=== PATIENT | female | born 1990 | race Caucasian/White ===

== ENCOUNTER 2024-03-29 19:52 | Outpatient (REF) | payer BC, SELFPAY ==
[2024-04-04 08:13] LABS: Age Gdln ACOG Testing Note (.); HPV Aptima Negative (Negative); IGP, Aptima HPV, rfx 16/18,45 Note (.)
== END 2024-03-29 19:53 | disposition home or self-care (01) ==
LOC: LAB 19:52
PROVIDERS: Visit Provider Obstetrics & Gynecology
DX: Z01.419 Encounter for gynecological examination (general) (routine) without abnormal findings (principal)
CPT/HCPCS: 87624; G0145

== ENCOUNTER 2024-04-20 08:07 | Outpatient (OUT) | payer BC, SELFPAY ==
--- NOTE | 2024-04-20 08:10 | CT_ITS ---
[address] [address] Patient Name: RIVER FITZGERALD MRN: [id number] date: 1990 Sex: F Assigned Patient Location: CT Current Patient Location: Accession/Order Number: [id number] Exam Date: 04/20/2024 09:15 Report Date: 04/21/2024 07:28 At the request of: AUTUMN SHIPLEY Procedure: CT abdomen pelvis w con EXAMINATION: CT abdomen pelvis w con HISTORY: Right sided abdominal pain R10.9 ; right groin pain COMPARISON: No relevant comparison available. TECHNIQUE: Axial, Coronal, and Sagittal images were obtained without and/or with IV contrast as indicated by examination type. Dose reduction techniques were achieved by using automated exposure control and/or adjustment of mA and/or kV according to patient size and/or use of iterative reconstruction technique. FINDINGS: LUNG BASES: No visible pulmonary or pleural disease. LIVER: No enlargement, atrophy, suspicious density, or significant focal lesion. BILIARY: No dilatation or calcification. PANCREAS: No lesion, fluid collection, or abnormal duct dilatation. SPLEEN: Enlarged, 13.9 cm. ADRENALS: No mass or enlargement. KIDNEYS: No mass, obstruction, or calcification. BOWEL/MESENTERY: No visible mass, obstruction, or bowel wall thickening. Normal appendix. AORTA/VASCULAR: No aneurysm or dissection. RETROPERITONEUM: No mass or adenopathy. LYMPH NODES: No adenopathy. URINARY BLADDER: No visible focal wall thickening, lesion, or calculus. PELVIC ORGANS: Hysterectomy. Normal appearing ovaries. ABDOMINAL WALL: No mass or hernia. BONES: No bony lesion or fracture. OTHER: Negative. CT/CT abdomen pelvis w con IMPRESSION: 1. Mild splenomegaly; nonspecific. 2. No suspicious findings to account for patient's symptoms. Electronically authenticated by: GUMARO LA Date: 04/21/2024 07:28
--- OUTSIDE RECORDS SUMMARY | 2024-04-20 08:22 | XMS_ITS | CCD ---
Author Organization [facility] Care Team Providers Care Processing Archivist Name Role Phone QUINTEN, DR LEYVA Admitting Unavailable QUINTEN, DR LEYVA Attending Unavailable REQUEST, NONE LISTED Primary Care Unavaila ble WEST, DR TERESA Ayala Consulting Unavailable QUINTEN, DR LEYVA Consulting Unavailable QUINTEN, DR LEYVA Admitting Unavailable QUINTEN, DR LEYVA Attending Unavailable REQUEST, NONE LISTED Primary Care Unavaila ble QUINTEN, DR LEYVA Consulting Unavailable QUINTEN, DR LEYVA Admitting Unavailable QUINTEN, DR LEYVA Attending Unavailable REQUEST, NONE LISTED Primary Care Unavaila ortiz SOTELO, DR LEYVA Consulting Unavailable Sayda Irene Unavailable Remedios Padilla Unavailable Rich Burnette Primary Care Physician Rich Burnette Attending Unavailable VANESSA Hammer Admitting Unavailable VANESSA Hammer Attending Unavailable Rich Burnette Attending Unavailable Rich Burnette Admitting Unavailable Rich Burnette Attending Unavailable Rich Burnette Attending Unavailable Rich Burnette Attending Unavailable VANESSA Hammer Attending Unavailable Rich Burnette Attending Unavailable AUTUMN SOTELO Attending Unavailable AUTUMN SOTELO Attending Unavailable Allergies Allergy Classification Reported Allergen(s) Allergy Type Date of Onset Reaction(s) Facility (1 source) No Known Medication Allergies; Translations: [No Known Medication Allergies] Propensity to adverse reactions (disorder) [facility] Medications Current Medications Medication Drug Class(es) Dates Sig (Normalized) Sig (Original) amoxicillin 875 mg oral tablet (2 sources) Penicillin-class Antibacterial Start: 05-09-2023 take 1 tablet by mouth every twelve hours Amoxicillin 875 MG 1 tablet Orally Twice a day for 9 days Apr, Active amoxicillin 875 mg / clavulanate 125 mg oral tablet (4 sources) Penicillin-class Antibacterial Start: 07-26-2023 amoxicillin-clavu lanate 875 mg-125 mg Tab 1 tab(s), Oral, q12hr, 20 tab(s), Refill(s) 0, [facility]/pharmacy #[id number], 157.5, cm, 07/26/23 16:44:00 EDT, Height/Length Dosing, 110.2, kg, 07/26/23 16:44:00 EDT, Weight Dosing Start Date: 07/26/23 Status: Ordered Start: 05-07-2023 take 1 tablet by john th every twelve hours Amoxicillin-Pot Clavulanate 875-125 MG 1 tablet Orally every 12 hrs for 10 day(s) Apr, Active cetirizine hydrochloride 10 mg disintegrating oral tablet (2 sources) Histamine-1 Receptor Antagonist Start: 03-19-2021 Zyrtec Dissolve 10 mg oral tablet, dispersible 10 mg = 1 tab(s), Oral, Daily, PRN for allergy symptoms, # 24 tab(s), Refills(s) 0 Start Date: 03/19/21 Status: Ordered fluticasone propionate 0.05 mg/actuat metered dose nasal spray (3 sources) Corticosteroid Start: 05-07-2023 take 2 spray(s) nasal route once daily Fluticasone Propionate 50 MCG/ACT 2 sprays Nasally Once a day for 14 day(s) Apr, Active predniSONE 20 mg oral tablet (3 sources) Start: 05-07-2023 take 1 tablet by mouth every twelve hours predniSONE 20 MG 1 tablet Orally bid for 5 day(s) Apr, Active Problems Active Problems Problem Classification Problem Date Documented Date Episodic/Chronic Abdominal pain (2 sources) Pain in pelvis 03-19-2021 Episodic Asthma (2 sources) Asthma 03-19-2021 Chronic Esophageal disorders (2 sources) Gastroesophageal reflux disease without esophagitis 03-19-2021 Chronic Genitourinary symptoms and ill-defined conditions (2 sources) Urinary symptoms 03-19-2021 Episodic Headache; including migraine (2 sources) Frequent headache 03-19-2021 Episodic Lymphadenitis (2 sources) Lymphadenitis 07-26-2023 Episodic Nonmalignant breast conditions (2 sources) Breast lump 03-19-2021 Episodic Other female genital disorders (4 sources) Other specified conditions associated with female genital organs and menstrual cycle; Translations: [OTH SPEC COND FE GEN ORG MENST CYCL] Onset: 12-21-2022 Episodic Other female genital disorders (2 sources) Dysplasia of cervix 03-19-2021 Episodic Other upper respiratory infections (1 source) Acute sinusitis, unspecified Episodic Ovarian cyst (1 source) Other ovarian cyst, left side; Translations: [OTHER OVARIAN CYST LEFT SIDE] Onset: 12-23-2022 Episodic Substance-related disorders (2 sources) Smoker 03-19-2021 Chronic Comment on above: Added secondary to d ocumentation in Social History. Unclassified (2 sources) Patient encounter status 07-26-2023 Past or Other Problems Problem Classification Problem Date Documented Date Episodic/Chronic Immunizations and screening for infectious disease (1 source) Encounter for screening for human papillomavirus (HPV); Translations: [ENC SCREENING HUMAN PAPILLOMAVIRUS] Onset: 08-20-2022 Episodic Other endocrine disorders (1 source) Endocrine disorder, unspecified; Translations: [ENDOCRINE DISORDER UNSPECIFIED] Onset: 08-20-2022 Episodic Other screening for suspected conditions (not mental disorders or infectious disease) (4 sources) Encounter for screening for malignant neoplasm of cervix; Translations: [ENC SCREENING MALIG NEOPLASM CERV] Onset: 08-18-2022 Episodic Results Test Name Value Interpretation Reference Range Facility Family Medicine Office/Clini c Noteon 10-27-2023 Family Medicine Office/Clinic Note HPI Staff River is a 33 year old female presenting for acute visit Respiratory C/O: Onset:6 days Body aches: no Chest congestion: yes Chills: no Cough: yes Sputum production: yes yellow Sore throat: no Ear complaints: yes full Eye itching/watering: yes Fever: no Headache: yes Nasal congestion: yes Nasal discharge: no Poor appetite: no Reduced activity: no Sinus pain/pressure: yes Sneezing: yes Wheezing: no Ill contacts: yes son Remedies tried: Mucinex, Sudafed, Benadryl congestion at night History of Present Illness - Here for sinus issues. - See staff HPI. Review of Systems PHQ Score Initial Depression Screen Score: 0 SCORE Physical Exam Vitals & Measurements T: 36.9 ?C(Tympanic) HR: 76(Peripheral) BP: 138/80 SpO2: 98% HT: 62 in HT: 157.5 cm WT: 111.1 kg WT: 244.42 lb BMI: 44.79 General: alert, no acute distress ENMT: oral mucosa moist, Cardiovascular: regular rate and rhythm, normal peripheral perfusion Respiratory: Lungs CTA, respirations non labored Extremities: no deformity, no trauma Neurological: oriented x 4, LOC appropriate for age, CN II-XII intact, motor strength equal & normal bilaterally, speech normal Abdomen: Soft, Nontender, Non-distended, + BS Assessment/Plan 1. Sinus pressure (J34.89: Other specified disorders of nose and nasal sinuses) Covid negative Flu negative - Will do pocket script of Azithromycin and Medrol. - Pt will need to use OTC meds first. - If no improvement, ok to take Meds as above 2. BMI 40.0-44.9, adult (Z68.41: Body mass index [BMI] 40.0-44.9, adult) - BMI education given 3. Smoker (F17.200: Nicotine dependence, unspecified, uncomplicated) - Please stop smoking. Follow-up No qualifying data available Patient Education BMI for Adults Problem List/Past Medical History Ongoing Asthma Breast lump in female Cervical dysplasia Frequent headaches GERD without esophagitis Pelvic pain Physical exam Sinus pressure Smoker Historical No qualifying data Procedure/Surgical History Adenoidectomy, delivery, Excision of right breast lump, Hysterectomy, LEEP (Loop electrosurgical excision procedure) of cervix, Tonsillectomy. Medications Azithromycin 3 Day Dose Pack 500 mg oral tablet, 500 mg= 1 tab(s), Oral, Daily Zyrtec Dissolve 10 mg oral tablet, dispersible, 10 mg= 1 tab(s), Oral, Daily, PRN Allergies Augmentin (Vomiting) penicillins (Vomiting) Social History Tobacco Former smoker, quit more than 30 days ago Tobacco Use:. Current vaping or e-cigarette use Smokeless Tobacco Use:. Vaping, Household tobacco concerns: No., 09/30/2023 Family History Asthma: Mother and Sister. Hypertension: Father. Immunizations Vaccine Date Status Comments influenza virus vaccine, inactivated - Not Given Postpone due to refusal influenza virus vaccine, inactivated 08/24/2019 Recorded influenza virus vaccine, inactivated 12/01/2017 Recorded diphtheria/pertussis , acel/tetanus adult 12/10/2015 Recorded hepatitis B pediatric vaccine 11/11/2000 Recorded hepatitis B pediatric vaccine 07/11/2000 Recorded hepatitis B pediatric vaccine 05/09/2000 Recorded Hib, unspecified formulation 05/28/1991 Recorded measles/mumps/rubell a virus vaccine 07/11/1990 Recorded [facility] Comment on above: Result Comment: Elec tronically Signed By: Rich Burnette MD\.br\Date and Time Signed: 10/27/23 12:56 EST Ambulatory Visit Summaryon 1 11-30-2022 Ambulatory Visit Summary RIVER FITZGERALD :1990 Visit Date:09/30/2023 Ambulatory Visit Instructions Your Diagnosis BMI 40.0-44.9, adult Smoker Your Care Team Attending Physician - Rich Burnette MD Primary Care Physician - Rich Burnette MD This Is Your Medications List cetirizine (Zyrtec Dissolve 10 mg oral tablet, dispersible) Procedures Performed Adenoidectomy, delivery, Excision of right breast lump, Hysterectomy, LEEP (Loop electrosurgical excision procedure) of cervix, Tonsillectomy. Discharge Vitals Temperature (Tympanic) 36.9 ?C Heart Rate (Peripheral) 76 Blood Pressure 138/80 Height 157.5 cm Height 62 in Weight 111.1 kg Weight 244.42 lb BMI 44.79 Medications What How Much When Instructions Unchanged cetirizine (Zyrtec Dissolve 10 mg oral tablet, dispersible) 1 Tablets By Mouth Every day as needed for for allergy symptoms Allergies Augmentin (Vomiting) penicillins (Vomiting) Problems Ongoing - Any problem that you are currently receiving treatment for. Asthma Breast lump in female Cervical dysplasia Frequent headaches GERD without esophagitis Lymphadenitis Pelvic pain Physical exam Smoker UTI symptoms Patient Survey You may receive a survey via text or e-mail asking about your office visit. Please share your experience with us by completing your survey. We appreciate your feedback and thank you for choosing us for your care. [facility] Patient Educationon 09-30-20 Patient Education Nutrition BMI for Adults What is BMI? Body mass index (BMI) is a number that is calculated from a person's weight and height. BMI can help estimate how much of a person's weight is composed of fat. BMI does not measure body fat directly. Rather, it is an alternative to procedures that directly measure body fat, which can be difficult and expensive. BMI can help identify people who may be at higher risk for certain medical problems. What are BMI measurements used for? BMI is used as a screening tool to identify possible weight problems. It helps determine whether a person is obese, overweight, a healthy weight, or underweight. BMI is useful for: ? Identifying a weight problem that may be related to a medical condition or may increase the risk for medical problems. ? Promoting changes, such as changes in diet and exercise, to help reach a healthy weight. BMI screening can be repeated to see if these changes are working. How is BMI calculated? BMI involves measuring your weight in relation to your height. Both height and weight are measured, and the BMI is calculated from those numbers. This can be done either in [place] ([place] or metric measurements. Note that charts and online BMI calculators are available to help you find your BMI quickly and easily without having to do these calculations yourself. To calculate your BMI in [place] ([place] measurements: 1. Measure your weight in pounds (lb). 2. Multiply the number of pounds by 703. ? For example, for a person who weighs 180 lb, multiply that number by 703, which equals 126,540. 3. Measure your height in inches. Then multiply that number by itself to get a measurement called inches squared. ? For example, for a person who is 70 inches tall, the inches squared measurement is 70 inches x 70 inches, which equals 4,900 inches squared. 4. Divide the total from step 2 (number of lb x 703) by the total from step 3 (inches squared): 126,540 ? 4,900 = 25.8. This is your BMI. To calculate your BMI in metric measurements: 1. Measure your weight in kilograms (kg). 2. Measure your height in meters (m). Then multiply that number by itself to get a measurement called meters squared. ? For example, for a person who is 1.75 m tall, the meters squared measurement is 1.75 m x 1.75 m, which is equal to 3.1 meters squared. 3. Divide the number of kilograms (your weight) by the meters squared number. In this example: 70 ? 3.1 = 22.6. This is your BMI. What do the results mean? BMI charts are used to identify whether you are underweight, normal weight, overweight, or obese. The following guidelines will be used: ? Underweight: BMI less than 18.5. ? Normal weight: BMI between 18.5 and 24.9. ? Overweight: BMI between 25 and 29.9. ? Obese: BMI of 30 or above. Keep these notes in mind: ? Weight includes both fat and muscle, so someone with a muscular build, such as an athlete, may have a BMI that is higher than 24.9. In cases like these, BMI is not an accurate measure of body fat. ? To determine if excess body fat is the cause of a BMI of 25 or higher, further assessments may need to be done by a health care provider. ? BMI is usually interpreted in the same way for men and women. Where to find more information For more information about BMI, including tools to quickly calculate your BMI, go to these websites: ? Centers for Disease Control and Prevention: www.cdc.gov ? [place] [employer]: www.heart.org ? National Heart, Lung, and Blood [place]: www.nhlbi.nih.gov Summary ? Body mass index (BMI) is a number that is calculated from a person's weight and height. ? BMI may help estimate how much of a person's weight is composed of fat. BMI can help identify those who may be at higher risk for certain medical problems. ? BMI can be measured using Bulgarian measurements or metric measurements. ? BMI charts are used to identify whether you are underweight, normal weight, overweight, or obese. This information is not intended to replace advice given to you by your health care provider. Make sure you discuss any questions you have with your health care provider. Document Revised: 07/23/2020 Document Reviewed: 05/30/2020 [employer] Patient Education ? 2022 [employer] [facility] Ambulatory Visit Summaryon 1 Ambulatory Visit Summary RIVER FITZGERALD :1990 Visit Date:09/08/2023 Ambulatory Visit Instructions Your Diagnosis BMI 45.0-49.9, adult Class 3 obesity Back pain Tests Performed Urnls Dip Stick Non-Auto w/o Micrscpy POC 40406 Your Care Team Attending Physician - Ana Rowell Primary Care Physician - Vasile FRAGOSO, Rich Zhou This Is Your Medications List cetirizine (Zyrtec Dissolve 10 mg oral tablet, dispersible) Procedures Performed Adenoidectomy, delivery, Excision of right breast lump, Hysterectomy, LEEP (Loop electrosurgical excision procedure) of cervix, Tonsillectomy. Discharge Vitals Temperature (Temporal Artery) 37.2 ?C Heart Rate (Peripheral) 78 Respiratory Rate 16 Blood Pressure 130/72 Height 157.5 cm Height 62 in Weight 110.3 kg Weight 242.66 lb BMI 44.46 Medications What How Much When Instructions Unchanged cetirizine (Zyrtec Dissolve 10 mg oral tablet, dispersible) 1 Tablets By Mouth Every day as needed for for allergy symptoms Test Results Urnls Dip Stick Non-Auto w/o Micrscpy POC 48510 (09/08/2023) Bilirubin Urine Dipstick - Negative Blood Urine Dipstick - Negative Glucose Urine Dipstick - Negative Ketones Urine Dipstick - Negative Leukocytes Urine Dipstick - Negative Nitrite Urine Dipstick - Negative Protein Urine Dipstick - Negative Specific [place] Urine Dipstick - 1.010 Urine Appearance Urine Dipstick - Clear Urine Color Urine Dipstick - Light yellow Urobilinogen Urine Dipstick - Normal 0.2-1 EU/dl pH Urine Dipstick - 6.5 Medications and Immunizations Administered Not Given influenza virus vaccine, inactivated, Postpone due to refusal Allergies No Known Medication Allergies Problems Ongoing - Any problem that you are currently receiving treatment for. Asthma Breast lump in female Cervical dysplasia Frequent headaches GERD without esophagitis Lymphadenitis Pelvic pain Physical exam Smoker UTI symptoms Patient Survey You may receive a survey via text or e-mail asking about your office visit. Please share your experience with us by completing your survey. We appreciate your feedback and thank you for choosing us for your care. [facility] Auto Diffon 09-08-2023 Basophils/100 WBC (Bld) 0.5 % Normal 0.0-2.0 [facility] Comment on above: Order Comment: Order Added by Discern Expert. Performed By: #### 2 [id number], 1970914, 5962259, 7177959, 9619704, [id number] #### [facility] [address] [place] [address]392 Basophils/Leukocytes Auto (Bld) [Pure # fraction] 0.0 E9/L Normal 0.0-0.2 [facility] Comment on above: Order Comment: Order Added by Discern Expert. Performed By: #### 2 114964, 4878940, 2850187, 2044206, 1975471, [id number] #### [facility] [address] [place] [address] 21136 Eosinophils/100 WBC (Bld) 2.1 % Normal 0.0-8.0 [facility] Comment on above: Order Comment: Order Added by Discern Expert. Performed By: #### 2 988658, 7263311, 8045685, 8437359, 9429879, 12532542 #### [facility] [address] [place] [address] 38840 Eosinophils/Leukocyte s Auto (Bld) [Pure # fraction] 0.2 E9/L Normal 0.0-0.5 [facility] Comment on above: Order Comment: Order Added by Discern Expert. Performed By: #### 2 535228, 9354331, 1877263, 0024906, 1077893, [id number] #### [facility] [address] [place] [address] 56461 Lymphocytes/100 WBC (Bld) 24.1 % Normal 14.0-50.0 [facility] Comment on above: Order Comment: Order Added by Discern Expert. Performed By: #### 2 989480, 9996565, 2221218, 2743344, 1018310, 30213608 #### [facility] [address] [place] [address] 94534 Lymphocytes/Leukocyte s Auto (Bld) [Pure # fraction] 2.0 E9/L Normal 1.0-4.0 [facility] Comment on above: Order Comment: Order Added by Discern Expert. Performed By: #### 2 885877, 6774690, 9079676, 4822988, 5650478, 65731210 #### [facility] [address] [place] [address] 76224 Monocytes/100 WBC (Bld) 5.0 % Normal 4.0-14.0 [facility] Comment on above: Order Comment: Order Added by Discern Expert. Performed By: #### 2 263983, 7077006, 7439599, 0544646, 8179133, 13476652 #### [facility] [address] [place] [address] Monocytes/Leukocytes Auto (Bld) [Pure # fraction] 0.4 E9/L Normal 0.2-1.0 [facility] Comment on above: Order Comment: Order Added by Discern Expert. Performed By: #### 2 498653, 5098569, 6910209, 7529094, 4099638, 67444057 #### [facility] [address] [place] [address] 30328 Neutrophils/100 WBC (Bld) 68.3 % Normal 36.0-75.0 [facility] Comment on above: Order Comment: Order Added by Discern Expert. Performed By: #### 2 201905, 8253317, 2201982, 5023843, 3939902, 91660650 #### [facility] [address] [place] [address] 35601 Neutrophils/Leukocyte s Auto (Bld) [Pure # fraction] 5.5 E9/L Normal 2.0-7.5 [facility] Comment on above: Order Comment: Order Added by Discern Expert. Performed By: #### 2 516977, 6319267, 4658566, 7465224, 3349819, 42614084 #### [facility] [address] [place] [address] 13609 CBC w/ Auto Diffon Erythrocyte distribution width (RBC) [Ratio] 13.7 % Normal 10.9-14.2 [facility] Comment on above: Performed By: #### 2 096372, 1771873, 5312786, 7938979, 3039455, 08736486 #### [facility] [address] [place] [address] 09540 Hematocrit (Bld) [Volume fraction] 41.8 % Normal 34.0-46.0 [facility] Comment on above: Performed By: #### 2 831777, 6309311, 4873710, 5811351, 1663090, 79853798 #### [facility] [address] [place] [address] Hemoglobin (Bld) [Mass/Vol] 13.7 g/dL Normal 12.0-16.0 [facility] Comment on above: Performed By: #### 2 194429, 3912005, 0184708, 5251229, 2524691, 59774601 #### [facility] [address] [place] [address] 29251 MCH (RBC) [Entitic mass] 28.7 pg Normal 27.0-34.0 [facility] Comment on above: Performed By: #### 2 391458, 8153605, 7862355, 4595965, 4597446, 53594689 #### [facility] [address] [place] [address] 00711 MCHC (RBC) [Mass/Vol] 32.8 g/dL Normal 31.4-36.0 [facility] Comment on above: Performed By: #### 2 686335, 3068190, 1173056, 6439467, 3412008, 77967010 #### [facility] [address] [place] [address] 13233 MCV (RBC) [Entitic vol] 87.5 fL Normal 80.0-100.0 [facility] Comment on above: Performed By: #### 2 588303, 0448658, 8591978, 4752924, 9255436, 17495380 #### [facility] [address] [place] [address] 93960 Platelet mean volume (Bld) [Entitic vol] 8.7 fL Normal 6.4-10.8 [facility] Comment on above: Performed By: #### 2 744502, 5189747, 7637646, 5849325, 8716476, 68762086 #### [facility] [address] [place] [address] 29925 Platelets (Bld) [#/Vol] 264.0 E9/L Normal 150.0-500.0 [facility] Comment on above: Performed By: #### 2 809898, 2672403, 3452345, 0482685, 7022003, 97253744 #### [facility] [address] [place] [address] RBC (Bld) [#/Vol] 4.8 E12/L Normal 4.3-5.9 [facility] Comment on above: Performed By: #### 2 932127, 6579278, 5890026, 4354834, 8390635, 70964593 #### [facility] [address] [place] [address] WBC corrected for nucl RBC Auto (Bld) [#/Vol] 8.1 E9/L Normal 4.0-11.0 [facility] Comment on above: Performed By: #### 2 843954, 7303737, 4170508, 3931546, 2967416, 34231306 #### [facility] [address] [place] [address] CHEMISTRYOrdered By: SYSTEM SYSTEM on 09-08-2023 Albumin [Mass/Vol] 4.4 g/dL Normal 3.3 - 5.0 gm/dL [facility] Albumin/Globulin [Mass ratio] 1.5 {ratio} Normal 1.1 - 2.2 [facility] ALP [Catalytic activity/Vol] 66 [iU]/d Normal 21 - 98 Int._Unit/L [facility] ALT No additional P-5'-P [Catalytic activity/Vol] 17 [iU]/d Normal 6 - 46 Int._Unit/L [facility] Anion gap [Moles/Vol] 6 mmol/L Normal 6 - 16 mEq/L [facility] AST [Catalytic activity/Vol] 15 [iU]/d Normal 5 - 43 Int._Unit/L [facility] Bilirubin [Mass/Vol] 0.3 mg/dL Normal 0.0 - 1 .1 mg/dL [facility] Calcium [Mass/Vol] 9.4 mg/dL Normal 8.9 - 11. 1 mg/dL [facility] Chloride [Moles/Vol] 110 mmol/L Normal 101 - 1 11 mmol/L [facility] Cholesterol [Mass/Vol] 169 mg/dL Normal 120 - 200 mg/dL [facility] Cholesterol in HDL [Mass/Vol] 53 mg/dL Invalid Interpretation Code [facility] Comment on above: Interpretive Data: H DL > or equal to 60 mg/dL: Low cardiovascular risk HDL < 40 mg/dL : High cardiovascular risk Cholesterol in LDL [Mass/Vol] 94 mg/dL Normal <=129mg/dL [facility] Cholesterol in VLDL [Mass/Vol] 27 mg/dL Normal 7 - 40 mg/dL [facility] CO2 [Moles/Vol] 24 mmol/L Normal 21 - 31 mmol/L [facility] Creatinine [Mass/Vol] 0.7 mg/dL Normal 0.5 - 1.3 mg/dL [facility] GFR/1.73 sq M.predicted among non-blacks MDRD (S/P/Bld) [Vol rate/Area] 116 mL/min/1.73 m2 Normal >=59mL/min/1. 73 m2 [facility] Comment on above: Interpretive Data: C hronic kidney disease could be indicated at eGFR's of less than 60 mL/min/1.73m2. Kidney failure is indicated at less than 15 mL/min/1.73m2. Globulin (S) [Mass/Vol] 3.0 g/dL Normal 1.4 - 4.0 gm/dL [facility] Glucose [Mass/Vol] 80 mg/dL Normal 55 - 199 mg/dL [facility] Comment on above: Interpretive Data: I f this glucose result represents a fasting glucose, interpretation should refer to the following reference range: 55-99 mg/dL Potassium [Moles/Vol] 3.9 mmol/L Normal 3.5 - 5.3 mmol/L [facility] Protein [Mass/Vol] 7.4 g/dL Normal 6.0 - 7.8 gm/dL [facility] Sodium [Moles/Vol] 136 mmol/L Normal 135 - 145 mmol/L [facility] Triglyceride [Mass/Vol] 133 mg/dL Normal <=149mg/dL [facility] TSH Qn 1.96 m[IU]/L Normal 0.34 - 5.60 mcIU/mL [facility] Urea nitrogen [Mass/Vol] 15 mg/dL Normal 5 - 21 mg/dL [facility] Urea nitrogen/Creatinine [Mass ratio] 21 mg/mg High [facility] CMPon 09-08-2023 Albumin [Mass/Vol] 4.4 g/dL Normal 3.3-5.0 [facility] Comment on above: Performed By: #### 2 172165, 7314678, 1348682, 6063913, 9078858, [id number] #### [facility] [address] [place] [address] Albumin/Globulin (S) [Mass conc ratio] 1.5 Normal 1.1-2.2 [facility] Comment on above: Performed By: #### 2 611974, 0456612, 7296163, 0440519, 6038045, [id number] #### [facility] [address] [id number] ALP [Catalytic activity/Vol] 66 Int._Unit/L Normal 21-98 [facility] Comment on above: Performed By: #### 2 805904, 0389347, 1471242, 8256120, 5678713, [id number] #### [facility] [address] [place] [address] ALT No additional P-5'-P [Catalytic activity/Vol] 17 Int._Unit/L Normal 6-46 [facility] Comment on above: Performed By: #### 2 152719, 4115708, 8007643, 4239259, 0046450, [id number] #### [facility] [address] [place] [address] Anion gap [Moles/Vol] 6 mmol/L Normal 6-16 [facility] Comment on above: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 Result Comment: This nucleic acid amplification test detects fourteen high-risk HPV types (16,18,31,33,35,39,45,51,52,56,58,59,66,68) without differentiation. Performed at: =G Performed By: #### [id number] #### [facility] [address] [place] [address] Dr. Edie Rincon Methodology: Comment Normal [facility] Comment on above: Result Comment: This liquid based ThinPrep(R) pap test was screened with the use of an image guided system. Performed at: WB Performed By: #### [id number] #### [facility] [address] [place] [address] Dr. Edie Rincon Note: Comment Normal [facility] Comment on above: Result Comment: The Pap smear is a screening test designed to aid in the detection of premalignant and malignant conditions of the uterine cervix. It is not a diagnostic procedure and should not be used as the sole means of detecting cervical cancer. Both false-positive and false-negative reports do occur. . Performed at: WB Performed By: #### [id number] #### [facility] [address] [place] [address] Dr. Edie Rincon Performed by: Comment Normal [facility] Comment on above: Result Comment: Robert Martell [employer] Supervisor (ASCP) Performed at: WB Performed By: #### [id number] #### [facility] [address] [place] [address] Dr. Edie Rincon Specimen adequacy: Comment Normal [facility] Comment on above: Result Comment: Sati sfactory for evaluation. No endocervical component is identified. Performed at: WB Performed By: #### [id number] #### [facility] [address] [place] [address] Dr. Edie Rincon SEROTONINon 08-25-2022 Serotonin, Serum 54 ng/mL Normal 31-207 [facility] Comment on above: Performed By: #### F RECORT #### [facility] [address] [place] [address] Dr. Edie Rincon FREE TESTOSTERONEon 08-23-20 22 Free Testosterone(Direct) 2.8 pg/mL Normal 0.0-4.2 [facility] Comment on above: Performed By: #### F T4, FERR #### [facility] [address] [place] [address] Dr. Edie Rincon REVERSE T3on 08-23-2022 Reverse T3, Serum 11.1 ng/dL Normal 9.2-24.1 [facility] Comment on above: Result Comment: This test was developed and its performance characteristics determined by [employer]. It has not been cleared or approved by the Food and Drug Administration. Performed By: #### F RECORT #### [facility] [address] [address] [address] Edie Rincon VIT D 1 25 DIHYDROXYon 08-21 Calcitriol(1,25 di-OH Vit D) 18.8 pg/mL Critically low 24.8-81.5 [facility] Comment on above: Result Comment: Pl ease note reference interval change Performed By: #### V [id number] #### [facility] [address] [place] [address] Dr. Edie Rincon C-PEPTIDE, SERUMon 2 C-Peptide, Serum 2.9 ng/mL Normal 1.1-4.4 [facility] Comment on above: Result Comment: C-Pe ptide reference interval is for fasting patients. Performed By: #### F RECORT #### [facility] [address] [place] [address] Dr. Edie Rincon DHEA-SULFATEon 08-20-2022 DHEA-Sulfate 271.0 ug/dL Normal 84.8-378.0 [facility] Comment on above: Performed By: #### D HEASUL #### [facility] [address] [place] [address] Dr. Edie Rincon ESTRADIOLon 08-20-2022 Estradiol 68.2 pg/mL Normal [facility] Comment on above: Result Comment: Adul t Female: Follicular phase 12.5 - 166.0 Ovulation phase 85.8 - 498.0 Luteal phase 43.8 - 211.0 Postmenopausal <6.0 - 54.7 1st trimester 215.0 - >4300.0 Kai ECLIA methodology Performed By: #### F RECORT #### [facility] [address] [place] [address] Dr. Edie Rincon INSULINon 08-20-2022 Insulin 17.7 uIU/mL Normal 2.6-24.9 [facility] Comment on above: Performed By: #### F T4, FERR #### [facility] [address] [place] [address] Dr. Edie Rincon PROGESTERONEon 08-20-2022 Progesterone 4.5 ng/mL Normal [facility] Comment on above: Result Comment: Foll icular phase 0.1 - 0.9 Luteal phase 1.8 - 23.9 Ovulation phase 0.1 - 12.0 First trimester 11.0 - 44.3 Second trimester 25.4 - 83.3 Third trimester 58.7 - 214.0 Postmenopausal 0.0 - 0.1 Performed By: #### F RECORT #### [facility] [address] [place] [address] Dr. Edie Rincon SEX HORMONE-BINDING GLOBULIN on 08-20-2022 Sex Horm Binding Glob, Serum 54.6 nmol/L Normal 24.6-122.0 [facility] Comment on above: Performed By: #### F T4, FERR #### [facility] [address] [place] [address] Dr. Edie Rincon T3, TOTAL (TRIIODOTHYRONINE) on 08-20-2022 T3, TOTAL 128 ng/dL Normal 71-180 [facility] Comment on above: Performed By: #### F RECORT #### [facility] [address] [place] [address] Dr. Edie Rincon TESTOSTERONE, TOTALon 2021 Testosterone [Mass/Vol] 45 ng/dL Normal 8-60 [facility] Comment on above: Performed By: #### T ESTTOT #### [facility] [address] [place] [address] Dr. Edie Rincon THYROGLOBULIN ABon Thyroglobulin Antibody <1.0 Normal 0.0-0.9 [facility] Comment on above: Result Comment: Thyr oglobulin Antibody measured by [employer] Methodology Performed By: #### F T4, FERR #### [facility] [address] [place] [address] Dr. Edie Rincon THYROID PEROXIDASE ABon Thyroid Peroxidase (TPO) Ab <8 Normal 0-34 [facility] Comment on above: Performed By: #### F T4, FERR #### [facility] [address] [place] [address] Dr. Edie Rincon FERRITINon 08-18-2022 Ferritin [Mass/Vol] 119.0 ng/mL Normal 6.2-137.0 [facility] Comment on above: Performed By: #### F T4, FERR #### [facility] [address] [place] [address] Dr. Edie Rincon FREE T3on 08-18-2022 FREE T3 2.18 pg/mlL Normal 2.18-3.98 [facility] Comment on above: Performed By: #### F T4, FERR #### [facility] [address] [place] [address] Dr. Edie Rincon FREE T4on 08-18-2022 Free T4 [Mass/Vol] 0.84 ng/dL Normal 0.76-1.46 [facility] Comment on above: Performed By: #### F T4, FERR #### [facility] [address] [place] [address] Dr. Edie Rincon GLUCOSE BLOODon 08-18-2022 Glucose [Mass/Vol] 89 mg/dL Normal 74-106 [facility] Comment on above: Performed By: #### F T4, FERR #### [facility] [address] [place] [address] Dr. Edie Rincon GLYCOHEMOGLOBIN A1Con 2021 ADA RECOMMENDATION SEE BELOW Normal [facility] Comment on above: Result Comment: ADA RECOMMENDED LIMIT 4.0 - 6.0 ADA THERAPEUTIC TARGET < 7.0 ACTION SUGGESTED > 7.0 Performed By: #### A 1C #### [facility] [address] [place] [address] Dr. Edie Rincon Glucose [Mass/Vol] 108 mg/dL Normal [facility] Comment on above: Performed By: #### A 1C #### [facility] [address] [place] [address] Dr. Edie Rincon HbA1c (Bld) [Mass fraction] 5.4 % Normal 4.5-6.2 [facility] Comment on above: Performed By: #### A 1C #### [facility] [address] [place] [address] Dr. Edie Rincon T4on 08-18-2022 T4 [Mass/Vol] 6.70 ug/dL Normal 4.80-13.90 [facility] Comment on above: Performed By: #### F T4, FERR #### [facility] [address] [place] [address] Dr. Edie Rincon TSHon 08-18-2022 TSH 1.961 uIU/mL Normal 0.358-3.740 [facility] Comment on above: Performed By: #### F T4, FERR #### [facility] [address] [place] [address] Dr. Edie Rincon Vital Signs Date Time Vital Sign Value Performing Clinician Facility 05-07-2023 12:05-0400 Body height 157.48 cm Sayda Maria Victoria Other [facility] Other 05-07-2023 12:05-0400 Body mass index (BMI) [Ratio] 44.81 kg/m2 Sayda Gillespiemond Other [facility] Other 05-07-2023 12:05-0400 Body temperature 97.3 [degF] Sayda Gillespiemond Other [facility] Other 05-07-2023 12:05-0400 Body weight 111.13 kg Sayda Irene Other [facility] Other 05-07-2023 12:05-0400 Diastolic blood pressure 81 mm[Hg] Sayda Gillespiemond Other [facility] Other 05-07-2023 12:05-0400 Respiratory rate 18 /min Sayda Gillespiemond Other [facility] Other 05-07-2023 12:05-0400 SaO2% (BldA) [Mass fraction] 98 % Sayda Gillespiemond Other [facility] Other 05-07-2023 12:05-0400 Systolic blood pressure 125 mm[Hg] Sayda Irene Other [facility] Other Encounters Encounter Date Encounter Type Care Provider Facility Start: 03-29-2024 End: 03-29-2024 ambulatory AUTUMN QUINTEN Not Available Start: 12-06-2023 End: 12-06-2023 ambulatory AUTUMN QUINTEN Not Available Start: 09-30-2023 End: 10-01-2023 ambulatory Rich Zhou Vasile Facility: [facility] Start: 09-08-2023 End: 09-09-2023 ambulatory 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 Ana L Jaquelin Facility:[facility] Start: 09-08-2023 End: 09-08-2023 Lab Drop off Ana L Jaquelin [facility] Start: 08-08-2023 End: 08-09-2023 ambulatory Rich Zhou Vasile Facility: [facility] Start: 07-26-2023 End: 07-27-2023 ambulatory Rich Zhou Vasile Facility:[facility] Start: 07-26-2023 End: 07-26-2023 Lab Drop off Rich Zhou Vasile [facility] Start: 06-02-2023 End: 06-03-2023 ambulatory Rich Burnette Facility: [facility] Start: 05-11-2023 End: 05-11-2023 ambulatory Sayda Irene Other [facility] Other Start: 05-11-2023 Telephone encounter [facility] Start: 05-09-2023 End: 05-09-2023 ambulatory Remedios Padilla Other [facility] Other Start: 05-09-2023 Telephone encounter [facility] Start: 05-07-2023 End: 05-07-2023 ambulatory Sayda Irene Other [facility] [employer] Other Start: 05-07-2023 Office outpatient vi sit 15 minutes Sayda Irene [facility] Start: 05-05-2023 ambulatory Rich Burnette Facility:[facility] Start: 12-21-2022 End: 12-22-[address] AUTUMN SOTELO Facility:[facility] Start: 08-18-2022 End: 08-18-[address] AUTUMN SOTELO Facility:[facility] Start: 08-18-2022 End: 08-19-[address] AUTUMN SOTELO Facility:[facility] Procedures Date Procedure Procedure Detail Performing Clinician Adenoid excision Rich Vasile section Rich Burnette Hysterectomy Rich Burnette Loop electrosurgical excision procedure of cervix Richtejal Burnette Lumpectomy of right breast S amtejal Burnette Tonsillectomy Rich Burnette Immunizations Immunization Date Immunization Notes Care Provider Fa cili 08-24-2019 influenza virus vaccine, unspecified formulation Rich Burnette [facility] [employer] 12-01-2017 influenza virus vaccine, unspecified formulation Rich Burnette [facility] [employer] 12-10-2015 tetanus toxoid, reduced diphtheria toxoid, and acellular pertussis vaccine, adsorbed Rich Burnette [facility] [employer] 11-11-2000 hepatitis B vaccine, pediatric or pediatric/adolescent dosage Rich Vasile [facility] [employer] 07-11-2000 hepatitis B vaccine, pediatric or pediatric/adolescent dosage Rich Burnette [facility] [employer] 05-09-2000 hepatitis B vaccine, pediatric or pediatric/adolescent dosage [facility] 05-[facility]-1991 Hib, unspecified formulation Rich Burnette [facility] 07-11-1990 measles, mumps and rubella virus vaccine Rich Burnette [facility] NEGATED: Highlighted row has not occurred!09-08-2023 influenza virus vaccine, unspecified formulation Ana Hammer [facility] Payers Date Payer Category Payer Unknown [id number] 1988 Unknown [id number] 2.16.84 [id number] 1988 Unknown [id number] 2.16.84 [id number] 1988 Unknown [id number] 2.16.84 [id number] 1988 Unknown [id number] 2.16.8 [id number] 1988 Unknown [id number] 2.16.8 [id number] 1988 Unknown [id number] 2.16.8 [id number] 1988 Unknown [id number] 2.16.8 [id number] 1988 Unknown [id number] 2.16.8 [id number] 1988 Unknown [id number] 2.16.8 [id number] 1988 Unknown [id number] 2.16.8 [id number] 1988 Unknown [id number] 2.16.8 [id number] 1988 Unknown [id number] 2.16.84 [id number] 1988 Unknown [id number] 2.16.84 [id number] 1959 Unknown [id number] Social History Date Type Detail Facility Unknown if ever smoked [facility] Other Sex Assigned At [facility] Start: 07-26-2023 End: 09-08-2023 Tobacco smoking status Ex-smoker (finding) [facility] Evaluation + Plan note 07-26-2023 Laboratory Note Date & Type Note Facility 07-26-2023 Evaluation + Plan note Future Scheduled TestsCBC w/ Auto Diff 07/26/23Comprehensive Metabolic Panel 07/26/23Lipid Panel 07/26/23 [facility] Evaluation note 05-07-2023 Note Date & Type Note Facility 05-07-2023 Evaluation note Encounter Date Diagnosis Assessment Notes Apr, Acute sinusitis, recurrence not specified, unspecified location (ICD-10 - J01.90) Sinusitis home care material was printed Drink plenty fluids, get plenty of rest. Take the amoxicillin with clavulanate and prednisone as prescribed until gone. Use the fluticasone nasal spray as prescribed and to your symptoms improved. Take Tylenol or Motrin as needed for aches pains or fevers. Follow-up with your family physician if no improvement in 2 to 3 days [facility] Other Evaluation + Plan note Laboratory Note Date & Type Note Facility Evaluation + Plan note Future Appointments Appointment Date:08/08/2023 05:40:00 PM Scheduled Provider: Location:[facility] Appointment Type: Lab Draw Future Scheduled TestsCBC w/ Auto Diff 07/26/23Comprehensive Metabolic Panel 07/26/23Lipid Panel 07/26/23 [facility] Evaluation note Note Date & Type Note Facility Evaluation note No Information [employer] Other History general Narrative - Reported Note Date & Type Note Facility History general Narrative - Reported Type Surgical History LEEP Surgical History tonsillectomy and adenoidectomy Surgical History C section Surgical History right breast lumpectomy Hospitalization History see above [facility] Other Hospital course Narrative Note Date & Type Note Facility Hospital course Narrative No data available for this section [facility] Hospital Discharge instructions Note Date & Type Note Facility Hospital Discharge instructions No data available for this section [facility] Progress note Note Date & Type Note Facility Progress note No data available for this section [facility] Summary Purpose Family History No Family History Records Found No data available for this section No Family History Records FoundNo Family History Records Found Advance Directives No Advanced Directives Records FoundNo Advanced Directives Records FoundNo Advanced Directives Records Found Additional Source Comments INFORMATION SOURCE (unrecogn ized section and content) DATE CREATED AUTHOR 12/24/2022 [facility] DATE CREATED AUTHOR AUTHOR'S ORGANIZ ATION 10/29/2023 [facility] DATE CREATED AUTHOR AUTHOR'S ORGANIZ ATION 03/31/2024 [facility] EPIC REASON FOR VISIT (unrecogniz ed section and content) bilateral ear pressure. sinu s face painNo InformationMEDICATIONS Patient Care team informatio n (unrecognized section and content) Personnel Name: Rich Burnette MD Address: Address: [address] [place] [address] Personnel Name: Rich Burnette MD Address: Address: [address] [place] [address] FOR RECORDS PERTAINING TO PATIENTS WHO ARE OR HAVE BEEN ENROLLED IN A CHEMICAL DEPENDENCY/SUBSTANCEABUSE PROGRAM, SOME INFORMATION MAY BE OMITTED. This clinical summary was aggregated from multiple sources. Caution should be exercised in using it in the provision of clinical care. This summary normalizes information from multiple sources, and as a consequence, information in this document may materially change the coding, format and clinical context of patient data. In addition, data may be omitted in some cases. CLINICAL DECISIONS SHOULD BE BASED ON THE PRIMARY CLINICAL RECORDS. [facility]. provides no warranty or guarantee of the accuracy or completeness of information in this document.
== END 2024-04-20 08:08 | disposition home or self-care (01) ==
LOC: CT 08:07
PROVIDERS: Visit Provider Obstetrics & Gynecology
DX: R10.9 Unspecified abdominal pain (principal); R19.03 Right lower quadrant abdominal swelling, mass and lump; Z78.0 Asymptomatic menopausal state; R53.83 Other fatigue; Z90.710 Acquired absence of both cervix and uterus
CPT/HCPCS: 74177; Q9967

== ENCOUNTER 2025-05-07 19:07 | Emergency (ER) | payer BC, SELFPAY ==
--- OUTSIDE RECORDS SUMMARY | 2025-05-07 19:14 | XMS_ITS | Clinical Summary ---
Author Organization [employer] Address [id number] [address] [place] [address] Care Team Providers Care [employer] Ste[employer] Name Role Phone Rich Burnette MD Primary Care Provider [phone] Allergies No known active allergies Medications No known medications Active Problems No known active problems Family History Medical History Relation Name Comments Diabetes Maternal Grandfather Breast cancer Maternal Grandmother Cancer Maternal Grandmother Colon cancer Maternal Grandmother Lung cancer Maternal Grandmother Relation Name Status Comments Father Alive Maternal Grandfather Maternal Grandmother (Age 62) br east cancer at 45 yrs old Mother Alive Social History Tobacco Use Types Packs/Day Years Used Date Smoking Tobacco: Every Day Cigarettes Vaping/E-cigarettes Smokeless Tobacco: Never Tobacco Cessation:Counseling Given: Yes Alcohol Use Standard Drinks/Week Comments Not Currently 0 (1 standard drink = 0.6 oz pur e alcohol) Childcare Answer Date Recorded Childcare Unknown 04/25/2019 Employment Answer Date Recorded Employment Unknown 04/25/2019 Purpose - Life Answer Date Recorded Purpose and direction in life Unknown Comments Unknown Sex and Gender Information Value Date Recorded Sex Assigned at Not on file Legal Sex Female 11:38 AM EDT Gender Identity Not on file Sexual Orientation Not on file Last Filed Vital Signs Vital Sign Reading Time Taken Comments Blood Pressure 122/78 12/08/2020 1:19 PM EST Pulse - - Temperature 36.5 C (97.7 F) 12/08/2020 1:19 PM EST Respiratory Rate - - Oxygen Saturation - - Inhaled Oxygen Concentration - - Weight 104.3 kg (230 lb) 12/08/2020 1:19 PM EST Height 152.4 cm (5') 12/08/2020 1:19 PM EST Body Mass Index 44.92 12/08/2020 1:19 PM EST Plan of Treatment Health Maintenance Due Date Last Done Comments Depression Screening 2000 Tobacco Screening 2000 Adult BMI Screening 2006 DTaP,Tdap and Td Vaccines (1 - Tdap) 2007 Pap Smear 2009 Influenza Vaccine 07/15/2025 Medical Devices Not on file Insurance ANTH Care Teams [employer] Relationship Specialty Start Date End Date Rich Burnette MD [address] [place] [address] PCP - General Family Medicine 12/08/20
--- OUTSIDE RECORDS SUMMARY | 2025-05-07 19:14 | XMS_ITS | Clinical Summary ---
Author Organization [facility] Address [address] [place] [address] Care Team Providers Care [employer] Supervisor Name Role Phone Unavailable Primary Care Provider Unavailabl e Social History Tobacco Use Types Packs/Day Years Used Date Smoking Tobacco: Never Assessed Comments Unknown Sex and Gender Information Value Date Recorded Sex Assigned at Not on file Legal Sex Female 6:08 PM EST Gender Identity Not on file Sexual Orientation Not on file Plan of Treatment Not on file
--- OUTSIDE RECORDS SUMMARY | 2025-05-07 19:14 | XMS_ITS | Clinical Summary ---
Author Organization [facility] Healthcare Address [address] [place] [address] Care Team Providers Care Tightener Name Role Phone Rich Burnette MD Primary Care Provider [phone] Yesenia Waggoner ZINC SKIMMER Unavailable [phone] Allergies Active Allergy Reactions Criticality Noted Date Comments Amoxicillin-Pot Clavulanate GI intolerance High 11/15 Other 12/01/2023 Enviromental Penicillins GI intolerance High 12/06/2023 Medications cetirizine (ZyrTEC) 10 MG chewable tablet ZyrTEC Acti ve estradiol (Estrace) 1 MG tabletIndicatio ns:Menopause Take 1 tablet (1 mg) by mouth in the morning. Take 1 tablet by mouth daily. 30 tablet 11 Active Additional Information Patient not taking.Reported on 11/01/2024 Active Problems Problem Noted Date Diagnosed Date Fatigue 03/29/2024 H/O: hysterectomy 03/29/2024 Well woman exam with routine gynecological exam 03/29/2024 Family History Medical History Relation Name Comments Hypertension Father Diabetes Maternal Grandfather Breast cancer Maternal Grandmother Colon cancer Maternal Grandmother Relation Name Status Comments Father Alive Maternal Grandfather Maternal Grandmother Mother Alive Son Alive Social History Tobacco Use Types Packs/Day Years Used Date Smoking Tobacco: Never Assessed Tobacco Cessation:Counseling Given: Not Answered Comments:*current smoker, frequency unknown Alcohol Use Standard Drinks/Week Comments Yes 0 (1 standard drink = 0.6 oz pur e alcohol) caffeine: 1-2 cups per day Comments No Sex and Gender Information Value Date Recorded Sex Assigned at Not on file Legal Sex Female 6:48 PM EDT Gender Identity Not on file Sexual Orientation Not on file Last Filed Vital Signs Vital Sign Reading Time Taken Comments Blood Pressure 118/84 11/01/2024 5:11 PM EST Pulse 89 11/01/2024 5:11 PM EST Temperature 36.6 C (97.8 F) 11/01/2024 5:11 PM EST Respiratory Rate - - Oxygen Saturation 98% 11/01/2024 5:11 PM EST Inhaled Oxygen Concentration - - Weight 116 kg (255 lb 12.8 oz) 03/29/2024 10:16 AM EDT Height 152.4 cm (5') 03/29/2024 10:16 AM EDT Body Mass Index 49.96 03/29/2024 10:16 AM EDT Plan of Treatment Health Maintenance Due Date Last Done Comments Influenza Vaccine (Season Ended) 2025 08/24/20, 12/01/2017 Cervical Cancer Screening Discontinued Pap Smear Discontinued 08/18/2022 HPV/Cotest Discontinued Procedures Procedure Name Priority Date/Time Associated Diagnosis Comments PAP SMEAR Routine 08/18/2022 12:00 AM EDT from Last 3 Months or Most Recently Relevant to Health Maintenance Results * Pap Smear (08/18/2022 12:00 AM EDT) Swab Cervical swab / Unknown us Regino Ashleigh DO LAB CYTOLOGY ORDERABLES Final Re sult EXTERNAL LAB from Last 3 Months or Most Recently Relevant to Health Maintenance Insurance [employer] Care Teams Tightener Relationship Specialty Start Date End Date Rich Burnette MD PCP - General Family Medicine 12/06/23 Yesenia Waggoner NP [address] [facility] [address] [place] [address] PCP - [facility] 12/15/24
--- OUTSIDE RECORDS SUMMARY | 2025-05-07 19:14 | XMS_ITS | Encounter Summary ---
Author Organization [facility] Address [address] [facility] [address] [place] [address] Care Team Providers Care Box Sealing Machine Feeder Name Role Phone Rich Burnette MD Primary Care Provider [phone] Yesenia Waggoner [employer] TEACHER Unavailable [phone] Encounter Details Date Type Department Care Team (Late st Contact Info) Description 04/27/2024 Abstract [facility] [address] [place] [address] Ann Jules LPN [address] [place] [id number] Social History Tobacco Use Types Packs/Day Years Used Date Smoking Tobacco: Never Assessed Comments:*current smoker, fr equency unknown Alcohol Use Standard Drinks/Week Comments Yes 0 (1 standard drink = 0.6 oz pur e alcohol) caffeine: 1-2 cups per day Comments No Sex and Gender Information Value Date Recorded Sex Assigned at Not on file Legal Sex Female 6:48 PM EDT Gender Identity Not on file Sexual Orientation Not on file documented as of this encounter Plan of Treatment Not on file documented as of this encounter Visit Diagnoses Not on filedocumented in this encounter Care Teams Box Sealing Machine Feeder Relationship Specialty Start Date End Date Rich Burnette MD PCP - General Family Medicine 12/06/23 Yesenia Waggoner, H[employer]CHO[employer]IC TEACHER [address] [facility] [address] [place], [place] [id number] PCP - [facility] [place] [facility] 12/15/24 documented as of this encounter
--- OUTSIDE RECORDS SUMMARY | 2025-05-07 19:14 | XMS_ITS | Encounter Summary ---
Author Organization [facility] Address [address] [place] [address] Care Team Providers Care Fashion Director Name Role Phone Rich Burnette MD Primary Care Provider [phone] Yesenia Waggoner OCCUPATIONAL THER Unavailable [phone] Encounter Details Date Type Department Care Team (Late st Contact Info) Description 04/21/2024 Clinisync Result Encounter [facility] External Department Unsolicited Autumn Sotelo, DO [address] [facility] [place] [address] Social History Tobacco Use Types Packs/Day Years [...] on file documented as of this encounter Miscellaneous Notes * Result Encounter Note - Ann Jules LPN - 04/21/2024 7:32 AM EDT Sent to PCP. documented in this encounter Plan of Treatment Not on file documented as of this encounter Procedures Procedure Name Priority Date/Time Associated Diagnosis Comments CT ABDOMEN PELVIS W CON 04/21/2024 7:28 AM EDT documented in this encounter Results * CT ABDOMEN PELVIS W CON (04/21/2024 7:28 AM EDT) Anatomical Region Laterality Modality Other 04/21/2024 7:28 AM EDT Narrative 04/21/2024 7:30 [place] [address] CT Scan Report Signed Patient: LIAN FITZGERALD MR#: [id number] : 1990 Acct:[id number] Age/Sex: 33 / F ADM Date: 04/20/24 Loc: CT Attending Dr: Autumn Sotelo D.O. Ordering Physician: Autumn Sotelo D.O. Date of Service: 04/20/24 Procedure(s): CT abdomen pelvis w con Accession Number(s): [id number] cc: Physician,Non-Staff M.DTatyana [place] [address] Patient Name: LIAN FITZGERALD MRN: [id number] date: 1990 Sex: F Assigned Patient Location: CT Current Patient Location: Accession/Order Number: [id number] Exam Date: 04/20/2024 09:15 Report Date: 04/21/2024 07:28 At the request of: AUTUMN SOTELO Procedure: CT abdomen pelvis w con EXAMINATION: CT abdomen pelvis w con HISTORY: Right sided abdominal pain R10.9 ; right groin pain COMPARISON: No relevant comparison available. TECHNIQUE: Axial, Coronal, and Sagittal images were obtained without and/or with IV contrast as indicated by examination type. Dose reduction techniques were achieved by using automated exposure control and/or adjustment of mA and/or kV according to patient size and/or use of iterative reconstruction technique. FINDINGS: LUNG BASES: No visible pulmonary or pleural disease. LIVER: No enlargement, atrophy, suspicious density, or significant focal lesion. BILIARY: No dilatation or calcification. PANCREAS: No lesion, fluid collection, or abnormal duct dilatation. SPLEEN: Enlarged, 13.9 cm. ADRENALS: No mass or enlargement. KIDNEYS: No mass, obstruction, or calcification. BOWEL/MESENTERY: No visible mass, obstruction, or bowel wall thickening. Normal appendix. AORTA/VASCULAR: No aneurysm or dissection. RETROPERITONEUM: No mass or adenopathy. LYMPH NODES: No adenopathy. URINARY BLADDER: No visible focal wall thickening, lesion, or calculus. PELVIC ORGANS: Hysterectomy. Normal appearing ovaries. ABDOMINAL WALL: No mass or hernia. BONES: No bony lesion or fracture. OTHER: Negative. CT/CT abdomen pelvis w con IMPRESSION: 1. Mild splenomegaly; nonspecific. 2. No suspicious findings to account for patient's symptoms. Electronically authenticated by: WILFRID TOMAS Date: 04/21/2024 07:28 Dictated By: Wilfrid Tomas M.D. Signed By: 04/21/24729 DD/ 7 TD/TT: Rotary Machine Operator: Procedure Note Radiology, Radiologist, MD - 04/21/2024 [place] [address] CT Scan Report Signed Patient: LIAN FITZGERALD SMR#: [id number] : 1990Acct:[id number] Age/Sex: 33 / FADM Date: 04/20/24 Loc: CT Attending Dr: Autumn Sotelo D.O. Ordering Physician: Autumn Sotelo D.O. Date of Service: 04/20/24 Procedure(s): CT abdomen pelvis w con Accession Number(s): [id number] cc: Physician,Non-Staff Susie [address] [place] [address] Patient Name: LIAN FITZGERALD MRN: [id number] date: 1990 Sex: F Assigned Patient Location: CT Current Patient Location: Accession/Order Number: [id number] Exam Date: 04/20/2024 09:15 Report Date: 04/21/2024 07:28 At the request of: AUTUMN SOTELO Procedure: CT abdomen pelvis w con EXAMINATION: CT abdomen pelvis w con HISTORY: Right sided abdominal pain R10.9 ; right groin pain COMPARISON: No relevant comparison available. TECHNIQUE: Axial, Coronal, and Sagittal images were obtained withoutand/or with IV contrast as indicated by examination type. Dose reductiontechniques were achieved by using automated exposure control and/or adjustment of mA and/or kV according to patient size and/or use of iterative reconstruction technique. FINDINGS: LUNG BASES: No visible pulmonary or pleural disease. LIVER: No enlargement, atrophy, suspicious density, or significant focal lesion. BILIARY: No dilatation or calcification. PANCREAS: No lesion, fluid collection, or abnormal duct dilatation. SPLEEN: Enlarged, 13.9 cm. ADRENALS: No mass or enlargement. KIDNEYS: No mass, obstruction, or calcification. BOWEL/MESENTERY: No visible mass, obstruction, or bowel wall thickening. Normal appendix. AORTA/VASCULAR: No aneurysm or dissection. RETROPERITONEUM: No mass or adenopathy. LYMPH NODES: No adenopathy. URINARY BLADDER: No visible focal wall thickening, lesion, or calculus. PELVIC ORGANS: Hysterectomy. Normal appearing ovaries. ABDOMINAL WALL: No mass or hernia. BONES: No bony lesion or fracture. OTHER: Negative. CT/CT abdomen pelvis w con IMPRESSION: 1. Mild splenomegaly; nonspecific. 2. No suspicious findings to account for patient's symptoms. Electronically authenticated by: WILFRID TOMAS Date: 04/21/2024 07:28 Dictated By: Wilfrid Tomas M.D. Signed By:04/21/24729 DD/ 7 TD/TT: Rotary Machine Operator: [facility] DO [facility] Final Result documented in this encounter Visit Diagnoses Not on filedocumented in this encounter Care Teams Fashion Director Relationship Specialty Start Date End Date Rich Burnette MD PCP - General Family Medicine 12/06/23 Yesenia Waggoner NP [address] [place] [address] PCP - Te[facility] 12/15/24 documented as of this encounter
[2025-05-07 19:20] VITALS: BP 160/91; PULSE 98; TEMP 36.6; O2SAT 98; BMI 48.8
--- OUTSIDE RECORDS SUMMARY | 2025-05-07 19:34 | XMS_ITS | CCD ---
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 Primary Care Physician [phone] Rich Burnette Admitting Unavailable Rich Burnette Attending Unavailable Ana Hammer Attending Unavailable Ana Hammer Admitting Unavailable Rich Burnette Attending Unavailable Rich Burnette Admitting Unavailable Rich Burnette Attending Unavailable Rich Burnette Attending Unavailable Ana Hammer Attending Unavailable Rich Burnette Attending Unavailable Rich Burnette Attending Unavailable Rihc Burnette Attending Unavailable Rich Burnette Attending Unavailable Rich Burnette Admitting Unavailable Rich Burnette Attending Unavailable AUTUMN SOTELO Attending Unavailable AUTUMN SOTELO Attending Unavailable YESENIA WAGGONER Attending Unavailable Rich Burnette MD Primary Care Provider [phone] LINA ZAPATA Attending Unavailable LINA ZAPATA Attending Unavailable Allergies Allergy Classification Reported Allergen(s) Allergy Type Date of Onset Reaction(s) Facility (4 sources) Amoxicillin / Clavulanate; Translations: [amoxicillin-cl avulanate] Drug Allergy Vomiting (disorder) [facility] [place] (6 sources) Penicillins; Translations: [penicillins] Propensity to adverse reactions to drug 4 Vomiting (disorder), GI intolerance [facility] (2 sources) No Known Medication Allergies; Translations: [No Known Medication Allergies] Propensity to adverse reactions (disorder) [facility] Rep[facility] (2 sources) Amoxicillin-Pot Clavulanate Drug Intolerance 4 GI intolerance [facility] (2 sources) Other Propensity to adverse reactions 4 [facility] Work Phone: Medications Current Medications Medication Drug Class(es) Dates [...] tab(s), Oral, q12hr, 20 tab(s), Refill(s) 0, [facility]/pharmacy #[id number], 157.5, cm, 07/26/23 16:44:00 EDT, Height/Length Dosing, 110.2, kg, 07/26/23 16:44:00 EDT, Weight Dosing Start Date: 07/26/23 Status: Ordered Start: 05-07-2023 take 1 tablet by john th every twelve hours Amoxicillin-Pot Clavulanate 875-125 MG 1 tablet Orally every 12 hrs for 10 day(s) Apr, Active Azithromycin 3 Day Dose Pack 500 mg oral tablet (1 source) Start: 09-30-2023 Azithromycin 3 Day Dose Pack 500 mg oral tablet 500 mg = 1 tab(s), Oral, Daily, # 3 tab(s), Refills(s) 0, Pharmacy: [facility]/pharmacy #[id number], 157.5, cm, 09/30/23 10:09:00 EST, Height/Length Dosing, 111.1, kg, 09/30/23 10:09:00 EST, Weight Dosing Start Date: 09/30/23 Status: Ordered cetirizine hydrochloride 10 mg disintegrating oral tablet (6 sources) Histamine-1 Receptor Antagonist Start: 03-19-2021 Zyrtec Dissolve 10 m g oral tablet, dispersible 10 mg = 1 tab(s), Oral, Daily, PRN for allergy symptoms, # 24 tab(s), Refills(s) 0 Start Date: 03/19/21 Status: Ordered Quantity: 24.0 Unit: tab(s) Repeat number: 1 cetirizine (ZyrT EC) 10 MG chewable tablet ZyrTEC Active doxycycline monohydrate 100 mg oral tablet (2 sources) Tetracycline-class Drug Start: 11-01-2024 End: 11-11-2024 take 1 tablet by mouth once doxycycline (Adoxa) 100 MG tablet Indications: Acute non-recurrent maxillary sinusitis Take 1 tablet (100 mg) by mouth every 12 (twelve) hours for 10 days Take with a full glass of water and do not lie down for at least 30 minutes after, avoid sun exposure 20 tablet 11/01/2024 11/11/2024 Active elppa CoQ10 50 mg oral capsule (1 source) Start: 03-22-2025 take 1 capsule by mouth once daily elppa CoQ10 50 mg oral capsule 50 mg = 1 cap(s), Oral, Daily, # 30 cap(s), Refills(s) 2, Pharmacy: [facility]/pharmacy #[id number], 157.5, cm, 03/22/25 11:48:00 EDT, Height/Length Dosing, 118.7, kg, 03/22/25 11:48:00 EDT, Weight Dosing Start Date: 03/22/25 Status: Ordered Quantity: 30.0 Unit: cap(s) Repeat number: 3 Indication: Headache, unspecified estradiol 1 mg oral tablet (3 sources) Estrogen Start: 12-06-2023 End: 12-05-2024 take 1 tablet by mouth once daily estradiol 1 mg Tab 1 mg = 1 tab(s), Oral, Daily, Refills(s) 0 Start Date: 04/26/24 Status: Ordered Fish Oils (1 source) Start: 03-22-2025 take 1 capsule by mouth twice daily Fish Oil 1000 mg oral capsule 1,000 mg = 1 cap(s), Oral, BID, # 60 cap(s), Refills(s) 0, Pharmacy: [facility]/pharmacy #[id number], 157.5, cm, 03/22/25 11:48:00 EDT, Height/Length Dosing, 118.7, kg, 03/22/25 11:48:00 EDT, Weight Dosing Start Date: 03/22/25 Status: Ordered Quantity: 60.0 Unit: cap(s) Repeat number: 1 Indication: Headache, unspecified fluticasone propionate 0.05 mg/actuat metered dose nasal spray (4 sources) Corticosteroid Start: 05-07-2023 take 2 spray(s) nasal route once daily Fluticasone Propionate 50 MCG/ACT 2 sprays Nasally Once a day for 14 day(s) Apr, Active Start: 05-06-2023 fluticasone Na sheri 0.05 mg/inh Tolar Refill(s) 0, Nasal, 0 Refill(s) Start Date: 05/06/23 Status: Ordered Repeat number: 1 magnesium oxide 400 mg oral tablet (1 source) Start: 03-22-2025 End: 06-20-2025 take 1 tablet by mouth twice daily magnesium oxide 400 mg Tab 400 mg = 1 tab(s), Oral, BID, X 30 day(s), # 60 tab(s), Refills(s) 2, Pharmacy: [facility]/pharmacy #[id number], 157.5, cm, 03/22/25 11:48:00 EDT, Height/Length Dosing, 118.7, kg, 03/22/25 11:48:00 EDT, Weight Dosing Start Date: 03/22/25 Stop Date: 06/20/25 Status: Ordered Quantity: 60.0 Unit: tab(s) Repeat number: 3 Indication: Headache, unspecified predniSONE 20 mg oral tablet (3 sources) Start: 05-07-2023 take 1 tablet by mouth every twelve hours predniSONE 20 MG 1 tablet Orally bid for 5 day(s) Apr, Active Vitamin D3 5000 intl units oral capsule (1 source) Start: 03-22-2025 take 1 capsule by mouth once daily at mealtime Vitamin D3 5000 intl units oral capsule 125 mcg = 1 cap(s), Oral, Daily, with food, # 100 cap(s), Refills(s) 0, Pharmacy: [facility]/pharmacy #[id number], 157.5, cm, 03/22/25 11:48:00 EDT, Height/Length Dosing, 118.7, kg, 03/22/25 11:48:00 EDT, Weight Dosing Start Date: 03/22/25 Status: Ordered Quantity: 100.0 Unit: cap(s) Repeat number: 1 Indication: Headache, unspecified Problems Active Problems Problem Classification Problem Date Documented Da te Episodic/Chronic Abdominal pain (4 sources) Pain in pelvis 03-19-2021 Episodic Asthma (4 sources) Asthma 03-19-2021 Chronic Esophageal disorders (4 sources) Gastroesophageal reflux disease without esophagitis 03-19-2021 Chronic Genitourinary symptoms and ill-defined conditions (2 sources) Urinary symptoms 03-19-2021 Episodic Headache; including migraine (5 sources) Frequent headache; Translations: [Headache] Onset: 5 03-19-2021 Episodic Lymphadenitis (2 sources) Lymphadenitis 07-26-2023 Episodic Nonmalignant breast conditions (4 sources) Breast lump 03-19-2021 Episodic Other female genital disorders (4 sources) Other specified conditions associated with female genital organs and menstrual cycle; Translations: [OTH SPEC COND FE GEN ORG MENST CYCL] Onset: 3 Episodic Other female genital disorders (4 sources) Dysplasia of cervix 03-19-2021 Episodic Other gastrointestinal disorders (2 sources) Splenomegaly 04-26-2024 Episodic Other nutritional; endocrine; and metabolic disorders (1 source) Body mass index 40+ - severely obese; Translations: [Body mass index (BMI) 45.0-49.9, adult] Onset: 4 Chronic Other upper respiratory disease (2 sources) Nasal sinus problem 09-30-2023 Episodic Other upper respiratory infections (3 sources) Acute sinusitis, unspecified; Translations: [Acute maxillary sinusitis] Episodic Ovarian cyst (1 source) Other ovarian cyst, left side; Translations: [OTHER OVARIAN CYST LEFT SIDE] Onset: 3 Episodic Substance-related disorders (4 sources) Smoker 03-19-2021 Chronic Comment on above: Added secondary to d ocumentation in Social History. Unclassified (4 sources) Patient encounter status 07-26-2023 Past or Other Problems Problem Classification Problem Date Documented Date Episodic/Chronic Immunizations and screening for infectious disease (1 source) Encounter for screening for human papillomavirus (HPV); Translations: [ENC SCREENING HUMAN PAPILLOMAVIRUS] Onset: 08-20-2022 Episodic Malaise and fatigue (2 sources) Fatigue; Translations: [Other fatigue] Onset: 03-29-2024 03-29-2024 Episodic Other endocrine disorders (1 source) Endocrine disorder, unspecified; Translations: [ENDOCRINE DISORDER UNSPECIFIED] Onset: 08-20-2022 Episodic Other screening for suspected conditions (not mental disorders or infectious disease) (4 sources) Encounter for screening for malignant neoplasm of cervix; Translations: [ENC SCREENING MALIG NEOPLASM CERV] Onset: 08-18-2022 Episodic Results Test Name Value Interpretation Reference Range Facility Ambulatory Visit Summaryon 0 03-22-2025 Ambulatory Visit Summary Ambulatory Visit Summary RIVER FITZGERALD :1990 Visit Date:03/22/2025 Ambulatory Visit Instructions Your Diagnosis Pressure in head Your Care Team Attending Physician - LINA ZAPATA CNP Primary Care Physician - Rich Burnette MD This Is Your Medications List cetirizine (Zyrtec Dissolve 10 mg oral tablet, dispersible) cholecalciferol (Vitamin D3 5000 intl units oral capsule) fluticasone nasal (fluticasone Nasal 0.05 mg/inh Tolar) magnesium oxide (magnesium oxide 400 mg Tab) omega-3 polyunsaturated fatty acids (Fish Oil 1000 mg oral capsule) ubiquinone (elppa CoQ10 50 mg oral capsule) Procedures Performed Adenoidectomy, delivery, Excision of right breast lump, Hysterectomy, LEEP (Loop electrosurgical excision procedure) of cervix, Tonsillectomy. Discharge Vitals Temperature (Oral) 36.4 ???C Heart Rate (Peripheral) 78 Respiratory Rate 20 Blood Pressure 132/84 Height 157.5 cm Height 62 in Weight 118.7 kg Weight 261.688 lb BMI 47.85 What to do next Scheduled Follow-Up Appointments Tuesday. 2024 4:00 PM EDT With: LINA ZAPATA CNP Where: [place] [phone] You Need to Schedule the Following Appointments Follow Up with LINA ZAPATA CNP, FAM When: Within 2 to 4 weeks Comments: Headaches & dermatology referral Where: [address] [place] [phone] Business (1) Medications What How Much When Why Instructions New cholecalciferol (Vitamin D3 5000 intl units oral capsule) 1 Capsules By Mouth Every day Pressure in head with food Pickup at [facility]/pharmacy #[id number] New fluticasone nasal (fluticasone Nasal 0.05 mg/ inh Tolar) Nasal, 0 Refill(s) New magnesium oxide (magnesium oxide 400 mg Tab) 1 Tablets By Mouth 2 times a day Pressure in head Duration: 30 Days Refills: 2 Pickup at [facility]/pharmacy #[id number] New omega-3 polyunsaturated fatty acids (Fish Oil 1000 mg oral capsule) 1 Capsules By Mouth 2 times a day Pressure in head Pickup at [facility]/pharmacy #[id number] New ubiquinone (elppa CoQ10 50 mg oral capsule) 1 Capsules By Mouth Every day Pressure in head Refills: 2 Pickup at [facility]/pharmacy #[id number] Unchanged cetirizine (Zyrtec Dissolve 10 mg oral tablet, dispersible) 1 Tablets By Mouth Every day as needed for for allergy symptoms Pharmacy Information [facility]/pharmacy #[id number]: [address], [place] [phone] Allergies Augmentin (Vomiting) penicillins (Vomiting) Problems Ongoing - Any problem that you are currently receiving treatment for. Asthma Breast lump in female Cervical dysplasia Frequent headaches GERD without esophagitis Morbid obesity with BMI of 45.0-49.9, adult Pelvic pain Physical exam Sinus pressure Smoker Splenomegaly Patient Survey You may receive a survey via text or e-mail asking about your office visit. Please share your experience with us by completing your survey. We appreciate your feedback and thank you for choosing us for your care. Education Materials Migraine Headache A migraine headache is a very strong throbbing pain on one or both sides of your head. This type of headache can also cause other symptoms. It can last from 4 hours to 3 days. Talk with your doctor about what things may bring on (trigger) this condition. What are the causes? The exact cause of a migraine is not known. This condition may be brought on or caused by: ??? Smoking. ??? Medicines, such as: ? Medicine used to treat chest pain (nitroglycerin). ? control pills. ? Estrogen. ? Some blood pressure medicines. ??? Certain substances in some foods or drinks. ??? Foods and drinks, such as: ? Cheese. ? Chocolate. ? Alcohol. ? Caffeine. ??? Doing physical activity that is very hard. Other things that may trigger a migraine headache include: ??? Periods. ??? . ??? Hunger. ??? Stress. ??? Getting too much or too little sleep. ??? Weather changes. ??? Feeling tired (fatigue). What increases the risk? Being 25???55 years old. ??? Being female. ??? Having a family history of migraine headaches. ??? Being . ??? Having a mental health condition, such as being sad (depressed) or feeling worried or nervous (anxious). ??? Being very overweight (obese). What are the signs or symptoms? A throbbing pain. This pain may: ? Happen in any area of the head, such as on one or both sides. ? Make it hard to do daily activities. ? Get worse with physical activity. ? Get worse around bright lights, loud noises, or smells. ??? Other symptoms may include: ? Feeling like you may vomit (nauseous). ? Vomiting. ? Dizziness. ??? Before a migraine headache starts, you may get warning signs (an aura). An aura may include: ? Seeing flashin (more content not included)... Normal [facility] Family Medicine Office/Clini c Noteon 03-22-2025 Family Medicine Office/Clinic Note Family Medicine Office/Clinic Note Chief Complaint The patient presents with chronic headaches and migraines occurring three to five times per week. HPI Staff River is a 34 year old female presenting with lightheaded and head pressure Onset: started Tuesday dizzy and lightheaded and pains behind her right eye. and she gets palpitations Tried Advil- did help at the time Eye exam Every year 5 headaches on a weekly basis I have reviewed and verified the staff HPI to be accurate for this encounter. History of Present Illness 34 [address] patient of Dr. Burnette presents for an acute visit for evaluation of head pressure and lightheadedness that started many years ago. She experiences approximately three to five migraines and/or headaches per week, which she reports having been a persistent issue throughout her life. The headaches present as both general head pressure and specific migraine symptoms, sometimes accompanied by palpitations affecting her entire head and body. The patient notes light-headedness and instability accompanying her headaches recently, raising her level of concern. She describes the severity of the migraines as significant, often requiring the intake of four ibuprofen for relief, which successfully alleviates the headaches for the most part at the time of occurrence. However, she emphasizes her reluctance to rely on medications daily, indicating her preference to avoid prescriptions. Another factor affecting her condition is allergies, for which she takes Zyrtec daily due to hives, though she occasionally forgets morning doses and compensates by evening. Fluid retention and concerns about potential allergy exacerbations have been observed. She describes previous attempts to address the headaches by eliminating caffeine from her diet, which resulted in increased headache severity during withdrawal phases. Her hydration level is suboptimal, estimating around two bottles of water per day but acknowledges that increased water intake can potentially mitigate headaches. The patient???s history includes sinus infections, and she notes the occurrence of fluid behind the ear. Additionally, she expressed anxiety about tightness in her chest during migraines, which she wonders might relate to the headaches. Review of Systems PHQ Score Initial Depression Screen Score: 0 SCORE - Head: Reports chronic headaches and migraines with associated pressure. - Cardiovascular: Reports occasional palpitations during migraines. - Neurological: Reports dizziness and light-headedness accompanying headaches. - Allergies/Immunology : Reports use of Zyrtec daily for hives; occasionally misses doses. - ENT: Reports sinus infections; fluid behind the ear was found. - Musculoskeletal: Denies associated pain. Physical Exam Vitals & Measurements T: 36.4 ???C(Oral) HR: 78(Peripheral) RR: 20 BP: 132/84 SpO2: 100% HT: 62 in HT: 157.5 cm WT: 261.688 lb WT: 118.7 kg BMI: 47.85 General: alert, no acute distress ENMT: TM's clear, oral mucosa moist, no pharyngeal erythema or exudate Cardiovascular: regular rate and rhythm, normal peripheral perfusion Respiratory: Lungs CTA, respirations non labored Extremities: no deformity, no trauma Neurological: oriented x 4, LOC appropriate for age, CN II-XII intact, motor strength equal & normal bilaterally, sensation equal & normal bilaterally, speech normal Assessment/Plan 1. Pressure in head (R51.9: Headache, unspecified) - Focus on the patient's headache management, emphasizing current medication intake practices. - Address hydration and encourage water intake as a potential symptom mitigation strategy. - Monitor antihistamine effectiveness and consider modification during allergy peaks. - Explore anxiety management options and evaluate any relationship between stress and headache exacerbation. - Continue exploring lifestyle and dietary adjustments to further alleviate symptom frequency and severity. Ordered: cholecalciferol, 125 mcg = 1 cap(s), Oral, Daily, with food, # 100 cap(s), Refills(s) 0, Pharmacy: [facility]/pharmacy #[id number], 157.5, cm, 03/22/25 11:48:00 EDT, Height/Length Dosing, 118.7, kg, 03/22/25 11:48:00 EDT, Weight Dosing magnesium oxide, 400 mg = 1 tab(s), Oral, BID, X 30 day(s), # 60 tab(s), Refills(s) 2, Pharmacy: [facility]/pharmacy #[id number], 157.5, cm, 03/22/25 11:48:00 EDT, Height/Length Dosing, 118.7, kg, 03/22/25 11:48:00 EDT, Weight Dosing omega-3 polyunsaturated fatty acids, 1,000 mg = 1 cap(s), Oral, BID, # 60 cap(s), Refills(s) 0, Pharmacy: [facility]/pharmacy #[id number], 157.5, cm, 03/22/25 11:48:00 EDT, Height/Length Dosing, 118.7, kg, 03/22/25 11:48:00 EDT, Weight Dosing ubiquinone, 50 mg = 1 cap(s), Oral, Daily, # 30 cap(s), Refills(s) 2, Pharmacy: [facility]/pharmacy #[id number], 157.5, cm, 03/22/25 11:48:00 EDT, Height/Length Dosing, 118.7, kg, 03/22/25 11:48:00 EDT, Weight Dosing Follow-up With When Contact Information LINA ZAPATA CNP, FAM Within 2 to [address] [place] [phone] (more content not included)... Normal [facility] Comment on above: Result Comment: Elec tronically Signed By: LINA ZAPATA CNP\yaquelin\Date and Time Signed: 03/22/25 12:20 EDT Coding Summary.on 05-05-2024 Coding Summary. XIATXjio63LKy9zLq+PG hlYWQ+ZZ3NJWOxS27stX HrzF6tD7QNCOpZGtuaYG GOCTzRGjSntuImRK0ueM NjZXJu IC8+CC6bCTGbWoqsmOPf l2I1mHP2Z52mfq1vRUvq mWZ2GOZsEzRgixdee0rz qBb6VXgdEbwwQdQs TCZxyN31YRB4eW61Fl35 eUSrdMEwx1rljTy4ViTd PQDzWMW1vMwjAEscc0Wn DCPyA49htAQcs9B4 IGNvbGxhcHNlOyBlbXB0 hE4iRVoomnbbj8jmxfsm Cfb0lz52lHTsw4N6rVQ2 D4PfroJ1FFEqxUXb RkpwkDDVcG3ihzldx7je ysmaEiKpXPFxBBp4XSm0 LBUreVteFeJoDW22UBP3 WKWeskHfK6KfBYMr tHzpYmK0o8I6Dg0SE9KN GyjiP8OFHMLDHWvbrTT+ AV19ok00G0CyKntcRcj3 PHRrXZN6gQE3hH2g ETEqOLfis2I8oCA7M2Me qkCgra7ar6nvIJEjHZya M34anUAip0Y7JSBzrFA5 PVRehZiaEfGjxU95 Oyc+ZSOlaHkbz5AuMcnc c0kke9yrtVw7AogqPQXn ufGacRklJNO2j4FnVu1d BKVqwSM4tCC1qV6x JySvSkL9SFzcS855DvUk qPMhRyzhZ82eF4ZxjIO+ VRJyJaz0BLYszVndBQ2i Z7BpRSLgawdtwKNy kWzuVS1uYDCgrdgeTBGf oK2vWNWeS9q3EbInDwN7 SDxdJ0VaEMMvlzmvJd73 mH2aWmLvCzW5IXga F6WyyoG8IVTgyUWlJGie FAN6G67ov4W4REHpQLBm TGP0cPH3hX5axDboabnc bGVmdDsgdmVydGlj RXxbFToqX509YEMkqWzh PkNvZGluZyBEYXRlOiAg MDYvMjIvMjAyNDwvdGQ+ XUZeXKV9sSvfCDVa bGSxUWngSn2acAixdFqd MV6gDXXmtzyrQSBkuF4j TBMowKGpdHwvQD1oCJNy gdzoc885MtJuCQJ8 NYSmwZMmU4UcnD0qUwQf CGHtPHNoH8MrsELvEWkx C208GHdkZuM5MEDqrdAk O5OuJTXokQxxKaA0 l2Z6Nq5Gi5VgfsbzI3Bi dVKsSeMxNenrEKl6U9Rh PjwvdHI+OH70IILyIN64 EPn2PAM4oYamAZnr XDZdN5UsiE9aNcUvUYCe ZGRkOyc+PHRhYmxlIHdp ZHRoPScxMDAlJyBzdHls QJ3xHy7gZWNqRFLz vRkirPXxRjPkn5cmTWBu CRdrEX7fgTchM9LsfTH5 PRTng1r3Cm15I86gZ3Vj dXA+LEOxbEP1aTJ7 sT6gHwMgXxW4QYymB437 TbRjiCGlYwinc6cxz4mf cFl5PzA0PLTbqbAhjUsp YUS7x1RdLs25J16t IHdpZHRoPSIxNSUiIHZh xNkjsu5atP6iSq9+PGNv xJK7uXD3pJ2tCiSsBbZ8 LQnkF861VlNmoQBq Wjexr5gmj5hirAy5XmIv EOAocxSfrMvyUTE8v2Yc Lh04Y8XoeWfxf7XiVnf6 zp10fPBnc6O5kET8 H2CcEULiuutusJGqiZez YN7bJHEwxumpWWMekV5f EMUhC9b8UqNzOiR2KBuc W3NyxtK9YPDciSEr NKPtvXSTnB7fxynah7rt mjbhVcDiATNcDEh8ODa3 ZOHwkCivReToHEN6VrT3 JYK6zMUslC0rsWxo fketpT0jObv+HGM8xFWk lRMFQZ2jFefrqFJ+PHRk UMY7tNmpTIsrZGModP6m GFWxN6y8CzHnQxS8 OQnqH1AbnnM0OYJyxSAg DUMuxWSIiZ5svpaww7lf xxucJhCuWZWzDFb7JJw9 LWFsaWduOiBsZWZ0 ZkB8ZFZ9yTQrcZ1daOnw iilauO8fJlj+QmlydGgg SVT0ZHh8S0HcSgw3RDMb rNbgLM2nxKJqMIzb Vz1heNrjwDfkZI9eZJOo szxaz339YnNpd7qwPVLp zFZoPXhxFUV1A50zm6N3 LBSfDRUyLPK3dIF1 iR6xwEfhqybfqWNnvHuz piYtdLcoKOgyKIcjS610 CEBruVhhTcPzXSf6X9Nr Wzd9HHUkvLcjEL2u iFYqEAiuQd6pnGopyBee BK9gYJMjgwjld337LrXw z8shKFZhvZJjGZznDIU5 Y42fc4W1TTVaDXAk ABX1fPB4bM2vbXuxvmtr bGVmdDsgdmVydGljYWwt ZJnaS368IKFbbIetBsPr jOp1N1MmLsc5EOUu uPqdRD7nhLFsSQgsRv4u wHrshRywPA0lEOGsiecm l280QwFln4xnAQBzzCMg HPnsIMI8X45gj9Z3 WQXtDQGjQSH4qRT8mU6j bGlnbjogbGVmdDsgdmVy xNeuXOvqOTxvW466SZXo cDsnPlBhdGllbnQg LWbmRVx9Y3VkOpixtGZ+ DW66JNYzAH15xDPxtVVt b9nkwSq5MsIoGPFnLNG1 nQzxVGecy6ErLLKa U47eeXGhh1L4HJIlcLsx oBExLbConLH2rQ8rCNny vxkpe3vafajxRwmqe0de py39aK37R56sEUlf ZHRoPSIzMCUiIHZhbGln ln5uhD8iEy1+PGNvbCB3 yZH2xE7ePCIfHyM6VQgk G093FhZdsQBeQbod r9dfb0fpvYq6DoU6PIXr pxVspRxwQGK7r6YhHv98 F57rYLjcGUBfHPZvPKRh VLJknGwmko5kxO5p Ii8+FBDzqWG3jXM6oB3t PhTfQgT6KGvfC037NuXj qKYnYfhyW02jY2HfwPR+ JNNqItq6BEZmvSyv EZ2dqLAjXKvaGy1uBDK2 EvAvTnQpWGhaW5AqNMBm lzjzcjorhIN4OPQvERCc jB33Ah8kuCejGKLr rVMTsZ9mzjxle8qzyost ZeDbUTWeKFi2NXe8YTKy iDkaIzEyAKD3PrL7TRC9 fOJsuW9joFnbgrhn yN8oC1AvAWYmunstSh83 nD6sGeEyVuA2MNjiBaj+ QOKQKlyrD2HILXsEHDOS SN73DU17qONig2Z0 dUR0T0QvPMGnwglecqlu aSM3CZOiBRAtyH56fLCr JIufNp1yv6E5n507MIAu RIYejK54Gg6myYkk HFVddQBIpV8qxktet7ct skiwFhRrNNNeXJk3OXu1 QSYkkXofSoHpKZZ1VoE1 DUK8kGJztL4nrTmn iyekpK3cKzw+MDkvMDcv EHh2VHxtqAU+PHRkIHN0 fUwbBHhaSNKfvB3lLYTh K8z1UfJmCzL8SDkt A1ShBEKtskptDk01zN1y RdDxZlX8TGdsC5IszfU2 XJZrlGMoBHdlDXA7Q13s j6M1FYXgLDUtWLD4 mEE3uQ5goRbdltwjsEWo dDsgdmVydGljYWwtYWxp X199FHCswLgwFbQ5HChh PYTnVZ82AL71pXEg n4C0rMI1L5XhUUQdazuf owvwiZA7UAKqQAPdeN81 wTQwXSsfLm6ab7E5h555 NXNiSJYzvG96Kn2g eDgoYAHlhAINtO5qobtq f7cpjbbkTgEiWZPmZUx4 QAe0UTKmhLeaUtMhRDM3 NbD2KIU4lWJgmI7u iJahefqvoB7aNmt+RmVt RMfrDO25ND71mMNsy1T7 wBZ7J6VbKXLnjkjgurxg nER3IKFcDNItbY16 sSInLXztBn4lq5M6l024 XKXsKYTmyN62Ai9uiNtz OHBwyGWEsY6vbkadp7ly cjogIzAwMDAwMDt0 NOo0LRTtiEcvIuSmGOD0 UgY9ZWQ7rHLtcT2ftRls pyljeW5rMsk+F8Z8gWA3 aWVudDwvdGQ+PC90 jw94H6ZuKdnbVmd7MCBn VUP6cIV9sG1pILNrOVrl w5V1uFP8B0EhzsBcyn4r l0yqUWHxCHvkV77i vLThx9X1GKSyvCY9KLXs wYpmJqJncU17Uge+PGNv oYxik3BiEhwuh7pll4on rGx8BhDsROKifiRa tJnvNVS2y1IsAc38G73v IHdpZHRoPSIzMCUiIHZh bSwvgs2njD2cOc0+PGNv wTW9bLX2lN9xZtTk KfT3EZmnF242VjPmfSLg Nwiex2pfg1oawIa7TlSu KQNxhgJkiRvsJRS0q3Qh Pe05V4EtpXrcg9Ei Uwy9kh69qYIvn8K5tOW0 G5JvCACdtgjhlDPraJah AR2fVZRequqoOXIoyA6s CSImD3p6UiGfOaM7 CSmsU1WsnxE2GOIlqUPl VDGdjLLDzM7semorr8cs ybygIdRbKQGmMOo3GDd9 LWFsaWduOiBsZWZ0 NuG9HVI0vHLqlK3adSnr fpzrnJ6jLbd+ULf0j8fs aYIdUG1awMR6OQ38XH03 vEBei9W5nNU7E1Rz QYZdxdjurhwdfQR6YCFi SYZmvI47Co4zmGqjUd1o BRWmSLK2UWDbsVIsL6Lb nJ2sNfJdSRFtXCVg W7BdrCPeCZteG865MKjw KrI3GSMfwaXrN6IuYYJv kTzxGiP3h2S1Oi3BCO77 FV61DH07gKOyz8A6 bFB6L6IuXZIvwjyleiiz bOL7MMWbYNBlqP98Ef0j mUxvFp6lEBYaLMN8FKVy yLNmO2PneJ8sHgIz UHRmCWAoN7MqrXPoYAtl F831CLqnOtS5UJSmeoBh Z5NtILKmhRhxMhZ0q7K3 Px4WFb86YI20HM83 mDRkn7U8aQF3C2IbTJGf coxxnchrrMU1KRWoHJBm jD61Zb6orZquTm6aKYQs VCB1QCJdkQBoJ7Dg gY4yGuTwEXAjXZPyY3Et xSLhAEqxK774DSyuWiI5 SMVqvmOdG2AoTARrxZxj ApW2o6O5Sz3ZHIyj ufy9Z7GtZiqrzXQ+PC90 PRBeFC78xYRhdJSvn8gj iZw1LtDjYDDmOOZ1mUns [id number] (more content not included)... Normal [facility] Lab Miscellaneous-LCon 05-01 Lab Miscellaneous path rev ordere Invalid Interpretation Code [facility] Comment on above: Performed By: #### 1 [id number] #### [facility] Laboratory [address] [place] [address] RAD - CT Reporton 05-01-2024 RAD - CT Report [id number] #1.00TIFF Normal [facility] CBC w/ Auto Diffon 4 Basophils/100 WBC (Bld) 0.5 % Normal 0.0-2.0 [facility] Comment on above: Performed By: #### 2 [id number] #### [facility] Laboratory [address] [place] [address] Basophils/Leukocytes Auto (Bld) [Pure # fraction] 0.0 E9/L Normal 0.0-0.2 [facility] Comment on above: Performed By: #### 2 [id number] #### [facility] Laboratory [address] [place] [address] Eosinophils (Bld) [#/Vol] 0.1 E9/L Normal 0.0-0.5 [facility] Comment on above: Performed By: #### 2 [id number] #### [facility] Laboratory [address] [place] [address] Eosinophils/100 WBC (Bld) 2.0 % Normal 0.0-8.0 [facility] Comment on above: Performed By: #### 2 [id number] #### [facility] [address] [place] [address] Erythrocyte distribution width (RBC) [Ratio] 13.5 % Normal 10.9-14.2 [facility] Comment on above: Performed By: #### 2 [id number] #### [facility] Laboratory [address] [place] [address] Hematocrit (Bld) [Volume fraction] 39.0 % Normal 34.0-46.0 [facility] Comment on above: Performed By: #### 2 [id number] #### [facility] Laboratory [address] [place] [address] Hemoglobin (Bld) [Mass/Vol] 13.1 g/dL Normal 12.0-16.0 [facility] Comment on above: Performed By: #### 2 [id number] #### [facility] [address] [place] [address] Lymphocytes (Bld) [#/Vol] 1.8 E9/L Normal 1.0-4.0 [facility] Comment on above: Performed By: #### 2 669706 #### [facility] Laboratory [address] [place] [address] Lymphocytes/100 WBC (Bld) 26.0 % Normal 14.0-50.0 [facility] Comment on above: Performed By: #### 2 780715 #### [facility] Laboratory [address] [place] [address] MCH (RBC) [Entitic mass] 29.2 pg Normal 27.0-34.0 [facility] Comment on above: Performed By: #### 2 [id number] #### [facility] Laboratory [address] [place] [address] MCHC (RBC) [Mass/Vol] 33.6 g/dL Normal 31.4-36.0 [facility] Comment on above: Performed By: #### 2 [id number] #### [facility] [address] [place] [address] MCV (RBC) [Entitic vol] 87.0 fL Normal 80.0-100.0 [facility] Comment on above: Performed By: #### 2 539481 #### [facility] Laboratory [address] [place] [address] Monocytes (Bld) [#/Vol] 0.3 E9/L Normal 0.2-1.0 [facility] Comment on above: Performed By: #### 2 174831 #### [facility] Laboratory [address] [place] [address] Neutrophils (Bld) [#/Vol] 4.5 E9/L Normal 2.0-7.5 [facility] Comment on above: Performed By: #### 2 [id number] #### [facility] Laboratory [address] [place] [address] Neutrophils/100 WBC (Bld) 66.4 % Normal 36.0-75.0 [facility] Comment on above: Performed By: #### 2 807496 #### [facility] Laboratory [address] [place] [address] Platelet mean volume (Bld) [Entitic vol] 8.3 fL Normal 6.4-10.8 [facility] Comment on above: Performed By: #### 2 746751 #### [facility] Laboratory [address] [place] [address] Platelets (Bld) [#/Vol] 247.0 E9/L Normal 150.0-500.0 [facility] Comment on above: Performed By: #### 2 701013 #### [facility] Laboratory [address] [place] [address] RBC (Bld) [#/Vol] 4.5 E12/L Normal 4.3-5.9 [facility] Comment on above: Performed By: #### 2 483093 #### [facility] [address] [place] [address] WBC corrected for nucl RBC Auto (Bld) [#/Vol] 6.7 E9/L Normal 4.0-11.0 [facility] Comment on above: Performed By: #### 2 [id number] #### [facility] [address] [place] [address] CHEMISTRYOrdered By: SYSTEM SYSTEM on 04-27-2024 Albumin [Mass/Vol] 4.1 g/dL Normal 3.3 - 5.0 gm/dL [facility] Albumin/Globulin [Mass ratio] 1.5 {ratio} Normal 1.1 - 2.2 [facility] ALP [Catalytic activity/Vol] 56 [iU]/d Normal 21 - 98 Int._Unit/L [facility] ALT No additional P-5'-P [Catalytic activity/Vol] 20 [iU]/d Normal 6 - 46 Int._Unit/L [facility] Anion gap [Moles/Vol] 11 mmol/L Normal 6 - 16 mEq/L R [facility] AST [Catalytic activity/Vol] 16 [iU]/d Normal 5 - 43 Int._Unit/L [facility] Bilirubin [Mass/Vol] 0.3 mg/dL Normal 0.0 - 1 .1 mg/dL [facility] Calcium [Mass/Vol] 9.1 mg/dL Normal 8.9 - 11. 1 mg/dL [facility] Chloride [Moles/Vol] 105 mmol/L Normal 101 - 1 11 mmol/L [facility] Cholesterol [Mass/Vol] 162 mg/dL Normal 120 - 200 mg/dL [facility] Cholesterol in HDL [Mass/Vol] 49 mg/dL Invalid Interpretation Code [facility] Comment on above: Result Comment: '>= 60 LOW RISK' '<= 40 HIGH RISK' Cholesterol in LDL [Mass/Vol] 90 mg/dL Normal <=129mg/dL [facility] Cholesterol in VLDL [Mass/Vol] 22 mg/dL Normal 7 - 40 mg/dL [facility] CO2 [Moles/Vol] 26 mmol/L Normal 21 - 31 mmol/L [facility] Creatinine [Mass/Vol] 0.7 mg/dL Normal 0.5 - 1.3 mg/dL [facility] eGFR 115 mL/min/1.73 m2 Normal >=59mL/mi n/1. 73 m2 [facility] Globulin (S) [Mass/Vol] 2.8 g/dL Normal 1.4 - 4.0 gm/dL [facility] Glucose [Mass/Vol] 104 mg/dL Normal 55 - 199 mg/dL [facility] Potassium [Moles/Vol] 4.2 mmol/L Normal 3.5 - 5.3 mmol/L [facility] Protein [Mass/Vol] 6.9 g/dL Normal 6.0 - 7.8 gm/dL [facility] Sodium [Moles/Vol] 138 mmol/L Normal 135 - 145 mmol/L [facility] Triglyceride [Mass/Vol] 108 mg/dL Normal <=149mg/dL [facility] Urea nitrogen [Mass/Vol] 20 mg/dL Normal 5 - 21 mg/dL [facility] Urea nitrogen/Creatinine [Mass ratio] 29 mg/mg High 10 - 20 [facility] CMPon 04-27-2024 Albumin [Mass/Vol] 4.1 g/dL Normal 3.3-5.0 [facility] Comment on above: Performed By: #### 2 [id number] #### [facility] [address] [place] [address] Albumin/Globulin (S) [Mass conc ratio] 1.5 Normal 1.1-2.2 [facility] Comment on above: Performed By: #### 2 252916 #### [facility] [address] [place] [address] ALP [Catalytic activity/Vol] 56 Int._Unit/L Normal 21-98 [facility] Comment on above: Performed By: #### 2 [id number] #### [facility] [address] [place] [address] ALT No additional P-5'-P [Catalytic activity/Vol] 20 Int._Unit/L Normal 6-46 [facility] Comment on above: Performed By: #### 2 410309 #### [facility] [address] [place] [address] Anion gap [Moles/Vol] 11 mmol/L Normal 6-16 [facility] Comment on above: Performed By: #### 2 709004 #### [facility] [address] [place] [address] AST [Catalytic activity/Vol] 16 Int._Unit/L Normal 5-43 [facility] Comment on above: Performed By: #### 2 245735 #### [facility] [address] [place] [address] Bilirubin [Mass/Vol] 0.3 mg/dL Normal 0.0-1.1 [facility] Comment on above: Performed By: #### 2 616085 #### [facility] [address] [place] [address] Calcium [Mass/Vol] 9.1 mg/dL Normal 8.9-11.1 [facility] Comment on above: Performed By: #### 2 019138 #### [facility] [address] [place] [address] Chloride [Moles/Vol] 105 mmol/L Normal 101-111 [facility] Comment on above: Performed By: #### 2 598331 #### [facility] [address] [place] [address] CO2 [Moles/Vol] 26 mmol/L Normal 21-31 [facility] Comment on above: Performed By: #### 2 [id number] #### [facility] [address] [place] [address] Creatinine [Mass/Vol] 0.7 mg/dL Normal 0.5-1.3 [facility] Comment on above: Performed By: #### 2 033160 #### [facility] [address] [place] [address] Globulin (S) [Mass/Vol] 2.8 g/dL Normal 1.4-4.0 [facility] Comment on above: Performed By: #### 2 961788 #### [facility] [address] [place] [address] Glucose [Mass/Vol] 104 mg/dL Normal 55-199 [facility] Comment on above: Performed By: #### 2 283579 #### [facility] [address] [place] [address] Potassium [Moles/Vol] 4.2 mmol/L Normal 3.5-5.3 [facility] Comment on above: Performed By: #### 2 352626 #### [facility] [address] [place] [address] Protein [Mass/Vol] 6.9 g/dL Normal 6.0-7.8 [facility] Comment on above: Performed By: #### 2 361582 #### [facility] [address] [place] [address] Sodium [Moles/Vol] 138 mmol/L Normal 135-145 [facility] Comment on above: Performed By: #### 2 778513 #### [facility] [address] [place] [address] Urea nitrogen [Mass/Vol] 20 mg/dL Normal 5-21 [facility] Comment on above: Performed By: #### 2 679318 #### [facility] [address] [place] [address] Urea nitrogen/Creatinine [Mass ratio] 29 No Units High 10-20 [facility] Comment on above: Performed By: #### 2 992113 #### [facility] [address] [place] [address] Consent for Treatmenton 04-14 Consent for Treatment [id number] #1.00TIFF Normal [facility] HEMATOLOGYOrdered By: SYSTEM SYSTEM on 04-27-2024 Basophils/100 WBC (Bld) 0.5 % Normal 0.0 - 2.0 % [facility] Basophils/Leukocytes Auto (Bld) [Pure # fraction] 0.0 E9/L Normal 0.0 - 0.2 E9/L [facility] Eosinophils (Bld) [#/Vol] 0.1 E9/L Normal 0.0 - 0.5 E9/L [facility] Eosinophils/100 WBC (Bld) 2.0 % Normal 0.0 - 8.0 % [facility] Erythrocyte distribution width (RBC) [Ratio] 13.5 % Normal 10.9 - 14.2 % [facility] Hematocrit (Bld) [Volume fraction] 39.0 % Normal 34.0 - 46.0 % [facility] Hemoglobin (Bld) [Mass/Vol] 13.1 g/dL Normal 12.0 - 16.0 gm/dL [facility] Lymphocytes (Bld) [#/Vol] 1.8 E9/L Normal 1.0 - 4.0 E9/L [facility] Lymphocytes/100 WBC (Bld) 26.0 % Normal 14.0 - 50.0 % [facility] MCH (RBC) [Entitic mass] 29.2 pg Normal 27.0 - 34.0 pg [facility] MCHC (RBC) [Mass/Vol] 33.6 g/dL Normal 31.4 - 36.0 gm/dL [facility] MCV (RBC) [Entitic vol] 87.0 fL Normal 80.0 - 100.0 fL [facility] Monocytes (Bld) [#/Vol] 0.3 E9/L Normal 0.2 - 1.0 E9/L [facility] Monocytes/100 WBC (Bld) 5.1 % Normal 4.0 - 14.0 % [facility] Neutrophils (Bld) [#/Vol] 4.5 E9/L Normal 2.0 - 7.5 E9/L [facility] Neutrophils/100 WBC (Bld) 66.4 % Normal 36.0 - 75.0 % [facility] Platelet mean volume (Bld) [Entitic vol] 8.3 fL Normal 6.4 - 10.8 fL [facility] Platelets (Bld) [#/Vol] 247.0 E9/L Normal 150.0 - 500.0 E9/L [facility] RBC (Bld) [#/Vol] 4.5 E12/L Normal 4.3 - 5.9 E12/L [facility] WBC corrected for nucl RBC Auto (Bld) [#/Vol] 6.7 E9/L Normal 4.0 - 11.0 E9/L [facility] Lab Miscellaneous-LCon 04-27 Test Code 00 Invalid Interpretation Code [facility] Comment on above: Performed By: #### 1 [id number] #### [facility] Laboratory [address] [place] [address] Test Name Peripheral Smea Invalid Interpretation Code [facility] Comment on above: Performed By: #### 1 [id number] #### [facility] [address] [place] [address] Lipid Panelon 04-27-2024 Cholesterol [Mass/Vol] 162 mg/dL Normal 120-200 [facility] Comment on above: Performed By: #### 2 [id number] #### [facility] [address] [place] [address] Cholesterol in HDL [Mass/Vol] 49 mg/dL Invalid Interpretation Code [facility] Comment on above: Result Comment: '>= 60 LOW RISK' '<= 40 HIGH RISK' Performed By: #### 2 [id number] #### [facility] [address] [place] [address] Cholesterol in LDL [Mass/Vol] 90 mg/dL Normal <=129 [facility] Comment on above: Performed By: #### 2 [id number] #### [facility] [address] [place] [address] Cholesterol in VLDL [Mass/Vol] 22 mg/dL Normal 7-40 [facility] Comment on above: Performed By: #### 2 882861 #### [facility] [address] [place] [address] Triglyceride [Mass/Vol] 108 mg/dL Normal <=149 [facility] Comment on above: Performed By: #### 2 [id number] #### [facility] Laboratory [address] [place] [address] Reference Laboratory Testing Ordered By: Bree Jalloh on 04-27-2024 Test Code 00 1 Invalid Interpretation Code [facility] Test Name Peripheral Smea Invalid Interpretation Code [facility] eGFRon 04-27-2024 eGFR 115 mL/min/1.73 m2 Normal >=59 [facility] Comment on above: Order Comment: Order added by Discern Expert. Performed By: #### 1 [id number] #### [facility] Laboratory [address] [facility] [address] Ambulatory Visit Summaryon 0 04-26-2024 Ambulatory Visit Summary RIVER FITZGERALD :1990 Visit Date:04/26/2024 Ambulatory Visit Instructions Your Diagnosis Splenomegaly BMI 45.0-49.9, adult, Body mass index [BMI] 45.0-49.9, adult Class 3 severe obesity due to excess calories with body mass index (BMI) of 45.0 to 49.9 in adult Vaping-related disorder Your Care Team Attending Physician - Rich Burnette MD Primary Care Physician - Rich Burnette MD This Is Your Medications List azithromycin (Azithromycin 3 Day Dose Pack 500 mg oral tablet) cetirizine (Zyrtec Dissolve 10 mg oral tablet, dispersible) estradiol (estradiol 1 mg Tab) Procedures Performed Adenoidectomy, delivery, Excision of right breast lump, Hysterectomy, LEEP (Loop electrosurgical excision procedure) of cervix, Tonsillectomy. Discharge Vitals Temperature (Temporal Artery) 36.7 ?C Heart Rate (Peripheral) 80 Respiratory Rate 20 Blood Pressure 122/76 Height 157.5 cm Height 62 in Weight 115.5 kg Weight 254.1 lb BMI 46.56 What to do next Scheduled Follow-Up Appointments 2023 7:00 AM EDT With: Rich Burnette MD Where: [facility] [place] Normal [facility] Family Medicine Office/Clini c Noteon 04-26-2024 Family Medicine Office/Clinic Note HPI Staff Rievr is a 33 year old female presenting to discuss Ct results the GYNE ordered No results in her chart, unsure where this was done patient brought results with her questions/concerns: just wants to know why her spleen is enlarged History of Present Illness - Lower Abdominal pain on the R with OBGYN, CT ordered - CT showed a 13.9cm spleen. Review of Systems PHQ Score Initial Depression Screen Score: 0 SCORE Physical Exam Vitals & Measurements T: 36.7 ?C(Temporal Artery) HR: 80(Peripheral) RR: 20 BP: 122/76 SpO2: 99% HT: 62 in HT: 157.5 cm WT: 115.5 kg WT: 254.1 lb BMI: 46.56 General: alert, no acute distress ENMT: oral mucosa moist, Cardiovascular: normal peripheral perfusion Respiratory: non labored Extremities: no deformity, no trauma Neurological: oriented x 4, LOC appropriate for age, CN II-XII intact, motor strength equal & normal bilaterally, speech normal Assessment/Plan 1. Splenomegaly (R16.1: Splenomegaly, not elsewhere classified) - Unsure the cause. - No symptoms at this time. - Will do basic blood work with a peripheral smear - Follow up PRN Ordered: CBC w/ Auto Diff Comprehensive Metabolic Panel Lab Miscellaneous-LC 2. BMI 45.0-49.9, adult (Z68.42: Body mass index [BMI] 45.0-49.9, adult) - BMI education given Ordered: CBC w/ Auto Diff Comprehensive Metabolic Panel Lab Miscellaneous-LC 3. Class 3 severe obesity due to excess calories with body mass index (BMI) of 45.0 to 49.9 in adult (E66.01: Morbid (severe) obesity due to excess calories) - Diet and exercise advised Ordered: CBC w/ Auto Diff Comprehensive Metabolic Panel Lab Miscellaneous-LC 4. Vaping-related disorder (U07.0: Vaping-related disorder) - Please stop Vaping. Ordered: CBC w/ Auto Diff Comprehensive Metabolic Panel Lab Miscellaneous-LC Total time spent preparing for the encounter, evaluating and assessing the patient, documenting the visit, and ordering appropriate follow-up work was 30 minutes. Follow-up No qualifying data available Problem List/Past Medical History Ongoing Asthma Breast lump in female Cervical dysplasia Frequent headaches GERD without esophagitis Pelvic pain Physical exam Sinus pressure Smoker Splenomegaly Historical No qualifying data Procedure/Surgical History Adenoidectomy, delivery, Excision of right breast lump, Hysterectomy, LEEP (Loop electrosurgical excision procedure) of cervix, Tonsillectomy. Medications Azithromycin 3 Day Dose Pack 500 mg oral tablet, 500 mg= 1 tab(s), Oral, Daily estradiol 1 mg Tab, 1 mg= 1 tab(s), Oral, Daily Zyrtec Dissolve 10 mg oral tablet, dispersible, 10 mg= 1 tab(s), Oral, Daily, PRN Allergies Augmentin (Vomiting) penicillins (Vomiting) Social History Tobacco Former smoker, quit more than 30 days ago Tobacco Use:. Current vaping or e-cigarette use Smokeless Tobacco Use:. Vaping, Household tobacco concerns: No., 04/26/2024 Family History Asthma: Mother and Sister. Hypertension: [...] measles/mumps/rubell a virus vaccine 07/11/1990 Recorded Normal [facility] Comment on above: Result Comment: Elec tronically Signed By: Vasile FRAGOSO, Rich Colvin.br\Date and Time Signed: 04/26/24 08:01 EDT Family Medicine Office/Clini c Noteon 10-27-2023 Family [...] measles/mumps/rubell a virus vaccine 07/11/1990 Recorded Normal [facility] Comment on above: Result Comment: Elec tronically Signed By: Vasile FRAGOSO, Rich Colvin.brii\Date and Time Signed: 10/27/23 12:56 EST Ambulatory Visit Summaryon 1 11-30-2022 Ambulatory Visit Summary RIVER FITZGERALD :1990 Visit Date:09/30/2023 Ambulatory Visit Instructions Your Diagnosis BMI 40.0-44.9, adult Smoker Your Care Team Attending Physician - Rich Burnette MD Primary Care Physician - Rich Burnette MD. This Is Your Medications List cetirizine (Zyrtec [...] you for choosing us for your care. Eusebia [facility] Patient Educationon 09-30-20 Patient Education Nutrition BMI [...] numbers. This can be done either in [place] ([place] or metric measurements. Note that charts and online BMI calculators are available to help you find your BMI quickly and easily without having to do these calculations yourself. To calculate your BMI in [place] ([place] measurements: 1. Measure your weight in [...] for Disease Control and Prevention: www.cdc.gov ? [place] Heart Association: www.heart.org ? National Heart, Lung, and Blood Squire: www.nhlbi.nih.gov Summary ? Body mass index (BMI) is a number that is calculated from a person's weight and height. ? BMI may help estimate how much of a person's weight is composed of fat. BMI can help identify those who may be at higher risk for certain medical problems. ? BMI can be measured using [place] measurements or metric measurements. ? BMI charts are used to identify whether you are underweight, normal weight, overweight, or obese. This information is not intended to replace advice given to you by your health care provider. Make sure you discuss any questions you have with your health care provider. Document Revised: 07/23/2020 Document Reviewed: 05/30/2020 [employer] Patient Education ? 2022 [email or web address] [facility] Ambulatory Visit Summaryon 1 Ambulatory Visit Summary RIVER FITZGERALD :1990 Visit Date:09/08/2023 Ambulatory Visit Instructions Your Diagnosis BMI 45.0-49.9, adult Class 3 obesity Back pain Tests Performed Urnls Dip Stick Non-Auto w/o Micrscpy POC 88408 Your Care Team Attending Physician - Ana [...] Urnls Dip Stick Non-Auto w/o Micrscpy POC 37863 (09/08/2023) Bilirubin Urine Dipstick - Negative Blood Urine Dipstick - Negative Glucose Urine Dipstick - Negative Ketones Urine Dipstick - Negative Leukocytes Urine Dipstick - Negative Nitrite Urine Dipstick - Negative Protein Urine Dipstick - Negative Specific [place] Urine Dipstick - 1.010 Urine Appearance Urine [...] for choosing us for your care. Normal [facility] Auto Diffon 09-08-2023 Basophils/100 WBC (Bld) 0.5 % Normal 0.0-2.0 [facility] Comment on above: Order Comment: Order Added by Discern Expert. Performed By: #### 2 970368, [id number], [id number], [id number], [id number], [id number] #### [facility] Laboratory [address] [place] [address] Basophils/Leukocytes Auto (Bld) [Pure # fraction] 0.0 E9/L Normal 0.0-0.2 [facility] Comment on above: Order Comment: Order Added by Discern Expert. Performed By: #### 2 157218, [id number], [id number], [id number], [id number], [id number] #### [facility] [address] [place] [address] Eosinophils/100 WBC (Bld) 2.1 % Normal 0.0-8.0 [facility] Comment on above: Order Comment: Order Added by Discern Expert. Performed By: #### 2 066026, [id number], 7530862, [id number], [id number], [id number] #### [facility] Laboratory [address] [place] [address] Eosinophils/Leukocyte s Auto (Bld) [Pure # fraction] 0.2 E9/L Normal 0.0-0.5 [facility] Comment on above: Order Comment: Order Added by Discern Expert. Performed By: #### 2 680755, [id number], [id number], [id number], [id number], [id number] #### [facility] [address] [place] [address] Lymphocytes/100 WBC (Bld) 24.1 % Normal 14.0-50.0 [facility] Comment on above: Order Comment: Order Added by Discern Expert. Performed By: #### 2 529738, 0734272, 7594996, [id number], [id number], [id number] #### [facility] [address] [place] [address] Lymphocytes/Leukocyte s Auto (Bld) [Pure # fraction] 2.0 E9/L Normal 1.0-4.0 [facility] Comment on above: Order Comment: Order Added by Discern Expert. Performed By: #### 2 129466, 3599476, 2968773, 4964675, 8566882, [id number] #### [facility] [address] [place] [address] Monocytes/100 WBC (Bld) 5.0 % Normal 4.0-14.0 [facility] Comment on above: Order Comment: Order Added by Discern Expert. Performed By: #### 2 167476, [id number], 5807485, 8745280, 8488631, [id number] #### [facility] [address] [place] [address] Monocytes/Leukocytes Auto (Bld) [Pure # fraction] 0.4 E9/L Normal 0.2-1.0 [facility] Comment on above: Order Comment: Order Added by Discern Expert. Performed By: #### 2 052564, 6073196, 6129569, 6824174, [id number], [id number] #### [facility] Laboratory [address] [place] [address] Neutrophils/100 WBC (Bld) 68.3 % Normal 36.0-75.0 [facility] Comment on above: Order Comment: Order Added by Discern Expert. Performed By: #### 2 [id number], 5419779, 8617891, 1234072, 8269209, [id number] #### [facility] [address] [place] [address] Neutrophils/Leukocyte s Auto (Bld) [Pure # fraction] 5.5 E9/L Normal 2.0-7.5 [facility] Comment on above: Order Comment: Order Added by Discern Expert. Performed By: #### 2 410645, 4214955, 3850082, 6499350, 6854883, 12710769 #### [facility] [address] [place] [address] CBC w/ Auto Diffon Erythrocyte distribution width (RBC) [Ratio] 13.7 % Normal 10.9-14.2 [facility] Comment on above: Performed By: #### 2 892339, 4752181, 9223831, 9824735, 0513573, 16290544 #### [facility] [address] [place] [address] Hematocrit (Bld) [Volume fraction] 41.8 % Normal 34.0-46.0 [facility] Comment on above: Performed By: #### 2 584454, 2279294, 6973728, 3847969, 7242492, 05545622 #### [facility] [address] [place] [address]13 Hemoglobin (Bld) [Mass/Vol] 13.7 g/dL Normal 12.0-16.0 [facility] Comment on above: Performed By: #### 2 333241, 6304779, 9009858, 5824506, 0656848, 02249714 #### [facility] [address] [place] [address] MCH (RBC) [Entitic mass] 28.7 pg Normal 27.0-34.0 [facility] Comment on above: Performed By: #### 2 169568, 7693350, 2590012, 2448602, 1325420, 24637450 #### [facility] [address] [place] [address] MCHC (RBC) [Mass/Vol] 32.8 g/dL Normal 31.4-36.0 [facility] Comment on above: Performed By: #### 2 060648, 9520036, 3546796, 6346404, 8032378, 10662823 #### [facility] [address] [place] [address] MCV (RBC) [Entitic vol] 87.5 fL Normal 80.0-100.0 [facility] Comment on above: Performed By: #### 2 132685, 1401761, 0366409, 0863072, 7647597, 15921901 #### [facility] [address] [place] [address] Platelet mean volume (Bld) [Entitic vol] 8.7 fL Normal 6.4-10.8 [facility] Comment on above: Performed By: #### 2 112259, 8521244, 5498332, 1770771, 5434065, 34982342 #### [facility] [address] [place] [address] Platelets (Bld) [#/Vol] 264.0 E9/L Normal 150.0-500.0 [facility] Comment on above: Performed By: #### 2 047102, 9669325, 8929556, 6528962, 6704664, 36029276 #### [facility] [address] [place], [place] [address] RBC (Bld) [#/Vol] 4.8 E12/L Normal 4.3-5.9 [facility] Comment on above: Performed By: #### 2 839483, 1139900, 6218827, 3451059, 5826430, 68976622 #### [facility] [address] [place] [address] WBC corrected for nucl RBC Auto (Bld) [#/Vol] 8.1 E9/L Normal 4.0-11.0 [facility] Comment on above: Performed By: #### 2 605027, 2417615, 3245209, 6297624, 5209660, 64588127 #### [facility] [address] [place] [address] CHEMISTRYOrdered By: SYSTEM SYSTEM on 09-08-2023 Albumin [...] mmol/L Normal 6 - 16 mEq/L [facility] Remisol AST [Catalytic activity/Vol] 15 [iU]/d Normal [...] 116 mL/min/1.73 m2 Normal >=59mL/min/1. 73 m2 [facility] Comment on above: [...] 1.96 m[IU]/L Normal 0.34 - 5.60 mcIU/mL [facility] Remisol Urea nitrogen [Mass/Vol] 15 mg/dL Normal 5 - 21 mg/dL [facility] Remisol Urea nitrogen/Creatinine [Mass ratio] 21 mg/mg High 10 - 20 [facility] Remisol CMPon 09-08-2023 Albumin [Mass/Vol] 4.4 g/dL Normal 3.3-5.0 [facility] Comment on above: Performed By: #### 2 543533, 0471388, 8068186, 6858362, 9921819, 31114598 #### [facility] [address] [place] [address] Albumin/Globulin (S) [Mass conc ratio] 1.5 Normal 1.1-2.2 [facility] Comment on above: Performed By: #### 2 339925, 1482788, 3846170, 3476941, 1082662, 89841442 #### [facility] [address] [place] [address] ALP [Catalytic activity/Vol] 66 Int._Unit/L Normal 21-98 [facility] Comment on above: Performed By: #### 2 242673, 6940418, 6677630, 3829290, 6203181, 97082505 #### [facility] [address] [place] [address] ALT No additional P-5'-P [Catalytic activity/Vol] 17 Int._Unit/L Normal 6-46 [facility] Comment on above: Performed By: #### 2 187178, 5714269, 9449942, 0364760, 2379376, 06438378 #### [facility] [address] [place], [place] [address] Anion gap [Moles/Vol] 6 mmol/L Normal 6-16 [facility] Comment on above: Performed By: #### 2 940077, 3211251, 1663629, 9787576, 0885584, 87437952 #### [facility] [address] [place] [address]487 AST [Catalytic activity/Vol] 15 Int._Unit/L Normal 5-43 [facility] Comment on above: Performed By: #### 2 845353, 8313975, 2412353, 9332783, 1512213, 68180290 #### [facility] [address] [place] [address] Bilirubin [Mass/Vol] 0.3 mg/dL Normal 0.0-1.1 [facility] Comment on above: Performed By: #### 2 879002, 4842593, 6251848, 6928303, 2776692, 65694170 #### [facility] [address] [place] [address] Calcium [Mass/Vol] 9.4 mg/dL Normal 8.9-11.1 [facility] Comment on above: Performed By: #### 2 274072, 9490420, 3131595, 4114114, 4374556, 18569323 #### [facility] [address] [place] [address] Chloride [Moles/Vol] 110 mmol/L Normal 101-111 [facility] Comment on above: Performed By: #### 2 472974, 4152910, 9857211, 7880685, 3960957, 54017417 #### [facility] [address] [place] [address] CO2 [Moles/Vol] 24 mmol/L Normal 21-31 [facility] Comment on above: Performed By: #### 2 121511, 6665047, 7567606, 0832812, 4970343, 47370444 #### [facility] [address] [place] [address] Creatinine [Mass/Vol] 0.7 mg/dL Normal 0.5-1.3 [facility] Comment on above: Performed By: #### 2 739944, 1491373, 8152233, 1850647, 7214234, 39714899 #### [facility] [address] [place] [address] Globulin (S) [Mass/Vol] 3.0 g/dL Normal 1.4-4.0 [facility] Comment on above: Performed By: #### 2 399172, 1115344, 5010232, 2450712, 3016917, 49571130 #### [facility] [address] [place] [address] Glucose [Mass/Vol] 80 mg/dL Normal 55-199 [facility] Comment on above: Result Comment: If t his glucose result represents a fasting glucose, interpretation should refer to the following reference range: 55-99 mg/dL Performed By: #### 2 781591, 1395032, 7475434, 1565301, 5117860, 32155015 #### [facility] [address] [place] [address] Potassium [Moles/Vol] 3.9 mmol/L Normal 3.5-5.3 [facility] Comment on above: Performed By: #### 2 918974, 2168224, 5259934, 0066708, 4565614, 56968303 #### [facility] [address] [place] [address] Protein [Mass/Vol] 7.4 g/dL Normal 6.0-7.8 [facility] Comment on above: Performed By: #### 2 910929, 2217899, 9318935, 9628347, 5375140, 03329466 #### [facility] [address] [place] [address] Sodium [Moles/Vol] 136 mmol/L Normal 135-145 [facility] Comment on above: Performed By: #### 2 108756, 0197307, 4442403, 8704528, 9603808, 17244234 #### [facility] [address] [place] [address] Urea nitrogen [Mass/Vol] 15 mg/dL Normal 5-21 [facility] Comment on above: Performed By: #### 2 756490, 9774782, 0736791, 3628553, 8725383, 32492217 #### [facility] [address] [place] [address] Urea nitrogen/Creatinine [Mass ratio] 21 No Units High 10-20 [facility] Comment on above: Performed By: #### 2 477873, 0066778, 5499272, 9125715, 0117605, 47097207 #### [facility] [address] [place] [address] Family Medicine Office/Clini c Noteon 09-08-2023 Family [...] Thyroid Stimulating Hormone Orders: Lab Specimen Collect [id number] Follow-up No qualifying data available Problem List/Past [...] Protein Urine Dipstick: Negative (09/08/23 11:34:00) Specific [place] Urine Dipstick: 1.010 (09/08/23 11:34:00) Urine Appearance Urine Dipstick: Clear (09/08/23 11:34:00) Urine Color Urine Dipstick: Light yellow (09/08/23 11:34:00) Urobilinogen Urine Dipstick: Normal 0.2-1 EU/dl (09/08/23 11:34:00) pH Urine Dipstick: 6.5 (09/08/23 11:34:00) Normal [facility] Comment on above: Result Comment: Elec tronically Signed By: Ana Rowell\.brii\Date and Time Signed: 09/08/23 13:32 EDT HEMATOLOGYOrdered [...] 5.5 E9/L Normal 2.0 - 7.5 E9/L [facility] HemeAutoSS HEMATOLOGYOrdered By: Leanne Roa on 09-08-2023 Erythrocyte distribution width (RBC) [Ratio] 13.7 % Normal 10.9 - 14.2 % [facility] HemeAutoSS Hematocrit (Bld) [Volume fraction] 41.8 % Normal 34.0 - 46.0 % [facility] HemeAutoSS Hemoglobin (Bld) [Mass/Vol] 13.7 g/dL Normal 12.0 - 16.0 gm/dL [facility] HemeAutoSS MCH (RBC) [Entitic mass] 28.7 pg Normal 27.0 - 34.0 pg [facility]eAutoSS MCHC (RBC) [Mass/Vol] 32.8 g/dL Normal 31.4 - 36.0 gm/dL [facility] MCV (RBC) [Entitic vol] 87.5 fL Normal 80.0 - 100.0 fL [facility] HemeAutoSS Platelet mean volume (Bld) [Entitic vol] 8.7 fL Normal 6.4 - 10.8 fL [facility] Platelets (Bld) [#/Vol] 264.0 E9/L Normal 150.0 - 500.0 E9/L [facility] RBC (Bld) [#/Vol] 4.8 E12/L Normal 4.3 - 5.9 E12/L [facility] WBC corrected for nucl RBC Auto (Bld) [#/Vol] 8.1 E9/L Normal 4.0 - 11.0 E9/L [facility] Lipid Panelon 09-08-2023 Cholesterol [Mass/Vol] 169 mg/dL Normal 120-200 [facility] Comment on above: Performed By: #### 2 350104, 8257456, 5321415, 2273864, 6896664, 34658749 #### [facility] [address] [place] [address] Cholesterol in HDL [Mass/Vol] 53 mg/dL Invalid Interpretation Code [facility] Comment on above: Result Comment: HDL > or equal to 60 mg/dL: Low cardiovascular risk HDL < 40 mg/dL : High cardiovascular risk Performed By: #### 2 885036, 5348079, 8272843, 0004763, 6337727, 48832748 #### [facility] [address] [place] [address] Cholesterol in LDL [Mass/Vol] 94 mg/dL Normal <=129 [facility] Comment on above: Performed By: #### 2 899146, 3646265, 8040260, 8279796, 0301249, 82546039 #### [facility] [address] [place] [address] Cholesterol in VLDL [Mass/Vol] 27 mg/dL Normal 7-40 [facility] Comment on above: Performed By: #### 2 466998, 8946673, 9688019, 6933857, 2508402, 92762655 #### [facility] [address] [place] [address] Triglyceride [Mass/Vol] 133 mg/dL Normal <=149 [facility] Comment on above: Performed By: #### 2 971045, 4026344, 5201370, 7936419, 1003286, 74318849 #### [facility] [address] [place] [address] TSHon 09-08-2023 TSH Qn 1.96 m[IU]/L Normal 0.34-5.60 [facility] Comment on above: Performed By: #### 2 660748, 8526579, 6957506, 0227499, 3194496, 46085164 #### [facility] [address] [place] [address] eGFRon 09-08-2023 GFR/1.73 sq M.predicted among non-blacks MDRD (S/P/Bld) [Vol rate/Area] 116 mL/min/1.73 m2 Normal >=59 [facility] Comment on above: Order Comment: Order added by Discern Expert. Result Comment: Education Supervisor ben kidney disease could be indicated at eGFR's of less than 60 mL/min/1.73m2. Kidney failure is indicated at less than 15 mL/min/1.73m2. Performed By: #### 2 933976, 5910316, 8657085, 7273627, 6124355, 39255871 #### [facility] [address] [place] [address] Nurse Consultation Noteon Nurse Consultation Note Reason [...] couldn't get her. Patient will go to [facility] for her labs next time she's in [place] Medications amoxicillin-clavulan ate 875 mg-125 mg Tab, [...] a virus vaccine 07/11/1990 Recorded Normal [facility] Family Medicine Office/Clini c Noteon 07-26-2023 Family [...] measles/mumps/rubell a virus vaccine 07/11/1990 Recorded Normal [facility] Comment on above: Result Comment: Elec tronically Signed By: Vasile FRAGOSO, Rich Fieldsbr\Date and Time Signed: 07/26/23 17:11 EDT US PELVIS AND TRANSVAGon US PELVIS AND [...] TERESA BOYER Date: 2022-12-22 18:21 Normal [facility] CORTISOL FREE, SERUMon 08-31 Cortisol, Free Dialysis, LCMS 0.116 ug/dL Normal [facility] Comment on above: Result Comment: Thes e tests were developed and their performance characteristics determined by [email or web address]. They have not been cleared or approved by the Food and Drug Administration. Reference Range: 8 AM 0.10 - 1.20 4 PM 0.042 - 0.872 Performed By: #### F RECORT #### [facility] [address] [place] [address] Dr. Edie Rincon THYROGLOBULINon 08-28-2022 Thyroglobulin 15 ng/mL Normal [facility] Comment on above: Result Comment: This test was developed and its performance characteristics determined by [email or web address]. It has not been cleared or approved [...] ng/mL. Performed By: #### T GRIA #### [facility] [address] [address] [address] Edie Rincon ESTRONEon 10-14-2022 Estrone, Serum 47 pg/mL Normal 27-231 [facility] Comment on above: Result Comment: Rang e Adult (Premenopausal) 27 - 231 Menstrual Cycle (1-10 days) 19 - 149 Menstrual Cycle (11-20 days) 32 - 176 Menstrual Cycle (21-30 days) 37 - 200 Performed By: #### E STRONE #### [facility] [address] [address] [address] Edie Rincon PAP ACOG PANEL 2: 30 to 65on 08-25-2022 . . Normal [facility] Comment on above: Result Comment: Perf ormed at: WB Performed By: #### 4 [id number] #### [facility] [address] [address] [address] Edie Rincon Age Gdln ACOG Testing 30-65 [facility] Comment on above: Performed By: #### 4 [id number] #### [facility] [address] [place] [address] Dr. Edie Rincon DIAGNOSIS: Comment Normal [facility] Comment on above: Result Comment: NEGA TIVE FOR INTRAEPITHELIAL LESION OR MALIGNANCY. Performed at: WB Performed By: #### 4 [id number] #### [facility] [address] [address] [address] Edie Rincon HPV Aptima Negative Normal Negative [facility] Comment on above: Result Comment: This nucleic acid amplification test detects fourteen high-risk HPV types (16,18,31,33,35,39,45,51,52,56,58,59,66,68) without differentiation. Performed at: =G Performed By: #### 4 [id number] #### [facility] [address] [address] [address] Edie Rincon Methodology: Comment [facility] Comment on above: Result Comment: This liquid based ThinPrep(R) pap test was screened with the use of an image guided system. Performed at: WB Performed By: #### 4 [id number] #### [facility] [address] [address] [address] Edie Rincon Note: Comment Normal [facility] Comment on above: Result Comment: The Pap smear is a screening test designed to aid in the detection of premalignant and malignant conditions of the uterine cervix. It is not a diagnostic procedure and should not be used as the sole means of detecting cervical cancer. Both false-positive and false-negative reports do occur. . Performed at: WB Performed By: #### 4 [id number] #### [facility] [address] [place] [address] Dr. Edie Rincon Performed by: Comment Normal [facility] Comment on above: Result Comment: [address] [employer] (ASCP) Performed at: WB Performed By: #### 4 [id number] #### [facility] [address] [place] [address] Dr. Edie Rincon Specimen adequacy: Comment Normal [facility] Comment on above: Result Comment: Sati sfactory for evaluation. No endocervical component is identified. Performed at: WB Performed By: #### 4 [id number] #### [facility] [address] [place] [address] Dr. Edie Rincon SEROTONINon 08-25-2022 Serotonin, Serum 54 ng/mL Normal 31-207 [facility] Comment on above: Performed By: #### F RECORT #### [facility] [address] [place] [address] Dr. Edie Rincon FREE TESTOSTERONEon 08-23-20 22 Free Testosterone(Direct) 2.8 pg/mL Normal 0.0-4.2 [facility] Comment on above: Performed By: #### F T4, FERR #### [facility] [address] [place] [address] Dr. Edie Rincon REVERSE T3on 08-23-2022 Reverse T3, Serum 11.1 ng/dL Normal 9.2-24.[address] [facility] Comment on above: Result Comment: This test was developed and its performance characteristics determined by [employer]. It has not been cleared or approved by the Food and Drug Administration. Performed By: #### F RECORT #### [facility] [address] [place] [address] Dr. Edie Rincon VIT D 1 25 DIHYDROXYon 08-21 Calcitriol(1,25 di-OH Vit D) 18.8 pg/mL Critically low 24.8-81.5 [facility] Comment on above: Result Comment: Pl ease note reference interval change Performed By: #### V [id number] #### [facility] [address] [place] [address] Dr. Edie Rincon C-PEPTIDE, SERUMon 2 C-Peptide, Serum 2.9 ng/mL Normal 1.1-4.4 [facility] Comment on above: Result Comment: C-Pe ptide reference interval is for fasting patients. Performed By: #### F RECORT #### [facility] [address] [place] [address] Dr. Edie Rincon DHEA-SULFATEon 08-20-2022 DHEA-Sulfate 271.0 ug/dL Normal 84.8-378.0 [facility] Comment on above: Performed By: #### D HEASMAUREEN #### [facility] [address] [place] [address] Dr. Edie Rincon ESTRADIOLon 08-20-2022 Estradiol 68.2 pg/mL Normal [facility] Comment on above: Result Comment: Adul t Female: Follicular phase 12.5 - 166.0 Ovulation phase 85.8 - 498.0 Luteal phase 43.8 - 211.0 Postmenopausal <6.0 - 54.7 1st trimester 215.0 - >4300.0 Kai [employer]CLIA methodology Performed By: #### F RECORT #### [facility] [address] [place] [address] Dr. Edie Rincon INSULINon 08-20-2022 Insulin 17.7 uIU/mL Normal 2.6-24.9 [facility] Comment on above: Performed By: #### F T4, FERR #### [facility] [address] [place] [address] Dr. Edie Rincon PROGESTERONEon 08-20-2022 Progesterone 4.5 ng/mL Normal [facility] Comment on above: Result Comment: Foll icular phase 0.1 - 0.9 Luteal phase 1.8 - 23.9 Ovulation phase 0.1 - 12.0 First trimester 11.0 - 44.3 Second trimester 25.4 - 83.3 Third trimester 58.7 - 214.0 Postmenopausal 0.0 - 0.1 Performed By: #### F RECORT #### [facility] [address] [place] [address] Dr. Edie Rincon SEX HORMONE-BINDING GLOBULIN on 08-20-2022 Sex Horm Binding Glob, Serum 54.6 nmol/L Normal 24.6-122.0 [facility] Comment on above: Performed By: #### F T4, FERR #### [facility] [address] [place] [address] Dr. Edie Rincon T3, TOTAL (TRIIODOTHYRONINE) on 08-20-2022 T3, TOTAL 128 ng/dL Normal 71-180 [facility] Comment on above: Performed By: #### F RECORT #### [facility] [address] [place] [address] Dr. Edie Rincon TESTOSTERONE, TOTALon 2021 Testosterone [Mass/Vol] 45 ng/dL Normal 8-60 [facility] Comment on above: Performed By: #### T ESTTOT #### [facility] [address] [place] [address] Dr. Edie Rincon THYROGLOBULIN ABon Thyroglobulin Antibody <1.0 Normal 0.0-0.9 [facility] Comment on above: Result Comment: Thyr oglobulin Antibody measured by [email or web address] Methodology Performed By: #### F T4, FERR #### [facility] [address] [place] [address] Dr. Edie Rincon THYROID PEROXIDASE ABon 10-0 Thyroid Peroxidase (TPO) Ab <8 Normal 0-34 [facility] Comment on above: Performed By: #### F T4, FERR #### [facility] [address] [place] [address] Dr. Edie Rincon FERRITINon 08-18-2022 Ferritin [Mass/Vol] 119.0 ng/mL Normal 6.2-137.0 [facility] Comment on above: Performed By: #### F T4, FERR #### [facility] [address] [place] [address] Dr. Edie Rincon FREE T3on 08-18-2022 FREE T3 2.18 pg/mlL Normal 2.18-3.98 [facility] Comment on above: Performed By: #### F T4, FERR #### [facility] [address] [place] [address] Dr. Edie Rincon FREE T4on 08-18-2022 Free T4 [Mass/Vol] 0.84 ng/dL Normal 0.76-1.46 [facility] Comment on above: Performed By: #### F T4, FERR #### [facility] [address] [place] [address] Dr. Edie Rincon GLUCOSE BLOODon 08-18-2022 Glucose [Mass/Vol] 89 mg/dL Normal 74-106 [facility] Comment on above: Performed By: #### F T4, FERR #### [facility] [address] [place] [address] Dr. Edie Rincon GLYCOHEMOGLOBIN A1Con 2021 ADA RECOMMENDATION SEE BELOW Normal [facility] Comment on above: Result Comment: ADA RECOMMENDED LIMIT 4.0 - 6.0 ADA THERAPEUTIC TARGET < 7.0 ACTION SUGGESTED > 7.0 Performed By: #### A 1C #### [facility] [address] [place] [address] Dr. Edie Rincon Glucose [Mass/Vol] 108 mg/dL Normal [facility] Comment on above: Performed By: #### A 1C #### [facility] [address] [place] [address] Dr. Edie Rincon HbA1c (Bld) [Mass fraction] 5.4 % Normal 4.5-6.2 [facility] Comment on above: Performed By: #### A 1C #### [facility] [address] [place] [address] Dr. Edie Rincon T4on 08-18-2022 T4 [Mass/Vol] 6.70 ug/dL Normal 4.80-13.90 [facility] Comment on above: Performed By: #### F T4, FERR #### [facility] [address] [place] [address] Dr. Edie Rincon TSHon 10-05-2022 TSH 1.961 uIU/mL Normal 0.358-3.740 [facility] Comment on above: Performed By: #### F T4, FERR #### [facility] [address] [place] [address] Dr. Edie Rincon Vital Signs Date Time Vital Sign Value Performing Clinician Facility 03-22-2025 11:39-0400 Blood Pressure Location LINA BENNY [facility] 03-22-2025 11:39-0400 Body temperature 97.52 [degF] LINA BENNY [facility] 03-22-2025 11:39-0400 Diastolic blood pressure 84 mm[Hg] LINA BENNY [facility] 03-22-2025 11:39-0400 Heart rate 78 /min LINA BENNY [facility] 03-22-2025 11:39-0400 Respiratory rate 20 /min LINA BENNY [facility] 03-22-2025 11:39-0400 SaO2% (BldA) [Mass fraction] 100 % LINA BENNY [facility] 03-22-2025 11:39-0400 Systolic blood pressure 132 mm[Hg] LINA BENNY [facility] 11-01-2024 17:11-0500 Body temperature 97.81 [degF] Yesenia Waggoner DRUG AND ALCOHOL COUNSELOR Work Phone: [facility] 11-01-2024 17:11-0500 Diastolic blood pressure 84 mm[Hg] Yesenia Waggoner DRUG AND ALCOHOL COUNSELOR Work Phone: [facility] 11-01-2024 17:11-0500 Heart rate 89 /min Yesenia Waggoner DRUG AND ALCOHOL COUNSELOR Work Phone: [facility] 11-01-2024 17:11-0500 SaO2% (BldA) [Mass fraction] 98 % Yesenia Waggoner DRUG AND ALCOHOL COUNSELOR Work Phone: [facility] [employer] 11-01-2024 17:11-0500 Systolic blood pressure 118 mm[Hg] Yesenia Edilson DRUG AND ALCOHOL COUNSELOR Work Phone: [facility] 05-07-2023 12:05-0400 Body height 157.48 cm Sayda Maria [place] Other [facility] Other 05-07-2023 12:05-0400 Body mass index (BMI) [Ratio] 44.81 kg/m2 Sayda Maria [place] Other [facility] Other 05-07-2023 12:05-0400 Body temperature 97.3 [degF] Sayda Maria [place] Other [facility] Other 05-07-2023 12:05-0400 Body weight 111.13 kg Sayda Gillespiemond Other [facility] Other 05-07-2023 12:05-0400 Diastolic blood pressure 81 mm[Hg] Sayda Maria [place] Other [facility] Other 05-07-2023 12:05-0400 Respiratory rate 18 /min Sayda Maria [place] Other [facility] Other 05-07-2023 12:05-0400 SaO2% (BldA) [Mass fraction] 98 % Sayda Maria [place] Other [facility] Other 05-07-2023 12:05-0400 Systolic blood pressure 125 mm[Hg] Sayda Maria [place] Other [facility] Other Encounters Encounter Date Encounter Type Care Provider Facility Start: 04-09-2025 End: 04-09-2025 ambulatory LINA Louis BENNY Facility:[facility]ra Start: 03-22-2025 End: 03-22-2025 ambulatory LINA ZAPATA Facility:[facility] Start: 03-22-2025 End: 03-22-2025 Patient encounter procedure LINA Louis BENNY [facility] Start: 11-01-2024 End: 11-01-2024 Office outpatient new 45 minutes Yesenia Waggoner DRUG AND ALCOHOL COUNSELOR Work Phone: [facility] Comment on above: Acute non-recurrent maxillary sinusitis (Primary Dx) Start: 11-01-2024 End: 11-01-2024 ambulatory YESENIA WAGGONER Not Available Start: 06-07-2024 ambulatory Rich Burnette [facility] Start: 04-27-2024 End: 04-27-2024 ambulatory Rich Burnette Facility[facility] Start: 04-27-2024 End: 04-27-2024 Patient encounter procedure Rich Burnette [facility] Start: 04-26-2024 End: 04-26-2024 ambulatory Rich Burnette Facility:[facility] Start: 03-29-2024 Patient encounter procedure Yesenia Waggoner DRUG AND ALCOHOL COUNSELOR Work Phone: [facility] Start: 03-29-2024 End: 03-29-2024 ambulatory AUTUMN QUINTEN Not Available Start: 12-06-2023 End: 12-06-2023 ambulatory AUTUMN QUINTEN Not Available Start: 09-30-2023 End: 09-30-2023 ambulatory Rich Burnette Facility:[facility] Start: 09-08-2023 End: 09-08-2023 Lab Drop off Ana Hammer [facility] Start: 09-08-2023 End: 09-08-2023 ambulatory Ana Hammer Facility:[facility] Start: 08-08-2023 End: 08-08-2023 ambulatory Rich Burnette Facility:[facility] Start: 07-26-2023 End: 07-26-2023 Lab Drop off Rich Burnette [facility] Start: 07-26-2023 End: 07-26-2023 ambulatory Rich Burnette Facility:[facility] Start: 05-11-2023 End: 05-11-2023 ambulatory Sayda Irene Other [facility] Other Start: 05-11-2023 Telephone encounter Sayda [facility] Start: 05-09-2023 End: 05-09-2023 ambulatory Remedios Padilla Other [facility] Other Start: 05-09-2023 Telephone encounter Remedios [facility] Start: 05-07-2023 End: 05-07-2023 ambulatory Sayda Irene Other [facility] Other Start: 05-07-2023 Office outpatient vi sit 15 minutes Sayda Irene [facility] Start: 12-21-2022 End: 12-22-[address] AUTUMN SOTELO Facility:[facility] Start: 08-18-2022 End: 08-18-[address] AUTUMN SOTELO Facility:[facility] Start: 08-18-2022 End: 08-19-[address] AUTUMN SOTELO Facility:[facility] Procedures Date Procedure Procedure Detail Performing Clinician Start: 03-29-2024 H/O: hysterectomy H/O: hysterectomy Yesenia Waggoner DRUG AND ALCOHOL COUNSELOR Work Phone: Adenoid excision Rich Burnette section Rich Burnette Hysterectomy Rich Burnette Loop electrosurgical excision procedure of cervix Rich Burnette Lumpectomy of right breast S amtejal Burnette Tonsillectomy Rich Burnette Immunizations Immunization Date Immunization Notes Care Provider Cassandra hensleyrosina 08-24-2019 influenza virus vaccine, unspecified formulation [facility] 12-[facility]-2017 influenza virus vaccine, unspecified formulation Rich Burnette [facility] [facility] 12-10-2015 tetanus toxoid, reduced diphtheria toxoid, and acellular pertussis vaccine, adsorbed [facility] 11-11-2000 hepatitis B vaccine, pediatric or pediatric/adolescent dosage [facility] 07-11-2000 hepatitis B vaccine, pediatric or pediatric/adolescent dosage Rich Burnette [facility] [facility] 05-09-2000 hepatitis B vaccine, pediatric or pediatric/adolescent dosage [facility] Burn[facility] 05-28-1991 Hib, unspecified formulation [facility] 07-11-1990 measles, mumps and rubella virus vaccine Richtejal Burnette [facility] NEGATED: Highlighted row has not occurred!09-08-2023 influenza virus vaccine, unspecified formulation Ana Hammer [facility] Payers Date Payer Category [facility] [id number] 2023 Unknown [id number] 2023 Unknown [id number] 1988 Unknown [id number] 2.16.840.1.989758.3.579.2. 593 1988 Unknown [id number] 2.16.840.1.247323.3.579.2. 593 1988 Unknown [id number] 2.16.840.1.123923.3.579.2. 59 1988 Unknown [id number] 2.16.840.1.200316.3.579.2. 72 1988 Unknown [id number] 2.16.840.1.686166.3.579.2. 72 1988 Unknown [id number] 2.16.840.1.319501.3.579.2. 72 1988 Unknown [id number] 2.16.840.1.245273.3.579.2. 72 1988 Unknown [id number] 2.16.840.1.818461.3.579.2. 727 1988 Unknown [id number] 2.16.840.1.577289.3.579.2. 72 1988 Unknown [id number] 2.16.840.1.817895.3.579.2. 727 1988 Unknown [id number] 2.16.840.1.511376.3.579.2. 72 1988 Unknown [id number] 2.16.840.1.541095.3.579.2. 727 1988 Unknown [id number] 2.16.840.1.092511.3.579.2. 72 1988 Unknown [id number] 2.16.840.1.193294.3.579.2. 1259 1988 Unknown [id number] 2.16.840.1.176380.3.579.2. 1259 1988 Unknown [id number] 2.16.840.1.952602.3.579.2. 1259 1988 Unknown [id number] 2.16.840.1.266117.3.579.2. 727 1988 Unknown [id number] 2.16.840.1.376366.3.579.2. 727 1959 Unknown [id number] Unknown [id number] Social History Date Type Detail Facility Unknown if ever smoked [facility] Other Sex Assigned At [facility] Start: 07-26-2023 End: 03-22-2025 Tobacco smoking status Ex-smoker (finding) [facility] Start: 11-16-2023 Tobacco smoking status AKIS Tobacco smoking consumption unknown [facility] Start: 11-01-2024 Alcoholic beverage intake Current drinker of alcohol (finding) [facility] Start: 11-16-2023 Tobacco Comment *current smoker, frequency unknown [facility] Start: 11-16-2023 Alcohol Comment caffeine: 1-2 cups per day [facility] Start: 1988 Sex assigned at Not on file [facility] Sexual Orientation [facility] Start: 11-14-2017 Sex Female (finding) [facility] Functional Status Date Assessment Result Facility 03-22-2025 Functional Status N/A [facility] Clinical Notes 05-07-2023 to 03-22-2025 Yesenia Waggoner NP - 11/01/2024 5:05 PM ESTLaboratory Note Date & Type Note Facility 03-22-2025 Hospital Discharge instructions Patient Education 03/22/2025 12:20:42 Migraine Headache, Xfqf-[id number] Migraine Headache A migraine headache is a very strong throbbing pain on one or both sides of your head. This type of headache can also cause other symptoms. It can last from 4 hours to 3 days. Talk with your doctor about what things may bring on (trigger) this condition. What are the causes? The exact cause of a migraine is not known. This condition may be brought on or caused by: Smoking. Medicines, such as: ?Medicine used to treat chest pain (nitroglycerin). ? control pills. ?Estrogen. ?Some blood pressure medicines. Certain substances in some foods or drinks. Foods and drinks, such as: ?Cheese. ?Chocolate. ?Alcohol. ?Caffeine. Doing physical activity that is very hard. Other things that may trigger a migraine headache include: Periods. . Hunger. Stress. Getting too much or too little sleep. Weather changes. Feeling tired (fatigue). What increases the risk? Being [age] years old. Being female. Having a family history of migraine headaches. Being . Having a mental health condition, such as being sad (depressed) or feeling worried or nervous (anxious). Being very overweight (obese). What are the signs or symptoms? A throbbing pain. This pain may: ?Happen in any area of the head, such as on one or both sides. ?Make it hard to do daily activities. ?Get worse with physical activity. ?Get worse around bright lights, loud noises, or smells. Other symptoms may include: ?Feeling like you may vomit (nauseous). ?Vomiting. ?Dizziness. Before a migraine headache starts, you may get warning signs (an aura). An aura may include: ?Seeing flashing lights or having blind spots. ?Seeing bright spots, halos, or zigzag lines. ?Having tunnel vision or blurred vision. ?Having numbness or a tingling feeling. ?Having trouble talking. ?Having weak muscles. After a migraine ends, you may have symptoms. These may include: ?Tiredness. ?Trouble thinking (concentrating). How is this treated? Taking medicines that: ?Relieve pain. ?Relieve the feeling like you may vomit. ?Prevent migraine headaches. Treatment may also include: ?Acupuncture. ?Lifestyle changes like avoiding foods that bring on migraine headaches. ?Learning ways to control your body functions (biofeedback). ?Therapy to help you know and deal with negative thoughts (cognitive behavioral therapy). Follow these instructions at home: Medicines Take bmez-bil-swxvmno and prescription medicines only as told by your doctor. If told, take steps to prevent problems with pooping (constipation). You may need to: ?Drink enough fluid to keep your pee (urine) pale yellow. ?Take medicines. You will be told what medicines to take. ?Eat foods that are high in fiber. These include beans, whole grains, and fresh fruits and vegetables. ?Limit foods that are high in fat and sugar. These include fried or sweet foods. Ask your doctor if you should avoid driving or using machines while you are taking your medicine. Lifestyle Do not drink alcohol. Do not smoke or use any products that contain nicotine or tobacco. If you need help quitting, ask your doctor. Get 7 9 hours of sleep each night, or the amount recommended by your doctor. Find ways to deal with stress, such as meditation, deep breathing, or yoga. Try to exercise often. This can help lessen how bad and how often your migraines happen. General instructions Keep a journal to find out what may bring on your migraine headaches. This can help you avoid those things. For example, write down: ?What you eat and drink. ?How much sleep you get. ?Any change to your medicines or diet. If you have a migraine headache: ?Avoid things that make your symptoms worse, such as bright lights. ?Lie down in a dark, quiet room. ?Do not drive or use machinery. ?Ask your doctor what activities are safe for you. Where to find more information Coalition for Headache and Migraine Patients (CHAMP): headachemigraine.org [place] Migraine Foundation: americanmigrainefoundation.org National Headache Foundation: headaches.org Contact a doctor if: You get a migraine headache that is different or worse than others you have had. You have more than 15 days of headaches in one month. Get help right away if: Your migraine headache gets very bad. Your migraine headache lasts more than 72 hours. You have a fever or stiff neck. You have trouble seeing. Your muscles feel weak or like you cannot control them. You lose your balance a lot. You have trouble walking. You faint. You have a seizure. This information is not intended to replace advice given to you by your health care provider. Make sure you discuss any questions you have with your health care provider. Document Revised: 06/27/2023 Document Reviewed: 06/27/2023 [employer] Patient Education 2023 [employer] 03/22/2025 12:20:40 General Headache Without Cause, Fjlw-yp-Benz General Headache Without Cause A headache is pain or discomfort you feel around the head or neck area. There are many causes and types of headaches. In some cases, the cause may not be found. Follow these instructions at home: Watch your condition for any changes. Let your doctor know about them. Take these steps to help with your condition: Managing pain Take xaco-haf-cdrtjyv and prescription medicines only as told by your doctor. This includes medicines for pain that are taken by mouth or put on the skin. Lie down in a dark, quiet room when you have a headache. If told, put ice on your head and neck area: ?Put ice in a plastic bag. ?Place a towel between your skin and the bag. ?Leave the ice on for 20 minutes, 2 3 times per day. ?Take off the ice if your skin turns bright red. This is very important. If you cannot feel pain, heat, or cold, you have a greater risk of damage to the area. If told, put heat on the affected area. Use the heat source that your doctor recommends, such as a moist heat pack or a heating pad. ? Place a towel between your skin and the heat source. ?Leave the heat on for 20 30 minutes. ?Take off the heat if your skin turns bright red. This is very important. If you cannot feel pain, heat, or cold, you have a greater risk of getting burned. Keep lights dim if bright lights bother you or make your headaches worse. Eating and drinking Eat meals on a regular schedule. If you drink alcohol: ?Limit how much you have to: ?0 1 drink a day for women who are not . ? 0 2 drinks a day for men. ?Know how much alcohol is in a drink. In the [place] one drink equals one 12 oz bottle of beer (355 mL), one 5 oz glass of wine (148 mL), or one 1 oz glass of hard liquor (44 mL). Stop drinking caffeine, or drink less caffeine. General instructions Keep a journal to find out if certain things bring on headaches. For example, write down: ?What you eat and drink. ?How much sleep you get. ?Any change to your diet or medicines. Get a massage or try other ways to relax. Limit stress. Sit up straight. Do not tighten (tense) your muscles. Do not smoke or use any products that contain nicotine or tobacco. If you need help quitting, ask your doctor. Exercise regularly as told by your doctor. Get enough sleep. This often means 7 9 hours of sleep each night. Keep all follow-up visits. This is important. Contact a doctor if: Medicine does not help your symptoms. You have a headache that feels different than the other headaches. You feel like you may vomit (nauseous) or you vomit. You have a fever. Get help right away if: Your headache: ?Gets very bad quickly. ?Gets worse after a lot of physical activity. You have any of these symptoms: ?You continue to vomit. ?A stiff neck. ?Trouble seeing. ?Your eye or ear hurts. ?Trouble speaking. ?Weak muscles or you lose muscle control. ?You lose your balance or have trouble walking. You feel like you will pass out (faint) or you pass out. You are mixed up (confused). You have a seizure. These symptoms may be an emergency. Get help right away. Call your local emergency services (911 in the [place] Do not wait to see if the symptoms will go away. Do not drive yourself to the hospital. Summary A headache is pain or discomfort that is felt around the head or neck area. There are many causes and types of headaches. In some cases, the cause may not be found. Keep a journal to help find out what causes your headaches. Watch your condition for any changes. Let your doctor know about them. Contact a doctor if you have a headache that is different from usual, or if medicine does not help your headache. Get help right away if your headache gets very bad, you throw up, you have trouble seeing, you lose your balance, or you have a seizure. This information is not intended to replace advice given to you by your health care provider. Make sure you discuss any questions you have with your health care provider. Document Revised: 03/31/2022 Document Reviewed: 03/31/2022 [employer] Patient Education 2023 [employer]. Follow Up Care 03/18/2025 17:37:34 With:LINA ZAPATA CNP, FAM Address: [address] [place] [phone] Business (1) When:2 to 4 weeks Comments:Headaches & dermatology referral [facility] 03-22-2025 Note Patient Education Neurology Migraine Headache A migraine headache is a very strong throbbing pain on one or both sides of your head. This type of headache can also cause other symptoms. It can last from 4 hours to 3 days. Talk with your doctor about what things may bring on (trigger) this condition. What are the causes? The exact cause of a migraine is not known. This condition may be brought on or caused by: ??? Smoking. ??? Medicines, such as: ? Medicine used to treat chest pain (nitroglycerin). ? control pills. ? Estrogen. ? Some blood pressure medicines. ??? Certain substances in some foods or drinks. ??? Foods and drinks, such as: ? Cheese. ? Chocolate. ? Alcohol. ? Caffeine. ??? Doing physical activity that is very hard. Other things that may trigger a migraine headache include: ??? Periods. ??? . ??? Hunger. ??? Stress. ??? Getting too much or too little sleep. ??? Weather changes. ??? Feeling tired (fatigue). What increases the risk? Being 25?55 years old. ??? Being female. ??? Having a family history of migraine headaches. ??? Being . ??? Having a mental health condition, such as being sad (depressed) or feeling worried or nervous (anxious). ??? Being very overweight (obese). What are the signs or symptoms? A throbbing pain. This pain may: ? Happen in any area of the head, such as on one or both sides. ? Make it hard to do daily activities. ? Get worse with physical activity. ? Get worse around bright lights, loud noises, or smells. ??? Other symptoms may include: ? Feeling like you may vomit (nauseous). ? Vomiting. ? Dizziness. ??? Before a migraine headache starts, you may get warning signs (an aura). An aura may include: ? Seeing flashing lights or having blind spots. ? Seeing bright spots, halos, or zigzag lines. ? Having tunnel vision or blurred vision. ? Having numbness or a tingling feeling. ? Having trouble talking. ? Having weak muscles. ??? After a migraine ends, you may have symptoms. These may include: ? Tiredness. ? Trouble thinking (concentrating). How is this treated? Taking medicines that: ? Relieve pain. ? Relieve the feeling like you may vomit. ? Prevent migraine headaches. ??? Treatment may also include: ? Acupuncture. ? Lifestyle changes like avoiding foods that bring on migraine headaches. ? Learning ways to control your body functions (biofeedback). ? Therapy to help you know and deal with negative thoughts (cognitive behavioral therapy). Follow these instructions at home: Medicines ??? Take fkno-rnm-zhvfphv and prescription medicines only as told by your doctor. ??? If told, take steps to prevent problems with pooping (constipation). You may need to: ? Drink enough fluid to keep your pee (urine) pale yellow. ? Take medicines. You will be told what medicines to take. ? Eat foods that are high in fiber. These include beans, whole grains, and fresh fruits and vegetables. ? Limit foods that are high in fat and sugar. These include fried or sweet foods. Ask your doctor if you should avoid driving or using machines while you are taking your medicine. Lifestyle ??? Do not drink alcohol. ??? Do not smoke or use any products that contain nicotine or tobacco. If you need help quitting, ask your doctor. ??? Get 7?9 hours of sleep each night, or the amount recommended by your doctor. ??? Find ways to deal with stress, such as meditation, deep breathing, or yoga. ??? Try to exercise often. This can help lessen how bad and how often your migraines happen. General instructions ??? Keep a journal to find out what may bring on your migraine headaches. This can help you avoid those things. For example, write down: ? What you eat and drink. ? How much sleep you get. ? Any change to your medicines or diet. ??? If you have a migraine headache: ? Avoid things that make your symptoms worse, such as bright lights. ? Lie down in a dark, quiet room. ? Do not drive or use machinery. ? Ask your doctor what activities are safe for you. Where to find more information ??? Coalition for Headache and Migraine Patients (CHAMP): headachemigraine.org ??? [place] Migraine Foundation: americanmigrainefoundation.org ??? National Headache Foundation: headaches.org Contact a doctor if: ??? You get a migraine headache that is different or worse than others you have had. ??? You have more than 15 days of headaches in one month. Get help right away if: ??? Your migraine headache gets very bad. ??? Your migraine headache lasts more than 72 hours. ??? You have a fever or stiff neck. ??? You have trouble seeing. ??? Your muscles feel weak or like you cannot control them. ??? You lose your balance a lot. ??? You have trouble walking. ??? You faint. ??? You have a seizure. This information is not intended to replace advice given to you by you (more content not included)... [facility] 11-01-2024 History of Present illness Narrative Images from the original note were not included. [address] , [address] [facility], [address] P: [phone] F: [phone] [facility] Historian of HPI: patient River Fitzgerald is a 34 y.o. female who presents today to the Urgent Care with the following complaints and denials which have been present for 4 day(s) C/O Denies Symptom Comments [x] [] Runny Nose [] [x] Difficulty Swallowing [] [x] Sore Throat [x] [] Cough [x] [] Ear Pain [] [x] Fever [] [x] Chills [x] [] Nasal Congestion [] [] Myalgia [x] [] Sinus Pain [x] [] Sinus Pressure Additional Comments: pt has taken mucinex, zyrtec and flonase OTC medication without relief Pt has been treated for a sinus infection twice since August and believes it is back again. Pt declined any testing. Denies or . States she was on a zpak and it improved her lungs but not her sinuses ROS A complete system ROS was performed and negative aside from the pertinent positives noted in the HPI and PE. PHYSICAL EXAM Examination General Examination: General Examination: in no acute distress, well developed, well nourished Head: normocephalic, atraumatic Eyes: no discharge Ears: BOTH EARS canals normal. TM with mild erythema bilat. Nose: nares patent, thick clear nasal discharge bilat. Maxillary sinus tenderness bilat. Oral Cavity: mucosa moist Throat: pharynx with erythema and PND. No trismus, muffled voice, drooling or protrusion of soft palate. Uvula midline Neck/Thyroid: neck supple, trachea midline Lymph Nodes: no cervical adenopathy Skin: warm and dry Heart: S1, S2 normal, regular rate and rhythm, no S3, S4, no murmurs, rubs, gallops Lungs: clear anteriorly and posteriorly, clear to auscultation bilaterally, good air movement, no wheezes, rales, rhonchi Chest: normal shape and expansion, normal anteroposterior (AP) diameter Psych: alert, oriented. TREATMENT PLAN 1. Acute non-recurrent maxillary sinusitis (Primary) Start doxy. Discussed SE. Immediate eval if new, worsening sx otherwise follow up if sx not resolved with course of atb, sooner if not improving over next 72 hours. documented in this encounter [facility] 04-30-2024 Note Peripheral blood sme ar evaluation: [facility] Comment on above: Performed By: #### 1 [id number] #### [facility] [address] [place] [address] 04-30-2024 Note Peripheral blood sme ar evaluation: Essentially normal peripheral smear. CPT: 63197 Kan Fatima MD 04/30/2024 09:11:30 EDT [facility] 07-26-2023 Evaluation + Plan note Future Scheduled TestsCBC w/ Auto Diff 07/26/23Comprehensive Metabolic Panel 07/26/23Lipid Panel 07/26/23 [facility] 05-07-2023 Evaluation note Encounter Date Diagnosis Assessment [...] no improvement in 2 to 3 days [facility]AKUATORY ROSSII Other Evaluation + Plan note Future Appointments Appointment Date:08/08/2023 05:40:00 PM Scheduled Provider: Location:[facility] Appointment Type: Lab Draw Future Scheduled Tests Laboratory* CBC w/ Auto Diff 07/26/23 * Comprehensive Metabolic Panel 07/26/23 * Lipid [facility] Future Appointments Appointment Date:06/07/2024 07:00:00 AM Scheduled Provider:Rich Burnette MD Location:[facility] Appointment Type: Open Diagnostic Tests Pending * Path. Review 04/27/24 Future Scheduled Tests Laboratory* CBC w/ Auto Diff 07/26/23 * Comprehensive Metabolic Panel [facility]26[facility] Future Appointments Appointment Date:04/09/2025 04:00:00 PM Scheduled Provider:LINA ZAPATA CNP Location:[facility] Appointment Type: Open [facility] Other Evaluation note* Diagnosis Acute non-recurrent maxillary sinusitis- Primary documented in this encounter [facility] - Reported* Type Description Date Surgical History LEEP Surgical History tonsillectomy and adenoidectomy Surgical History C section Surgical History right breast lumpectomy Hospitalization History see above [employer] Other Hospital course Narrative No data available for this section [facility] No data available for this section [facility] No data available for this section [facility] Summary Purpose Family History No Family History Records Found No data available for this section No data available for this section No Family History Records FoundNo Family History Records FoundNo Family History Records FoundNo Family History Records FoundNo Family History Records FoundNo Family History Records FoundNo Family History Records Found No data available for this section No Family History Records Found Advance Directives No Advanced Directives Records FoundNo Advanced Directives Records FoundNo Advanced Directives Records FoundNo Advanced Directives Records FoundNo Advanced Directives Records FoundNo Advanced Directives Records FoundNo Advanced Directives Records FoundNo Advanced Directives Records FoundNo Advanced Directives Records Found Additional Source Comments INFORMATION SOURCE (unrecogn ized section and content) DATE CREATED AUTHOR 12/24/2022 [facility] DATE CREATED AUTHOR AUTHOR'S ORGANIZ ATION 04/28/2024 [facility] DATE CREATED AUTHOR AUTHOR'S ORGANIZ ATION 04/30/2024 [facility] DATE CREATED AUTHOR AUTHOR'S ORGANIZ ATION 06/04/2024 [facility] DATE CREATED AUTHOR AUTHOR'S ORGANIZ ATION 11/05/2024 [facility] DATE CREATED AUTHOR AUTHOR'S ORGANIZ ATION 04/12/2025 [facility] REASON FOR VISIT (unrecogniz ed section and content) bilateral ear pressure. 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 [facility]. provides no warranty or guarantee of the accuracy or completeness of information in this document.
--- NOTE | 2025-05-07 20:06 | ED_ITS ---
HPI HPI - General Adult General Chief complaint: Abdominal Pain Stated complaint: RIGHT ABDOMINAL PAIN Time Seen by Provider: 05/07/25 19:54 Source: patient Mode of arrival: walk-in Limitations: no limitations History of Present Illness HPI narrative: This 34-year-old female presents with a 4-day history of right side abdominal pain radiating through to the back. She has had some nausea and has had chills at times. She denies vomiting, anorexia or urinary symptoms. She has had 1 C- section and has undergone hysterectomy. She still has her ovaries. Related Data Home Medications ?Medication ?Instructions ?Recorded ?Confirmed No Known Home Medications 05/07/2504/15 Allergies Allergy/AdvReac Type Severity Reaction Status Date / Time amoxicillin (From Augmentin) Allergy Abdominal Verified 05/07/25 19:24 Pain clavulanic acid (From Allergy Abdominal Verified 05/07/25 19:24 Augmentin) Pain Opioid HPI Opioid Management Most Recent Opioid Data: Last Pain Scale 6 05/07/25, 19:20 Review of Systems ROS Status of ROS 10 or more systems reviewed and unremark able except as noted in history and below PFSH PFSH Social History Little interest or pleasure in doing things: not at all Feeling down, depressed, or hopeless: not at all Exam Narrative Exam Narrative: Patient does not appear acutely ill. She is obese in appearance. Vital signs are stable and are as documented. HEENT exam is normal to inspection. The oral cavity is moist. Neck is supple. Lung sounds are clear to auscultation bilaterally with good air entry. Heart has regular rate and rhythm. S1 and S2 are normal. Abdomen is protuberant and soft with tenderness over the right lower quadrant as well as right upper quadrant. There is no CVA tenderness. Bowel sounds are hypoactive and no masses are felt. Extremities are warm and dry. Constitutional Vital Signs, click to edit/add: Last Vital Signs Temp 97.9 F 05/07/25 19:20 Pulse 98 H 05/07/25 19:20 Resp 14 05/07/25 19:20 BP 160/91 H 05/07/25 19:20 Pulse Ox 98 05/07/25 19:20 Course Vital Signs Vital signs: Vital Signs Temperature 97.9 F 05/07/25 19:20 Pulse Rate 98 H 05/07/25 19:20 Respiratory Rate 14 05/07/25 19:20 Blood Pressure 160/91 H 05/07/25 19:20 Pulse Oximetry 98 05/07/25 19:20 Temperature 97.9 F 05/07/25 19:20 Pulse Rate 98 H 05/07/25 19:20 Respiratory Rate 14 05/07/25 19:20 Blood Pressure 160/91 H 05/07/25 19:20 Pulse Oximetry 98 05/07/25 19:20 Medical Decision Making MDM Narrative Medical decision making narrative: Patient presents with right-sided abdominal pain. She has a normal white count and CT scan of the abdomen pelvis is negative for any acute pathology. She is reassured and is discharged. Follow-up as advised with PCP and she is to return for worsening symptoms. Differential Diagnosis Differential Diagnosis: Cholecystitis, gallstones, kidney stones, UTI Lab Data Labs: Lab Results 05/07/25 05/07/25 Range/Units 19:55 20:45 WBC 9.2 (4.0-11.0) 10^3/uL RBC 4.44 (4.20-5.40) 10^6/uL Hgb 12.9 (12.0-16.0) g/dL Hct 38.7 (36.0-48.0) % MCV 87.2 (81.0-99.0) fL MCH 29.1 (26.7-34.0) pg MCHC 33.3 (29.9-35.2) g/dL RDW 12.8 (11.0-15.0) % Plt Count 233 (150-450) 10^3/uL MPV 9.5 (9.5-13.5) fL Neut % (Auto) 65.0 (43.0-75.0) % Lymph % (Auto) 27.2 (20.5-60.0) % [place] % (Auto) 5.5 (1.7-12.0) % Eos % (Auto) 1.6 (0.9-7.0) % Baso % (Auto) 0.4 (0.2-2.0) % Neut # (Auto) 6.0 (1.4-6.5) 10^3/uL Lymph # (Auto) 2.5 (1.2-3.8) 10^3/uL [place] # (Auto) 0.5 (0.3-0.8) 10^3/uL Eos # (Auto) 0.2 (0.0-0.7) 10^3/uL Baso # (Auto) 0.0 (0.0-0.1) 10^3/uL Abs Immat Gran (auto) 0.03 (0.00-0.03) 10^3/uL Imm/Tot Granulo (auto) 0.3 (0.0-0.5) % Sodium 142 (136-145) mmol/L Potassium 3.9 (3.5-5.1) mmol/L Chloride 104 (98-107) mmol/L Carbon Dioxide 31.0 (21.0-32.0) mmol/L Anion Gap 10.9 BUN 14.0 (7.0-18.0) mg/dL Creatinine 0.76 (0.55-1.02) mg/dL Est GFR ( Amer) >60 (>=60 mL/min/1.73m^2) Est GFR (Non-Af Amer) >60 (>=60 mL/min/1.73m^2) BUN/Creatinine Ratio 18.4 Glucose 100 (74-106) mg/dL Calcium 8.9 (8.5-10.1) mg/dL Total Bilirubin 0.3 (0.2-1.0) mg/dL AST 8 L (15-37) U/L ALT 19 (14-59) U/L Alkaline Phosphatase 94 (46-116) U/L Total Protein 6.6 (6.4-8.2) g/dL Albumin 3.1 L (3.4-5.0) g/dL Globulin 3.5 g/dL Albumin/Globulin Ratio 0.9 Lipase 32.0 (16.0-77.0) U/L Urine Color Lt. yellow (YELLOW) Urine Clarity Clear (CLEAR) Urine pH 7.0 (5.0-9.0) Ur Specific [place] 1.015 (1.005-1.025) Urine Protein Negative (NEG/TRACE) mg/dL Urine Glucose (UA) Negative (NEGATIVE) mg/dL Urine Ketones Negative (NEGATIVE) mg/dL Urine Occult Blood Negative (NEGATIVE) Urine Nitrite Negative (NEGATIVE) Urine Bilirubin Negative (NEGATIVE) Urine Urobilinogen 1.0 (0.2-1.0) EU/dL Ur Leukocyte Esterase Negative (NEGATIVE) Discharge Plan Discharge Chief Complaint: Abdominal Pain Clinical Impression: Abdominal pain Qualifiers: Abdominal location: right lower quadrant Qualified Code(s): R10.31 - Right lower quadrant pain Patient Disposition: Home, Self-Care Time of Disposition Decision: 22:26 Condition: Good Mode of Transportation: Private Vehicle Prescriptions / Home Meds: No Action No Known Home Medications Print Language: Tuvaluan Instructions: Abdominal Pain (ED) Additional Instructions: Liquid diet for 24 hours. Avoid fatty foods. Take a stool softener daily. Follow-up with your physician in the next 3 to 4 days for further workup. Return for worsening symptoms Referrals: TONNY TIAN [Primary Care Provider, Family Practice] - 1 week Discharge Date/Time: 05/07/25 22:52
[2025-05-07 20:19] LABS: Bilirubin Urine NEGATIVE (NEGATIVE); Blood Urine NEGATIVE (NEGATIVE); Clarity Urine CLEAR (CLEAR); Color Urine LT. YELLOW (YELLOW); Glucose Urine UA NEGATIVE (NEGATIVE); Ketones Urine NEGATIVE (NEGATIVE); Leukocyte Esterase Urine NEGATIVE (NEGATIVE); Nitrite Urine NEGATIVE (NEGATIVE); Protein Urine NEGATIVE (NEG/TRACE); Specific Gravity Urine 1.015 (1.005-1.025)
[2025-05-07 20:20] LABS: Urine Microscopic Indicated NO
[2025-05-07 20:51] LABS: Basophils Percent Auto 0.4 % (0.2-2.0); Eosinophils Absolute Auto 0.2 10^3/uL (0.0-0.7); Eosinophils Percent Auto 1.6 % (0.9-7.0); Hematocrit 38.7 % (36.0-48.0); Hemoglobin 12.9 g/dL (12.0-16.0); Immature Granulocytes Abs Auto 0.03 10^3/uL (0.00-0.03); Immature Granulocytes Pct Auto 0.3 % (0.0-0.5); Lymphocytes Absolute Auto 2.5 10^3/uL (1.2-3.8); Lymphocytes Percent Auto 27.2 % (20.5-60.0); Mean Corpuscular HGB Conc 33.3 g/dL (29.9-35.2); Mean Corpuscular Hemoglobin 29.1 pg (26.7-34.0); Mean Corpuscular Volume 87.2 fL (81.0-99.0); Mean Platelet Volume 9.5 fL (9.5-13.5); Monocytes Absolute Auto 0.5 10^3/uL (0.3-0.8); Monocytes Percent Auto 5.5 % (1.7-12.0); Platelet Count 233 10^3/uL (150-450); Red Blood Count 4.44 10^6/uL (4.20-5.40); Red Cell Distribution Width 12.8 % (11.0-15.0); White Blood Count 9.2 10^3/uL (4.0-11.0)
[2025-05-07 21:08] LABS: Alanine Aminotransferase 19 U/L (14-59); Albumin Globulin Ratio 0.9; Albumin Level 3.1 g/dL (3.4-5.0); Alkaline Phosphatase 94 U/L (46-116); Anion Gap 10.9; Aspartate Amino Transferase 8 U/L (15-37); BUN Creatinine Ratio 18.4; Bilirubin Total 0.3 mg/dL (0.2-1.0); Calcium 8.9 mg/dL (8.5-10.1); Chloride 104 mmol/L (98-107); Estimated GFR (African America >60 (>=60 mL/min/1.73m^2); Estimated GFR (Non-African Ame >60 (>=60 mL/min/1.73m^2); Globulin 3.5 g/dL; Glucose 100 mg/dL (74-106); Potassium 3.9 mmol/L (3.5-5.1); Sodium 142 mmol/L (136-145); Total Protein 6.6 g/dL (6.4-8.2)
== END 2025-05-07 22:52 | disposition home or self-care (01) ==
PROVIDERS: Emergency Provider Emergency Medicine; PCP Family Medicine
DX: R10.31 Right lower quadrant pain (principal); Z90.710 Acquired absence of both cervix and uterus
CPT/HCPCS: 36415; 74176; 80053; 81003; 83690; 85025; 99285

== ENCOUNTER 2025-07-30 15:52 | Outpatient (OUT) | payer BC, SELFPAY ==
--- OUTSIDE RECORDS SUMMARY | 2025-07-30 16:05 | XMS_ITS | Clinical Summary ---
Author Organization [facility] Healthcare Address [address] [place] [address] Care Team Providers Care Ship Worker Name Role Phone Rich Burnette MD Primary Care Provider [phone] Yesenia Waggoner BAT[employer]ENT PLUG INSERTER Unavailable [phone] Allergies Active Allergy Reactions Criticality Noted Date [...] Due Date Last Done Comments Influenza Vaccine (#1) 2025 08/24/2019, 2017 Cervical Cancer Screening Discontinued Pap Smear Discontinued [...] to Health Maintenance Insurance [employer]BS Care Teams Ship Worker Relationship Specialty Start Date End Date Rich Burnette MD PCP - General Family Medicine 12/06/23 Yesenia Waggoner NP [address] [facility] [address] [place] [address] PCP - Tejal [facility] 12/15/24
--- OUTSIDE RECORDS SUMMARY | 2025-07-30 16:05 | XMS_ITS | Clinical Summary ---
Author Organization [facility] Address [id number] [address] [place] [address] Care Team Providers Care Liability Claims Representative Name Role Phone Rich Burnette MD Primary Care Provider [phone] Allergies No known active allergies Medications No [...] Not on file Insurance ANTH Care Teams Liability Claims Representative Relationship Specialty Start Date End Date Rich Burnette MD [address] [place] [address] PCP - General Family Medicine 12/08/20
--- OUTSIDE RECORDS SUMMARY | 2025-07-30 16:05 | XMS_ITS | Clinical Summary ---
Author Organization [facility] Address [address] [place] [address] Care Team Providers Care Stator Winder Name Role Phone Unavailable Primary Care Provider [...]
--- OUTSIDE RECORDS SUMMARY | 2025-07-30 16:05 | XMS_ITS | Encounter Summary ---
Author Organization [facility] Address [address] [facility] [place] [address] Care Team Providers Care Customer Care Associate Name Role Phone Rich Burnette MD Primary Care Provider [phone] Yesenia Waggoner ENDLESS BELT FINISHER Unavailable [phone] Encounter Details Date Type Department Care Team (Late st Contact Info) Description 04/27/2024 Abstract [facility] [address] [place] [address] Ann Jules LPN [address] [place] [id number] Social History Tobacco Use Types Packs/Day Years [...] on filedocumented in this encounter Care Teams Customer Care Associate Relationship Specialty Start Date End Date Rich Burnette MD PCP - General Family Medicine 12/06/23 Yesenia Waggoner, ENDLESS BELT FINISHER [address] [place] [address] PCP - [facility] [employer] 12/15/24 documented as of this encounter
--- OUTSIDE RECORDS SUMMARY | 2025-07-30 16:05 | XMS_ITS | Clinical Summary ---
Author Organization [facility] Address [address] [place] [address] Phone [email or web address] Care Team Providers Care Roll Operator Name Role Phone Unavailable Primary Care Provider Unavailabl e Social History Tobacco Use Types Packs/Day Years Used Date Smoking Tobacco: Never Assessed Intimate Partner Violence Answer Date R ecorded Insults You Not on file 02/25/2021 Threatens You Not on file 02/25/2021 Screams at You Not on file 02/25/2021 Physically Hurt Not on file 02/25/2021 Intimate Partner Violence Score Not on file 02/25/2021 Stress Answer Date Recorded Stress in your Life Not on file 09/17/2024 Dealing with Stress 3 09/17/2024 Comments Unknown Sex and Gender Information Value Date Recorded Sex Assigned at Not on file Legal Sex Female 11:05 AM CDT Gender Identity Not on file Sexual Orientation Not on file Last Filed Vital Signs Vital Sign Reading Time Taken Comments Blood Pressure 111/84 08/07/2019 12:00 AM CDT Pulse - - Temperature - - Respiratory Rate - - Oxygen Saturation - - Inhaled Oxygen Concentration - - Weight 94.3 kg (208 lb) 08/07/2019 12:00 AM CDT Height 154.9 cm (5' 1 ) 08/07/2019 12:00 AM CDT Body Mass Index 39.3 08/07/2019 12:00 AM CDT Plan of Treatment Not on file
--- OUTSIDE RECORDS SUMMARY | 2025-07-30 16:05 | XMS_ITS | Encounter Summary ---
Author Organization [facility] Address [address] [place] [address] Care Team Providers Care Manufacturing Worker Name Role Phone Rich Burnette MD Primary Care Provider [phone] Yesenia Waggoner PLANT AND MACHINERY VALUER Unavailable [phone] Encounter Details Date Type Department Care Team (Late st Contact Info) Description 04/21/2024 Clinisync Result Encounter [facility] External Department Unsolicited Autumn Sotelo, DO [address] [facility] [place] [address] Social History Tobacco Use Types Packs/Day Years [...] AM EDT Narrative 04/21/2024 7:30 [place] [address] CT Scan Report Signed Patient: LIAN FITZGERALD MR#: [id number] : 1990 Acct:[id number] Age/Sex: 33 / F ADM Date: 04/20/24 Loc: CT Attending Dr: Autumn Sotelo D.O. Ordering Physician: Autumn Sotelo D.O. Date of Service: 04/20/24 Procedure(s): CT abdomen pelvis w con Accession Number(s): [id number] cc: Physician,Non-Staff M.DTatyana [place] [address] Patient Name: LIAN FITZGERALD MRN: [id number] date: 1990 Sex: F Assigned Patient Location: CT Current Patient Location: Accession/Order Number: [id number] Exam Date: 04/20/2024 09:15 Report Date: 04/21/2024 [...] M.D. Signed By: 04/21/24729 DD/ 7 TD/TT: Saxophone Assembler: Procedure Note Radiology, Radiologist, MD - 04/21/2024 [place] [address] CT Scan Report Signed Patient: LIAN FITZGERALD SMR#: [id number] : 1990Acct:[id number] Age/Sex: 33 / FADM Date: 04/20/24 Loc: CT Attending Dr: Autumn Sotelo D.O. Ordering Physician: Autumn Sotelo D.O. Date of Service: 04/20/24 Procedure(s): CT abdomen pelvis w con Accession Number(s): [id number] cc: Physician,Non-Staff Susie [address] [place] [address] Patient Name: LIAN FITZGERALD MRN: [id number] date: 1990 Sex: F Assigned Patient Location: CT Current Patient Location: Accession/Order Number: [id number] Exam Date: 04/20/2024 09:15 Report Date: 04/21/2024 [...] Tomas M.D. Signed By:04/21/24729 DD/ 7 TD/TT: Saxophone Assembler: [facility] DO [facility] Final Result documented in this encounter Visit Diagnoses Not on filedocumented in this encounter Care Teams Manufacturing Worker Relationship Specialty Start Date End Date Rich Burnette MD PCP - General Family Medicine 12/06/23 Yesenia Waggoner NP [address] [place] [address] PCP - Tejal [facility] 12/15/24 documented as of this encounter
[2025-07-30 16:36] LABS: Hematocrit 36.5 % (36.0-48.0); Hemoglobin 12.6 g/dL (12.0-16.0); Immature Granulocytes Abs Auto 0.02 10^3/uL (0.00-0.03); Immature Granulocytes Pct Auto 0.2 % (0.0-0.5); Lymphocytes Absolute Auto 2.6 10^3/uL (1.2-3.8); Mean Corpuscular HGB Conc 34.5 g/dL (29.9-35.2); Mean Corpuscular Hemoglobin 29.0 pg (26.7-34.0); Mean Corpuscular Volume 84.1 fL (81.0-99.0); Platelet Count 244 10^3/uL (150-450); Red Blood Count 4.34 10^6/uL (4.20-5.40); White Blood Count 9.7 10^3/uL (4.0-11.0)
[2025-07-30 16:54] LABS: Thyroid Stimulating Hormone 1.968 uIU/mL (0.358-3.740)
--- OUTSIDE RECORDS SUMMARY | 2025-07-30 17:00 | XMS_ITS | CCD ---
Author Organization [facility] CliniSynv Care Team Providers Care Filling Hauler Name Role Phone QUINTEN, DR LEYVA Admitting Unavailable QUINTEN, DR LEYVA Attending Unavailable REQUEST, NONE LISTED Primary Care Unavaila ortiz BOYER, DR TERESA Ayala Consulting Unavailable QUINTEN, DR [...] Rich Burnette Primary Care Physician Rich Burnette Admitting Unavailable Rich Burnette Attending Unavailable Ana Hammer Attending Unavailable Ana Hammer Admitting Unavailable Rich Burnette Attending Unavailable Rich Burnette Admitting Unavailable Rcih Burnette Attending Unavailable Rich Burnette Attending Unavailable Ana Hammer Attending Unavailable Rich Burnette Attending Unavailable Rich Burnette Attending Unavailable Rich Burnette Attending Unavailable Rich Burnette Attending Unavailable Rich Burnette Admitting Unavailable Rich Burnette Attending Unavailable AUTUMN SOTELO Attending Unavailable AUTUMN SOTELO Attending Unavailable YESENIA WAGGONER Attending Unavailable Rich Burnette MD Primary Care Provider VANESSA Hammer Attending Unavailable VANESSA Hammer Attending Unavailable NICOLASA ZAPATA Attending Unavailabl e NICOLASA ZAPATA Attending Unavailmaynor e Allergies Allergy Classification Reported Allergen(s) Allergy Type Date of Onset Reaction(s) Facility (4 sources) Amoxicillin / Clavulanate; Translations: [amoxicillin-cl avulanate] Drug Allergy Vomiting (disorder) [facility] (6 sources) Penicillins; Translations: [penicillins] Propensity to adverse reactions to drug 4 Vomiting (disorder), GI intolerance [facility] (2 sources) No Known Medication Allergies; Translations: [No Known Medication Allergies] Propensity to adverse reactions (disorder) [facility] (2 sources) Amoxicillin-Pot Clavulanate Drug Intolerance [address] [facility] (2 sources) Other Propensity to adverse reactions 4 [facility] Work Phone: Medications Current Medications [...] tab(s), Oral, q12hr, 20 tab(s), Refill(s) 0, [facility]/pharmacy #[id number], 157.5, cm, 07/26/23 16:44:00 [...] Daily, # 3 tab(s), Refills(s) 0, Pharmacy: [facility]/pharmacy #[id number], 157.5, cm, 09/30/23 10:09:00 EST, Height/Length [...] Daily, # 30 cap(s), Refills(s) 2, Pharmacy: [facility]/pharmacy #[id number], 157.5, cm, 03/22/25 11:48:00 EDT, Height/Length [...] BID, # 60 cap(s), Refills(s) 0, Pharmacy: [facility]/pharmacy #6177, 157.5, cm, 03/22/25 11:48:00 EDT, Height/Length [...] Start: 05-06-2023 fluticasone Na sheri 0.05 mg/inh [employer] Refill(s) 0, Nasal, 0 Refill(s) Start Date: 05/06/23 Status: Ordered Repeat number: 1 magnesium oxide 400 mg oral tablet (1 source) Start: 03-22-2025 End: 06-20-2025 take 1 tablet by mouth twice daily magnesium oxide 400 mg Tab 400 mg = 1 tab(s), Oral, BID, X 30 day(s), # 60 tab(s), Refills(s) 2, Pharmacy: [facility]/pharmacy #[id number], 157.5, cm, 03/22/25 11:48:00 EDT, Height/Length [...] food, # 100 cap(s), Refills(s) 0, Pharmacy: [facility]/pharmacy #[id number], 157.5, cm, 03/22/25 11:48:00 EDT, Height/Length [...] capsule) fluticasone nasal (fluticasone Nasal 0.05 mg/inh [employer]) magnesium oxide (magnesium oxide 400 mg Tab) [...] PM EDT With: LINA ZAPATA CNP Where: [address] [place] [address]- You Need to Schedule the Following Appointments Follow Up with LINA ZAPATA CNP, FAM When: Within 2 to 4 weeks Comments: Headaches & dermatology referral Where: [address] [place] [address] Business (1) Medications What How Much When Why Instructions New cholecalciferol (Vitamin D3 5000 intl units oral capsule) 1 Capsules By Mouth Every day Pressure in head with food Pickup at [facility]/pharmacy #6177 New fluticasone nasal (fluticasone Nasal 0.05 mg/ inh [employer]) Nasal, 0 Refill(s) New magnesium oxide (magnesium oxide 400 mg Tab) 1 Tablets By Mouth 2 times a day Pressure in head Duration: 30 Days Refills: 2 Pickup at [facility]/pharmacy #6177 New omega-3 polyunsaturated fatty acids (Fish Oil 1000 mg oral capsule) 1 Capsules By Mouth 2 times a day Pressure in head Pickup at [facility]/pharmacy #6177 New ubiquinone (elppa CoQ10 50 mg oral capsule) 1 Capsules By Mouth Every day Pressure in head Refills: 2 Pickup at [facility]/pharmacy #6177 Unchanged cetirizine (Zyrtec Dissolve 10 mg oral tablet, dispersible) 1 Tablets By Mouth Every day as needed for for allergy symptoms Pharmacy Information [facility]/pharmacy #[id number]: [address], [place] [id number] [phone] Allergies Augmentin (Vomiting) penicillins (Vomiting) Problems Ongoing [...] Seeing flashin (more content not included)... Normal [facility] Family Medicine Office/Clini c Noteon 03-22-2025 Family [...] food, # 100 cap(s), Refills(s) 0, [id number] 157.5, cm, 03/22/25 11:48:00 EDT, Height/Length Dosing, 118.7, kg, 03/22/25 11:48:00 EDT, Weight Dosing magnesium oxide, 400 mg = 1 tab(s), Oral, BID, X 30 day(s), # 60 tab(s), Refills(s) 2, Pharmacy: [facility]/pharmacy #[id number], 157.5, cm, 03/22/25 11:48:00 EDT, Height/Length Dosing, 118.7, kg, 03/22/25 11:48:00 EDT, Weight Dosing omega-3 polyunsaturated fatty acids, 1,000 mg = 1 cap(s), Oral, BID, # 60 cap(s), Refills(s) 0, [id number], 157.5, cm, 03/22/25 11:48:00 EDT, Height/Length Dosing, 118.7, kg, 03/22/25 11:48:00 EDT, Weight Dosing ubiquinone, 50 mg = 1 cap(s), Oral, Daily, # 30 cap(s), Refills(s) 2, [facility], 157.5, cm, 03/22/25 11:48:00 EDT, Height/Length Dosing, 118.7, kg, 03/22/25 11:48:00 EDT, Weight Dosing Follow-up With When Contact Information BENNY ORDER FULFILLMENT SPECIALIST, LINA A, FAM Within 2 to 4 weeks [address] [place] [address] (more content not included)... Normal [facility] Comment on above: Result Comment: Elec tronically Signed By: LINA ZAPATA CNP\.br\Date and Time Signed: 03/22/25 12:20 EDT RAD - CT Reporton 05-01-2024 RAD - CT Report [id number] #1.00TIFF Normal [facility] CBC w/ Auto Diffon 4 Basophils/100 WBC (Bld) 0.5 % Normal 0.0-2.0 [facility] Comment on above: Performed By: #### 2 [id number] #### [facility] [address] [place] [address] Basophils/Leukocytes Auto (Bld) [Pure # fraction] 0.0 E9/L Normal 0.0-0.2 [facility] Comment on above: Performed By: #### 2 121248 #### [facility] [address] [place] [address] Eosinophils (Bld) [#/Vol] 0.1 E9/L Normal 0.0-0.5 [facility] Comment on above: Performed By: #### 2 812504 #### [facility] [address] [place] [address] Eosinophils/100 WBC (Bld) 2.0 % Normal 0.0-8.0 [facility] Comment on above: Performed By: #### 2 338678 #### [facility] [address] [place] [address] Erythrocyte distribution width (RBC) [Ratio] 13.5 % Normal 10.9-14.2 [facility] Comment on above: Performed By: #### 2 590359 #### [facility] [address] [place] [address] Hematocrit (Bld) [Volume fraction] 39.0 % Normal 34.0-46.0 [facility] Comment on above: Performed By: #### 2 460181 #### [facility] [address] [place] [address] Hemoglobin (Bld) [Mass/Vol] 13.1 g/dL Normal 12.0-16.0 [facility] Comment on above: Performed By: #### 2 727786 #### [facility] [address] [place] [address] Lymphocytes (Bld) [#/Vol] 1.8 E9/L Normal 1.0-4.0 [facility] Comment on above: Performed By: #### 2 707297 #### [facility] [address] [place] [address] Lymphocytes/100 WBC (Bld) 26.0 % Normal 14.0-50.0 [facility] Comment on above: Performed By: #### 2 565055 #### [facility] [address] [place] [address] MCH (RBC) [Entitic mass] 29.2 pg Normal 27.0-34.0 [facility] Comment on above: Performed By: #### 2 022469 #### [facility] [address] [place] [address] MCHC (RBC) [Mass/Vol] 33.6 g/dL Normal 31.4-36.0 [facility] Comment on above: Performed By: #### 2 043280 #### [facility] [address] [place] [address] MCV (RBC) [Entitic vol] 87.0 fL Normal 80.0-100.0 [facility] Comment on above: Performed By: #### 2 999191 #### [facility] [address] [place] [address] Monocytes (Bld) [#/Vol] 0.3 E9/L Normal 0.2-1.0 [facility] Comment on above: Performed By: #### 2 829433 #### [facility] [address] [place] [address] Neutrophils (Bld) [#/Vol] 4.5 E9/L Normal 2.0-7.5 [facility] Comment on above: Performed By: #### 2 972445 #### [facility] [address] [place] [address] Neutrophils/100 WBC (Bld) 66.4 % Normal 36.0-75.0 [facility] Comment on above: Performed By: #### 2 152582 #### [facility] [address] [place] [address] Platelet mean volume (Bld) [Entitic vol] 8.3 fL Normal 6.4-10.8 [facility] Comment on above: Performed By: #### 2 772425 #### [facility] [address] [place] [address] Platelets (Bld) [#/Vol] 247.0 E9/L Normal 150.0-500.0 [facility] Comment on above: Performed By: #### 2 669704 #### [facility] [address] [place] [address] RBC (Bld) [#/Vol] 4.5 E12/L Normal 4.3-5.9 [facility] Comment on above: Performed By: #### 2 391220 #### [facility] [address] [place] [address] WBC corrected for nucl RBC Auto (Bld) [#/Vol] 6.7 E9/L Normal 4.0-11.0 [facility] Comment on above: Performed By: #### 2 122865 #### [facility] [address] [place] [address] CHEMISTRYOrdered By: SYSTEM SYSTEM on 04-27-2024 Albumin [...] 04-27-2024 Albumin [Mass/Vol] 4.1 g/dL Normal 3.3-5.0 [facility] Comment on above: Performed By: #### 2 587127 #### [facility] [address] [place] [address] Albumin/Globulin (S) [Mass conc ratio] 1.5 Normal 1.1-2.2 [facility] Comment on above: Performed By: #### 2 393283 #### [facility] [address] [place] [address] ALP [Catalytic activity/Vol] 56 Int._Unit/L Normal 21-98 [facility] Comment on above: Performed By: #### 2 630396 #### [facility] [address] [place] [address] ALT No additional P-5'-P [Catalytic activity/Vol] 20 Int._Unit/L Normal 6-46 [facility] Comment on above: Performed By: #### 2 335598 #### [facility] [address] [place] [address] Anion gap [Moles/Vol] 11 mmol/L Normal 6-16 [facility] Comment on above: Performed By: #### 2 646743 #### [facility] [address] [place] [address] AST [Catalytic activity/Vol] 16 Int._Unit/L Normal 5-43 [facility] Comment on above: Performed By: #### 2 602256 #### [facility] [address] [place] [address] Bilirubin [Mass/Vol] 0.3 mg/dL Normal 0.0-1.1 [facility] Comment on above: Performed By: #### 2 755509 #### [facility] [address] [place] [address] Calcium [Mass/Vol] 9.1 mg/dL Normal 8.9-11.1 [facility] Comment on above: Performed By: #### 2 762304 #### [facility] [address] [place] [address] Chloride [Moles/Vol] 105 mmol/L Normal 101-111 [facility] Comment on above: Performed By: #### 2 579566 #### [facility] [address] [place] [address] CO2 [Moles/Vol] 26 mmol/L Normal 21-31 [facility] Comment on above: Performed By: #### 2 324507 #### [facility] [address] [place] [address] Creatinine [Mass/Vol] 0.7 mg/dL Normal 0.5-1.3 [facility] Comment on above: Performed By: #### 2 371585 #### [facility] [address] [place] [address] Globulin (S) [Mass/Vol] 2.8 g/dL Normal 1.4-4.0 [facility] Comment on above: Performed By: #### 2 524259 #### [facility] [address] [place] [address] Glucose [Mass/Vol] 104 mg/dL Normal 55-199 [facility] Comment on above: Performed By: #### 2 565129 #### [facility] [address] [place] [address] Potassium [Moles/Vol] 4.2 mmol/L Normal 3.5-5.3 [facility] Comment on above: Performed By: #### 2 455255 #### [facility] [address] [place] [address] Protein [Mass/Vol] 6.9 g/dL Normal 6.0-7.8 [facility] Comment on above: Performed By: #### 2 140131 #### [facility] [address] [place] [address] Sodium [Moles/Vol] 138 mmol/L Normal 135-145 [facility] Comment on above: Performed By: #### 2 410657 #### [facility] [address] [place] [address] Urea nitrogen [Mass/Vol] 20 mg/dL Normal 5-21 [facility] Comment on above: Performed By: #### 2 511310 #### [facility] [address] [place] [address] Urea nitrogen/Creatinine [Mass ratio] 29 No Units High 10-20 [facility] Comment on above: Performed By: #### 2 241639 #### [facility] [address] [place] [address] Consent for Treatmenton 04-14 Consent for Treatment [id number] #1.00TIFF Normal [facility] HEMATOLOGYOrdered By: SYSTEM SYSTEM on 04-27-2024 Basophils/100 [...] Normal 4.0 - 11.0 E9/L [facility] Heme Lipid Panelon 04-27-2024 Cholesterol [Mass/Vol] 162 mg/dL Normal 120-200 [facility] Comment on above: Performed By: #### 2 218886 #### [facility] [address] [place] [address] Cholesterol in HDL [Mass/Vol] 49 mg/dL Invalid Interpretation Code [facility] Comment on above: Result Comment: '>= 60 LOW RISK' '<= 40 HIGH RISK' Performed By: #### 2 502753 #### [facility] [address] [place] [address] Cholesterol in LDL [Mass/Vol] 90 mg/dL Normal <=129 [facility] Comment on above: Performed By: #### 2 162415 #### [facility] [address] [place] [address] Cholesterol in VLDL [Mass/Vol] 22 mg/dL Normal 7-40 [facility] Comment on above: Performed By: #### 2 679038 #### [facility] [address] [place] [address] Triglyceride [Mass/Vol] 108 mg/dL Normal <=149 [facility] Comment on above: Performed By: #### 2 525628 #### [facility] [address] [place] [address] Reference Laboratory Testing Ordered By: Bree Jalloh on 04-27-2024 Test Code 00 1 Invalid Interpretation Code [facility] Test Name Peripheral Smea Invalid Interpretation Code [facility] eGFRon 04-27-2024 eGFR 115 mL/min/1.73 m2 Normal >=59 [facility] Comment on above: Order Comment: Order added by Discern Expert. Performed By: #### 1 [id number] #### [facility] [address] [place] [address] Ambulatory Visit Summaryon 0 04-26-2024 Ambulatory Visit [...] Follow-Up Appointments 2023 7:00 AM EDT With: Vasile FRAGOSO, Rich Zhou Where: [facility] Medicine [place] Normal [facility] Medicine Office/Clini c Noteon 04-26-2024 Family Medicine Office/Clinic Note HPI Staff [place] [...] measles/mumps/rubell a virus vaccine 07/11/1990 Recorded Normal [facility] Comment on above: Result Comment: Elec tronically Signed By: Vasile FRAGOSO, Rich Colvin.brii\Date and Time Signed: 04/26/24 08:01 EDT Family [...] a virus vaccine 07/11/1990 Recorded Normal [facility] Comment on above: Result Comment: Elec tronically Signed By: Vasile FRAGOSO, Rich Zhou\.br\Date and Time Signed: 10/27/23 12:56 EST Ambulatory [...] for choosing us for your care. [facility] Patient Educationon -17-20 23 Patient Education Nutrition BMI for Adults What [...] numbers. This can be done either in [place]ic ([place] or metric measurements. Note that charts and online BMI calculators are available to help you find your BMI quickly and easily without having to do these calculations yourself. To calculate your BMI in [place]ic ([place] measurements: 1. Measure your weight in [...] for Disease Control and Prevention: www.cdc.gov ? [employer] Heart Association: www.heart.org ? National Heart, Lung, and Blood [place]: www.nhlbi.nih.gov Summary ? Body mass index (BMI) is a number that is calculated from a person's weight and height. ? BMI may help estimate how much of a person's weight is composed of fat. BMI can help identify those who may be at higher risk for certain medical problems. ? BMI can be measured using [place]ic measurements or metric measurements. ? BMI charts are used to identify whether you are underweight, normal weight, overweight, or obese. This information is not intended to replace advice given to you by your health care provider. Make sure you discuss any questions you have with your health care provider. Document Revised: 07/23/2020 Document Reviewed: 05/30/2020 [employer] Patient Education ? 2022 Physician Referral Network (PRN). [facility] Ambulatory Visit Summaryon 1 Ambulatory Visit Summary RIVER FITZGERALD :1990 Visit Date:09/08/2023 Ambulatory Visit Instructions Your Diagnosis BMI 45.0-49.9, adult Class 3 obesity Back pain Tests Performed Urnls Dip Stick Non-Auto w/o Micrscpy POC 15519 Your Care Team Attending Physician - Ana [...] Urnls Dip Stick Non-Auto w/o Micrscpy POC 10386 (09/08/2023) Bilirubin Urine Dipstick - Negative Blood Urine Dipstick - Negative Glucose Urine Dipstick - Negative Ketones Urine Dipstick - Negative Leukocytes Urine Dipstick - Negative Nitrite Urine Dipstick - Negative Protein Urine Dipstick - Negative Specific [place] Urine Dipstick - 1.010 Urine Appearance Urine [...] for choosing us for your care. Normal [facility] Auto Diffon 09-08-2023 Basophils/100 WBC (Bld) 0.5 % Normal 0.0-2.0 [facility] Comment on above: Order Comment: Order Added by Discern Expert. Performed By: #### 2 467895, 8052821, 0598141, 6701746, 5595529, [id number] #### [facility] [address] [place] [address] Basophils/Leukocytes Auto (Bld) [Pure # fraction] 0.0 E9/L Normal 0.0-0.2 [facility] Comment on above: Order Comment: Order Added by Discern Expert. Performed By: #### 2 515982, 6274170, 3627746, 5666222, 0162213, 40522435 #### [facility] [address] [place] [address] Eosinophils/100 WBC (Bld) 2.1 % Normal 0.0-8.0 [facility] Comment on above: Order Comment: Order Added by Discern Expert. Performed By: #### 2 499847, 5201186, 0123507, 1365557, 0375280, 62394645 #### [facility] [address] [place] [address] Eosinophils/Leukocyte s Auto (Bld) [Pure # fraction] 0.2 E9/L Normal 0.0-0.5 [facility] Comment on above: Order Comment: Order Added by Discern Expert. Performed By: #### 2 493263, 5995917, 8352509, 4088703, 2040148, 08862993 #### [facility] [address] [place] [address] Lymphocytes/100 WBC (Bld) 24.1 % Normal 14.0-50.0 [facility] Comment on above: Order Comment: Order Added by Discern Expert. Performed By: #### 2 391105, 4222043, 0569103, 1346793, 5519766, 15679899 #### [facility] [address] [place] [address] Lymphocytes/Leukocyte s Auto (Bld) [Pure # fraction] 2.0 E9/L Normal 1.0-4.0 [facility] Comment on above: Order Comment: Order Added by Discern Expert. Performed By: #### 2 123048, 7055030, 9119745, 4686160, 6402040, 00612329 #### [facility] [address] [place] [address] Monocytes/100 WBC (Bld) 5.0 % Normal 4.0-14.0 [facility] Comment on above: Order Comment: Order Added by Discern Expert. Performed By: #### 2 527863, 1464280, 7262152, 5835847, 8013613, 85429811 #### [facility] [address] [place] [address] Monocytes/Leukocytes Auto (Bld) [Pure # fraction] 0.4 E9/L Normal 0.2-1.0 [facility] Comment on above: Order Comment: Order Added by Discern Expert. Performed By: #### 2 492922, 6577216, 9044013, 6148377, 9009366, 92824610 #### [facility] [address] [place] [address] Neutrophils/100 WBC (Bld) 68.3 % Normal 36.0-75.0 [facility] Comment on above: Order Comment: Order Added by Discern Expert. Performed By: #### 2 916939, 4954982, 1264114, 8514580, 6377069, 10758696 #### [facility] [address] [place] [address] Neutrophils/Leukocyte s Auto (Bld) [Pure # fraction] 5.5 E9/L Normal 2.0-7.5 [facility] Comment on above: Order Comment: Order Added by Discern Expert. Performed By: #### 2 899571, 0356670, 5135979, 9040623, 0670522, 33290514 #### [facility] [address] [place] [address] CBC w/ Auto Diffon 3 Erythrocyte distribution width (RBC) [Ratio] 13.7 % Normal 10.9-14.2 [facility] Comment on above: Performed By: #### 2 011684, 8862014, 0397569, 6502394, 4931070, 56777213 #### [facility] [address] [place] [address] Hematocrit (Bld) [Volume fraction] 41.8 % Normal 34.0-46.0 [facility] Comment on above: Performed By: #### 2 932756, 7945891, 3253670, 1892454, 5042337, 17119911 #### [facility] [address] [place] [address] Hemoglobin (Bld) [Mass/Vol] 13.7 g/dL Normal 12.0-16.0 [facility] Comment on above: Performed By: #### 2 599760, 3039286, 0165532, 8630236, 9287039, 42579343 #### [facility] [address] [place], [place] [address] MCH (RBC) [Entitic mass] 28.7 pg Normal 27.0-34.0 [facility] Comment on above: Performed By: #### 2 992161, 2725934, 6434670, 6081622, 3197717, 40415205 #### [facility] [address] [place] [address] MCHC (RBC) [Mass/Vol] 32.8 g/dL Normal 31.4-36.0 [facility] Comment on above: Performed By: #### 2 015294, 7050888, 1383271, 6536743, 7047031, 67801028 #### [facility] [address] [place] [address] MCV (RBC) [Entitic vol] 87.5 fL Normal 80.0-100.0 [facility] Comment on above: Performed By: #### 2 666785, 4740630, 1350735, 2906004, 7822071, 29162359 #### [facility] [address] [place] [address] Platelet mean volume (Bld) [Entitic vol] 8.7 fL Normal 6.4-10.8 [facility] Comment on above: Performed By: #### 2 179976, 0403406, 4607610, 3553176, 6516660, 13658901 #### [facility] [address] [place] [address] Platelets (Bld) [#/Vol] 264.0 E9/L Normal 150.0-500.0 [facility] Comment on above: Performed By: #### 2 721691, 6429645, 0228067, 8942276, 8334488, 68241838 #### [facility] [address] [place] [address] RBC (Bld) [#/Vol] 4.8 E12/L Normal 4.3-5.9 [facility] Comment on above: Performed By: #### 2 559164, 3693158, 9153516, 5853296, 2489156, 54791153 #### [facility] [address] [place] [address] WBC corrected for nucl RBC Auto (Bld) [#/Vol] 8.1 E9/L Normal 4.0-11.0 [facility] Comment on above: Performed By: #### 2 336694, 8909846, 4834289, 3072435, 5914420, 52312578 #### [facility] [address] [place] [address] CHEMISTRYOrdered By: SYSTEM SYSTEM on 09-08-2023 Albumin [Mass/Vol] 4.4 g/dL Normal 3.3 - 5.0 gm/dL [facility] Remisol Albumin/Globulin [Mass ratio] 1.5 {ratio} Normal 1.1 - 2.2 [facility] Remisol ALP [Catalytic activity/Vol] 66 [iU]/d Normal 21 - 98 Int._Unit/L [facility] Remisol ALT No additional P-5'-P [Catalytic activity/Vol] 17 [iU]/d Normal 6 - 46 Int._Unit/L [facility] Anion gap [Moles/Vol] 6 mmol/L Normal 6 - 16 mEq/L [facility] AST [Catalytic activity/Vol] 15 [iU]/d Normal 5 - 43 Int._Unit/L [facility] Bilirubin [Mass/Vol] 0.3 mg/dL Normal 0.0 - 1 .1 mg/dL [facility] Calcium [Mass/Vol] 9.4 mg/dL Normal 8.9 - 11. 1 mg/dL [facility] Chloride [Moles/Vol] 110 mmol/L Normal 101 - 1 11 mmol/L [facility] Cholesterol [Mass/Vol] 169 mg/dL Normal 120 - 200 mg/dL [facility] Cholesterol in HDL [Mass/Vol] 53 mg/dL Invalid Interpretation Code [facility] Comment on above: Interpretive Data: H DL > or equal to 60 mg/dL: Low cardiovascular risk HDL < 40 mg/dL : High cardiovascular risk Cholesterol in LDL [Mass/Vol] 94 mg/dL Normal <=129mg/dL [facility] Cholesterol in VLDL [Mass/Vol] 27 mg/dL Normal 7 - 40 mg/dL [facility] CO2 [Moles/Vol] 24 mmol/L Normal 21 - 31 mmol/L [facility] Creatinine [Mass/Vol] 0.7 mg/dL Normal 0.5 - 1.3 mg/dL [facility] GFR/1.73 sq M.predicted among non-blacks MDRD (S/P/Bld) [Vol rate/Area] 116 mL/min/1.73 m2 Normal >=59mL/min/1. 73 m2 [facility] Comment on above: Interpretive Data: C hronic kidney disease could be indicated at eGFR's of less than 60 mL/min/1.73m2. Kidney failure is indicated at less than 15 mL/min/1.73m2. Globulin (S) [Mass/Vol] 3.0 g/dL Normal 1.4 - 4.0 gm/dL [facility] Glucose [Mass/Vol] 80 mg/dL Normal 55 - 199 mg/dL [facility] Comment on above: Interpretive Data: I [...] Urea nitrogen/Creatinine [Mass ratio] 21 mg/mg High [facility] CMPon 09-08-2023 Albumin [Mass/Vol] 4.4 g/dL Normal 3.3-5.0 [facility] Comment on above: Performed By: #### 2 [id number], 1741398, 8371507, 1396160, 0393740, [id number] #### [facility] [address] [place] [address] Albumin/Globulin (S) [Mass conc ratio] 1.5 Normal 1.1-2.2 [facility] Comment on above: Performed By: #### 2 845049, 7105390, 9494764, 0446796, 8185173, [id number] #### [facility] [address] [place] [address] ALP [Catalytic activity/Vol] 66 Int._Unit/L Normal 21-98 [facility] Comment on above: Performed By: #### 2 603387, 2178331, 4898925, 3406651, 9278917, 17007939 #### [facility] [address] [place] [address] ALT No additional P-5'-P [Catalytic activity/Vol] 17 Int._Unit/L Normal 6-46 [facility] Comment on above: Performed By: #### 2 271615, 5329188, 7229017, 7331469, 3030021, 72545705 #### [facility] [address] [place] [address] Anion gap [Moles/Vol] 6 mmol/L Normal 6-16 [facility] Comment on above: Performed By: #### 2 583067, 2271135, 2887790, 1234058, 9489651, 78786166 #### [facility] [address] [place] [address] AST [Catalytic activity/Vol] 15 Int._Unit/L Normal 5-43 [facility] Comment on above: Performed By: #### 2 717208, 1794669, 6832688, 7579379, 1924098, 75447643 #### [facility] [address] [place] [address] Bilirubin [Mass/Vol] 0.3 mg/dL Normal 0.0-1.1 [facility] Comment on above: Performed By: #### 2 190604, 8608181, 1340040, 2692867, 2536289, 65991676 #### [facility] [address] [place] [address] Calcium [Mass/Vol] 9.4 mg/dL Normal 8.9-11.1 [facility] Comment on above: Performed By: #### 2 024606, 3313575, 2629885, 5550543, 2486389, 19921764 #### [facility] [address] [place] [address] Chloride [Moles/Vol] 110 mmol/L Normal 101-111 [facility] Comment on above: Performed By: #### 2 536251, 4180720, 3521295, 6499553, 4511992, 93031502 #### [facility] [address] [place] [address] CO2 [Moles/Vol] 24 mmol/L Normal 21-31 [facility] Comment on above: Performed By: #### 2 518205, 8528996, 1639025, 3105231, 8686936, 89629074 #### [facility] [address] [place] [address] Creatinine [Mass/Vol] 0.7 mg/dL Normal 0.5-1.3 [facility] Comment on above: Performed By: #### 2 554308, 5582427, 3102285, 1027887, 9245535, 63977852 #### [facility] [address] [place] [address] Globulin (S) [Mass/Vol] 3.0 g/dL Normal 1.4-4.0 [facility] Comment on above: Performed By: #### 2 852881, 1604184, 7822272, 0966989, 6360776, 63312802 #### [facility] [address] [place] [address] Glucose [Mass/Vol] 80 mg/dL Normal 55-199 [facility] Comment on above: Result Comment: If t his glucose result represents a fasting glucose, interpretation should refer to the following reference range: 55-99 mg/dL Performed By: #### 2 558533, 5771915, 3180263, 7274660, 1079646, 87266839 #### [facility] [address] [place] [address] Potassium [Moles/Vol] 3.9 mmol/L Normal 3.5-5.3 [facility] Comment on above: Performed By: #### 2 749788, 3712645, 6266550, 1755672, 8199421, 86196371 #### [facility] [address] [place] [address] Protein [Mass/Vol] 7.4 g/dL Normal 6.0-7.8 [facility] Comment on above: Performed By: #### 2 155024, 6332617, 9508368, 0042649, 6525585, 28632949 #### [facility] [address] [place] [address] Sodium [Moles/Vol] 136 mmol/L Normal 135-145 [facility] Comment on above: Performed By: #### 2 671020, 0313353, 5167451, 9051185, 7278723, 19399938 #### [facility] [address] [place] [address] Urea nitrogen [Mass/Vol] 15 mg/dL Normal 5- [facility] Comment on above: Performed By: #### 2 188167, 2588227, 5838298, 7167789, 2467387, 59989773 #### [facility] [address] [place] [address] Urea nitrogen/Creatinine [Mass ratio] 21 No Units High 10- [facility] Comment on above: Performed By: #### 2 480300, 1497820, 2561386, 9477524, 8940531, 67258651 #### [facility] [address] [place] [address] Family Medicine Office/Clini c Noteon 09-08-2023 Family [...] Thyroid Stimulating Hormone Orders: Lab Specimen Collect [id number] Follow-up No qualifying data available Problem List/Past [...] Protein Urine Dipstick: Negative (09/08/23 11:34:00) Specific [place] Urine Dipstick: 1.010 (09/08/23 11:34:00) Urine Appearance Urine Dipstick: Clear (09/08/23 11:34:00) Urine Color Urine Dipstick: Light yellow (09/08/23 11:34:00) Urobilinogen Urine Dipstick: Normal 0.2-1 EU/dl (09/08/23 11:34:00) pH Urine Dipstick: 6.5 (09/08/23 11:34:00) Normal [facility] Comment on above: Result Comment: Elec [...] 32.8 g/dL Normal 31.4 - 36.0 gm/dL [facility] HemeAutoSS MCV (RBC) [Entitic vol] 87.5 fL Normal 80.0 - 100.0 fL [facility]eAutoSS Platelet mean volume (Bld) [Entitic vol] 8.7 fL Normal 6.4 - 10.8 fL [facility] HemeAutoSS Platelets (Bld) [#/Vol] 264.0 E9/L Normal 150.0 - 500.0 E9/L [facility] HemeAutoSS RBC (Bld) [#/Vol] 4.8 E12/L Normal 4.3 - 5.9 E12/L [facility]eAutoSS WBC corrected for nucl RBC Auto (Bld) [#/Vol] 8.1 E9/L Normal 4.0 - 11.0 E9/L [facility]eAutoSS Lipid Panelon 09-08-2023 Cholesterol [Mass/Vol] 169 mg/dL Normal 120-200 [facility] Comment on above: Performed By: #### 2 476878, 7635962, 6289447, 9784481, 6024931, 25994419 #### [facility] [address] [place] [address] Cholesterol in HDL [Mass/Vol] 53 mg/dL Invalid Interpretation Code [facility] Comment on above: Result Comment: HDL > or equal to 60 mg/dL: Low cardiovascular risk HDL < 40 mg/dL : High cardiovascular risk Performed By: #### 2 279043, 6687202, 8647169, 6174940, 4536997, 54358194 #### [facility] [address] [place] [address] Cholesterol in LDL [Mass/Vol] 94 mg/dL Normal <=129 [facility] Comment on above: Performed By: #### 2 690606, 7143262, 2863805, 5000508, 7179914, 81607845 #### [facility] [address] [place] [address] Cholesterol in VLDL [Mass/Vol] 27 mg/dL Normal 7-40 [facility] Comment on above: Performed By: #### 2 946955, 2959012, 5142389, 1805451, 5299564, 63865871 #### [facility] [address] [place] [address] Triglyceride [Mass/Vol] 133 mg/dL Normal <=149 [facility] Comment on above: Performed By: #### 2 443562, 3149179, 5696120, 7089890, 9773568, 44602280 #### [facility] [address] [place] [address] TSHon 09-08-2023 TSH Qn 1.96 m[IU]/L Normal 0.34-5.60 [facility] Comment on above: Performed By: #### 2 436414, 5873715, 0268349, 5554646, 8362037, 95554719 #### [facility] [address] [place] [address] eGFRon 09-08-2023 GFR/1.73 sq M.predicted among non-blacks MDRD (S/P/Bld) [Vol rate/Area] 116 mL/min/1.73 m2 Normal >=59 [facility] Comment on above: Order Comment: Order added by Discern Expert. Result Comment: Director Data Management ben kidney disease could be indicated at eGFR's of less than 60 mL/min/1.73m2. Kidney failure is indicated at less than 15 mL/min/1.73m2. Performed By: #### 2 244402, 3558362, 6399884, 0763361, 8962291, 69422571 #### [facility] [address] [place] [address] Nurse Consultation Noteon Nurse Consultation Note Reason [...] couldn't get her. Patient will go to [facility] [place] next time she's in [place] Medications amoxicillin-clavulan ate 875 mg-125 mg Tab, [...] measles/mumps/rubell a virus vaccine 07/11/1990 Recorded Normal [facility] Family Medicine Office/Clini c Noteon 07-26-2023 Family [...] tab(s), Oral, q12hr, 20 tab(s), Refill(s) 0, [facility]/pharmacy #[id number], 157.5, cm, 07/26/23 16:44:00 [...] measles/mumps/rubell a virus vaccine 07/11/1990 Recorded Normal [facility] Comment on above: Result Comment: Elec tronically Signed By: Vasile FRAGOSO, Rich Colvin.br\Date and Time Signed: 07/26/23 17:11 EDT US [...] TERESA BOYER Date: 2022-12-22 18:21 Normal [facility] CORTISOL FREE, SERUMon 08-31 Cortisol, Free Dialysis, LCMS 0.116 ug/dL Normal [facility] Comment on above: Result Comment: Thes e tests were developed and their performance characteristics determined by [facility]. They have not been cleared or approved by the Food and Drug Administration. Reference Range: 8 AM 0.10 - 1.20 4 PM 0.042 - 0.872 Performed By: #### F RECORT #### [facility] [address] [place] [address] Dr. Edie Ricnon THYROGLOBULINon 08-28-2022 Thyroglobulin 15 ng/mL Normal [place] Comment on above: Result Comment: This test was developed and its performance characteristics determined by [facility]. It has not been cleared or approved [...] ng/mL. Performed By: #### T GRIA #### [facility] [address] [place] [address] Dr. Edie Rincon ESTRONEon 08-27-2022 Estrone, Serum 47 pg/mL Normal 27-231 [facility] Comment on above: Result Comment: Rang e Adult (Premenopausal) 27 - 231 Menstrual Cycle (1-10 days) 19 - 149 Menstrual Cycle (11-20 days) 32 - 176 Menstrual Cycle (21-30 days) 37 - 200 Performed By: #### E STRONE #### [facility] [address] [place] [address] Dr. Edie Rincon PAP ACOG PANEL 2: 30 to 65on 08-25-2022 . . Normal [facility] Comment on above: Result Comment: Perf ormed at: WB Performed By: #### 4 [id number] #### [facility] [address] [place] [address] Dr. Edie Rincon Age Gdln ACOG Testing 30-65 [facility] Comment on above: Performed By: #### 4 [id number] #### [facility] [address] [place] [address] Dr. Edie Rincon DIAGNOSIS: Comment [facility] Comment on above: Result Comment: NEGA TIVE FOR INTRAEPITHELIAL LESION OR MALIGNANCY. Performed at: [facility] Performed By: #### 4 [id number] #### [facility] [address] [place] [address] Dr. Edie Rincon HPV Aptima Negative Normal Negative [facility] Comment on above: Result Comment: This nucleic acid amplification test detects fourteen high-risk HPV types (16,18,31,33,35,39,45,51,52,56,58,59,66,68) without differentiation. Performed at: =G Performed By: #### 4 [id number] #### [facility] [address] [place] [address] Dr. Edie Rincon Methodology: Comment Normal [facility] Comment on above: Result Comment: This liquid based ThinPrep(R) pap test was screened with the use of an image guided system. Performed at: WB Performed By: #### 4 [id number] #### [facility] [address] [place] [address] Dr. Edie Rincon Note: Comment Normal [facility] Comment on above: Result Comment: The Pap smear is a screening test designed to aid in the detection of premalignant and malignant conditions of the uterine cervix. It is not a diagnostic procedure and should not be used as the sole means of detecting cervical cancer. Both false-positive and false-negative reports do occur. . Performed at: WB Performed By: #### 4 [id number] #### [facility] [address] [place] [address] Dr. Edie Rincon Performed by: Comment Normal [facility] Comment on above: Result Comment: Robert Martell Solar Installation Technician (ASCP) Performed at: WB Performed By: #### 4 [id number] #### [facility] [address] [place] [address] Dr. Edie Rincon Specimen adequacy: Comment Normal [facility] Comment on above: Result Comment: Sati sfactory for evaluation. No endocervical component is identified. Performed at: WB Performed By: #### 4 [id number] #### [facility] [address] [place] [address] Dr. Edie Rincon SEROTONINon 08-25-2022 Serotonin, Serum 54 ng/mL Normal 31-[address] [facility] Comment on above: Performed By: #### F RECORT #### [facility] [address] [address] [address] Edie Rincon FREE TESTOSTERONEon 08-23-20 22 Free Testosterone(Direct) 2.8 pg/mL Normal 0.0-4.2 [facility] Comment on above: Performed By: #### F T4, FERR #### [facility] [address] [place] [address] Dr. Edie Rincon REVERSE T3on 08-23-2022 Reverse T3, Serum 11.1 ng/dL Normal 9.2-24.1 [facility] Comment on above: Result Comment: This test was developed and its performance characteristics determined by [employer]. It has not been cleared or approved by the Food and Drug Administration. Performed By: #### F RECORT #### [facility] [address] [place] [address] Dr. Edie Rincon VIT D 1 25 DIHYDROXYon 08-21 Calcitriol(1,25 di-OH Vit D) 18.8 pg/mL Critically low 24.8-81.5 [facility] Comment on above: Result Comment: Pl ease note reference interval change Performed By: #### V [id number] #### [facility] [address] [place] [address] Dr. Edie Rincon C-PEPTIDE, SERUMon 2 C-Peptide, Serum 2.9 ng/mL Normal 1.1-4.[address] [facility] Comment on above: Result Comment: C-Pe ptide reference interval is for fasting patients. Performed By: #### F RECORT #### [facility] [address] [place] [address] Dr. Edie Rincon DHEA-SULFATEon 08-20-2022 DHEA-Sulfate 271.0 ug/dL Normal 84.8-378.0 [facility] Comment on above: Performed By: #### D HEASUL #### [facility] [address] [place] [address] Dr. Edie Rincon ESTRADIOLon 08-20-2022 Estradiol 68.2 pg/mL Normal [facility] Comment on above: Result Comment: Adul t Female: Follicular phase 12.5 - 166.0 Ovulation phase 85.8 - 498.0 Luteal phase 43.8 - 211.0 Postmenopausal <6.0 - 54.7 1st trimester 215.0 - >4300.0 Kai ECLIA methodology Performed By: #### F RECORT #### [facility] [address] [place] [address] Dr. Edie Rincon INSULINon 08-20-2022 Insulin 17.7 uIU/mL Normal 2.6-24.9 [facility] Comment on above: Performed By: #### F T4, FERR #### [facility] [address] [place] [address] Dr. Edie Rincon PROGESTERONEon 08-20-2022 Progesterone 4.5 ng/mL Normal [facility] Comment on above: Result Comment: Foll icular phase 0.1 - 0.9 Luteal phase 1.8 - 23.9 Ovulation phase 0.1 - 12.0 First trimester 11.0 - 44.3 Second trimester 25.4 - 83.3 Third trimester 58.7 - 214.0 Postmenopausal 0.0 - 0.1 Performed By: #### F RECORT #### [facility] [address] [place] [address] Dr. Edie Rincon SEX HORMONE-BINDING GLOBULIN on 08-20-2022 Sex Horm Binding Glob, Serum 54.6 nmol/L Normal 24.6-122.0 [facility] Comment on above: Performed By: #### F T4, FERR #### [facility] [address] [place] [address] Dr. Edie Rincon T3, TOTAL (TRIIODOTHYRONINE) on 08-20-2022 T3, TOTAL 128 ng/dL Normal 71-180 [facility] Comment on above: Performed By: #### F RECORT #### [facility] [address] [place] [address] Dr. Edie Rincon TESTOSTERONE, TOTALon 2021 Testosterone [Mass/Vol] 45 ng/dL Normal 8-60 [facility] Comment on above: Performed By: #### T ESTTOT #### [facility] [address] [address] [address] Edie Rincon THYROGLOBULIN ABon Thyroglobulin Antibody <1.0 Normal 0.0-0.9 [facility] Comment on above: Result Comment: Thyr oglobulin Antibody measured by [employer] Methodology Performed By: #### F T4, FERR #### [facility] [address] [place] [address] Dr. Edie Rincon THYROID PEROXIDASE ABon 10-0 Thyroid Peroxidase (TPO) Ab <8 Normal 0-34 [facility] Comment on above: Performed By: #### F T4, FERR #### [facility] [address] [place] [address] Dr. Edie Rincon FERRITINon 08-18-2022 Ferritin [Mass/Vol] 119.0 ng/mL Normal 6.2-137.0 [facility] Comment on above: Performed By: #### F T4, FERR #### [facility] [address] [place] [address] Dr. Edie Rincon FREE T3on 08-18-2022 FREE T3 2.18 pg/mlL Normal 2.18-3.98 [facility] Comment on above: Performed By: #### F T4, FERR #### [facility] [address] [place] [address] Dr. Edie Rincon FREE T4on 08-18-2022 Free T4 [Mass/Vol] 0.84 ng/dL Normal 0.76-1.46 [facility] Comment on above: Performed By: #### F T4, FERR #### [facility] [address] [place] [address] Dr. Edie Rincon GLUCOSE BLOODon 08-18-2022 Glucose [Mass/Vol] 89 mg/dL Normal 74-106 [facility] Comment on above: Performed By: #### F T4, FERR #### [facility] [address] [place] [address] Dr. Edie Rincon GLYCOHEMOGLOBIN A1Con 2021 ADA RECOMMENDATION SEE BELOW Normal [facility] Comment on above: Result Comment: ADA RECOMMENDED LIMIT 4.0 - 6.0 ADA THERAPEUTIC TARGET < 7.0 ACTION SUGGESTED > 7.0 Performed By: #### A 1C #### [facility] [address] [place] [address] Dr. Edie Rincon Glucose [Mass/Vol] 108 mg/dL Normal [facility] Comment on above: Performed By: #### A 1C #### [facility] [address] [place] [address] Dr. Edie Rincon HbA1c (Bld) [Mass fraction] 5.4 % Normal 4.5-6.2 [facility] Comment on above: Performed By: #### A 1C #### [facility] [address] [place] [address] Dr. Edie Rincon T4on 08-18-2022 T4 [Mass/Vol] 6.70 ug/dL Normal 4.80-13.90 [place] Comment on above: Performed By: #### F T4, FERR #### [facility] [address] [place] [address] Dr. Edie Rincon TSHon 08-18-2022 TSH 1.961 uIU/mL Normal 0.358-3.740 [place] Comment on above: Performed By: #### F T4, FERR #### [facility] [address] [place] [address] Dr. Edie Rincon Vital Signs Date Time Vital Sign Value Performing Clinician Facility 03-22-2025 11:39-0400 Blood Pressure Location LINA ZAPATA [facility] 03-22-2025 11:39-0400 Body temperature 97.52 [degF] LINA ZAPATA [facility] 03-22-2025 11:39-0400 Diastolic blood pressure 84 mm[Hg] LINA ZAPATA [facility] 03-22-2025 11:39-0400 Heart rate 78 /min LINA ZAPATA [facility] 03-22-2025 11:39-0400 Respiratory rate 20 /min LINA ZAPATA [facility] 03-22-2025 11:39-0400 SaO2% (BldA) [Mass fraction] 100 % LINA GARCIAANN [facility] 03-22-2025 11:39-0400 Systolic blood pressure 132 mm[Hg] LINA GARCIAANN [facility] 11-01-2024 17:11-0500 Body temperature 97.81 [degF] Yesenia Waggoner MARINE MACHINIST Work Phone: [facility] 11-01-2024 17:11-0500 Diastolic blood pressure 84 mm[Hg] Yesenia Waggoner MARINE MACHINIST Work Phone: [facility] 11-01-2024 17:11-0500 Heart rate 89 /min Yesenia Waggoner MARINE MACHINIST Work Phone: [facility] 11-01-2024 17:11-0500 SaO2% (BldA) [Mass fraction] 98 % Yesenia Waggoner MARINE MACHINIST Work Phone: [facility] 11-01-2024 17:11-0500 Systolic blood pressure 118 mm[Hg] Yesenia Waggoner MARINE MACHINIST Work Phone: [facility] 05-07-2023 12:05-0400 Body height 157.48 cm Sayda Irene Other [facility] Other 05-07-2023 12:05-0400 Body mass index (BMI) [Ratio] 44.81 kg/m2 Sayda Irene Other [facility] Other 05-07-2023 12:05-0400 Body temperature 97.3 [degF] Sayda Irene Other [facility] Other 05-07-2023 12:05-0400 Body weight 111.13 kg Sayda Irene Other [facility] Other 05-07-2023 12:05-0400 Diastolic blood pressure 81 mm[Hg] Sayda Irene Other [facility] Other 05-07-2023 12:05-0400 Respiratory rate 18 /min Sayda Irene Other [facility] Other 05-07-2023 12:05-0400 SaO2% (BldA) [Mass fraction] 98 % Sayda Irene Other [facility] Other 05-07-2023 12:05-0400 Systolic blood pressure 125 mm[Hg] Sayda rIene Other [facility] Other Encounters Encounter Date Encounter Type Care Provider Facility Start: 07-30-2025 ambulatory RAMP ATTENDANT Ana L Jaquelin Facil ity:[facility] Start: 07-16-2025 End: 07-16-2025 ambulatory RAMP ATTENDANT Ana L Jaquelin Facility:[facility] Lerna keri Start: 04-09-2025 End: 04-09-2025 ambulatory ORDER FULFILLMENT SPECIALIST LINA A BENNY Facility:[facility] Start: 03-22-2025 End: 03-22-2025 ambulatory ORDER FULFILLMENT SPECIALIST LINA A BENNY Facility: [facility] Start: 03-22-2025 End: 03-22-2025 Patient encounter procedure LINA ZAPATA [facility] Start: 11-01-2024 End: 11-01-2024 Office outpatient new 45 minutes Yesenia Waggoner MARINE MACHINIST Work Phone: [facility] Comment on above: Acute non-recurrent maxillary sinusitis (Primary Dx) Start: 11-01-2024 End: 11-01-2024 ambulatory YESENIA WAGGONER Not Available Start: 06-07-2024 ambulatory Rich DavisTatyana Burnette Facility :[facility] Katherine Start: 04-27-2024 End: 04-27-2024 ambulatory Rich Burnette [place] Start: 04-27-2024 End: 04-27-2024 Patient encounter procedure Rich Abelardo [facility] Start: 04-26-2024 End: 04-26-2024 ambulatory Rich Burnette Facility:[facility] Chapis saavedra Start: 03-29-2024 Patient encounter procedure Yesenia Waggoner MARINE MACHINIST Work Phone: [facility] Start: 03-29-2024 End: 03-29-2024 ambulatory AUTUMN QUINTEN Not Available Start: 12-06-2023 End: 12-06-2023 ambulatory AUTUMN QUINTEN Not Available Start: 09-30-2023 End: 09-30-2023 ambulatory Rich Burnette Facility: [facility] Start: 09-08-2023 End: 09-08-2023 Lab Drop off Ana Mami [facility] Start: 09-08-2023 End: 09-08-2023 ambulatory Ana L Jaquelin [place] [place]: 08-08-2023 End: 08-08-2023 ambulatory Rich Burnette Facility: [facility] Start: 07-26-2023 End: 07-26-2023 Lab Drop off Rich Burnette [facility] Start: 07-26-2023 End: 07-26-2023 ambulatory Rich Burnette [place] [place]: 05-11-2023 End: 05-11-2023 ambulatory Sayda Irene Other [facility] Other Start: 05-11-2023 Telephone encounter Sayda Irene [facility] Start: 05-09-2023 End: 05-09-2023 ambulatory Remedios Padilla Other [facility] Other Start: 05-09-2023 Telephone encounter Remedios Padilla [facility] Start: 05-07-2023 End: 05-07-2023 ambulatory Sayda Maria Victoria Other [facility] Other Start: 05-07-2023 Office outpatient vi sit 15 minutes Sayda Irene [facility] Start: 12-21-2022 End: 12-22-[address] AUTUMN SOTELO Facility:[facility] Start: 08-18-2022 End: 08-18-[address] AUTUMN SOTELO Facility:[facility] Start: 08-18-2022 End: 08-19-[address] AUTUMN SOTELO Facility:[facility] Procedures Date Procedure Procedure Detail Performing Clinician Start: 03-29-2024 H/O: hysterectomy H/O: hysterectomy Yesenia Waggoner NP Work Phone: Adenoid excision Rich Burnette section Rich Burnette Hysterectomy Rich Burnette Loop electrosurgical excision procedure of cervix Rich Burnette Lumpectomy of right breast S amtejal Burnette Tonsillectomy Rich Burnette Immunizations Immunization Date Immunization Notes Care Provider Fa cility 08-24-2019 influenza virus vaccine, unspecified formulation iRch Burnette [facility] 12-01-2017 influenza virus vaccine, unspecified formulation Rich Burnette [facility] 12-10-2015 tetanus toxoid, reduced diphtheria toxoid, and acellular pertussis vaccine, adsorbed Rich Burnette [facility] 11-11-2000 hepatitis B vaccine, pediatric or pediatric/adolescent dosage Rich Burnette [facility] 07-11-2000 hepatitis B vaccine, pediatric or pediatric/adolescent dosage Rich Burnette [facility] 05-09-2000 hepatitis B vaccine, pediatric or pediatric/adolescent dosage Rich Burnette [facility] 05-28-1991 Hib, unspecified formulation Rich Burnette [facility] 07-11-1990 measles, mumps and rubella virus vaccine Richtejal Burnette [facility] NEGATED: Highlighted row has not occurred!09-08-2023 influenza virus vaccine, unspecified formulation Ana Herbertab [facility] Payers Date Payer Category [facility] [id number] 2023 Unknown [id number] 2023 Unknown [id number] 1988 Unknown [id number] 2..840.1.730868.3.579.2. 593 1988 Unknown [id number] 12.30.840.1.974781.3.579.2. 593 1988 Unknown [id number] 12.30.840.1.313979.3.579.2. 593 1988 Unknown [id number] 2.16.840.1.361467.3.579.2. 1988 Unknown [id number] 2.16.840.1.880155.3.579.2. 1988 Unknown [id number] 2.16.840.1.024521.3.579.2. 1988 Unknown [id number] 2.16.840.1.249009.3.579.2. 1988 Unknown [id number] 2.16.840.1.387536.3.579.2. 1988 Unknown [id number] 2.16.840.1.318960.3.579.2 1988 Unknown [id number] 2.16.840.1.105420.3.579.2 1988 Unknown [id number] 2.16.840.1.078023.3.579.2 1988 Unknown [id number] 2.16.840.1.297191.3.579.2 1988 Unknown [id number] 2.16.840.1.682056.3.579.2 1988 Unknown [id number] 2.16.840.1.255864.3.579.2. 1258 1988 Unknown [id number] 2.16.840.1.297739.3.579.2. 1258 1988 Unknown [id number] 2.16.840.1.588165.3.579.2. 1258 1988 Unknown [id number] 2.16.840.1.098413.3.579.2 1988 Unknown [id number] 2.16.840.1.644502.3.579.2. 1988 Unknown [id number] 2.16.840.1.050736.3.579.2 1988 Unknown [id number] 2.16.840.1.926849.3.579.2. 727 1959 Unknown [id number] Unknown [id number] Social History Date Type Detail Facility Unknown if ever smoked [facility] Other Sex Assigned At [facility] Start: 07-26-2023 End: 03-22-2025 Tobacco smoking status Ex-smoker (finding) [facility] Start: 11-16-2023 Tobacco smoking status NHIS Tobacco smoking consumption unknown [facility] Start: 11-01-2024 Alcoholic beverage intake Current drinker of alcohol (finding) [facility] Start: 11-16-2023 Tobacco Comment *current smoker, frequency unknown [facility] Start: 11-16-2023 Alcohol Comment caffeine: 1-[address] [facility] Start: 1988 Sex assigned at Not on file [facility] Sexual Orientation [facility] Start: 11-14-2017 Sex Female (finding) [facility] Functional Status Date Assessment Result Facility 03-22-2025 Functional Status N/A [facility] Clinical Notes 05-07-2023 to 03-22-2025 Yesenia Waggoner, LELA - 11/01/2024 5:05 PM ESTLaboratory Note Date & Type Note Facility 03-22-2025 Hospital Discharge instructions Patient Education 03/22/2025 12:20:42 Migraine Headache, Mnpv-oh-Atar Migraine Headache A migraine headache is a [...] Follow these instructions at home: Medicines Take hwgq-por-dqndbcj and prescription medicines only as told by [...] for Headache and Migraine Patients (CHAMP): [email or web address].org Chinese Migraine Foundation: [email or web address].org National Headache Foundation: headaches.org [...] provider. Document Revised: 06/27/2023 Document Reviewed: 06/27/2023 [employer] Patient Education 2023 [employer] 03/22/2025 12:20:40 General Headache Without Cause, Hhtf-rb-Uedi General Headache Without Cause A headache is pain or discomfort you feel around the head or neck area. There are many causes and types of headaches. In some cases, the cause may not be found. Follow these instructions at home: Watch your condition for any changes. Let your doctor know about them. Take these steps to help with your condition: Managing pain Take iujm-jxm-wsdxgvq and prescription medicines only as told by [...] provider. Document Revised: 03/31/2022 Document Reviewed: 03/31/2022 [employer] Patient Education 2023 Physician Referral Network (PRN). Follow Up Care 03/18/2025 17:37:34 With:LINA ZAPATA CNP, FAM Address: [address] [place] [phone] Business (1) When:2 to 4 weeks Comments:Headaches & dermatology referral [facility] 03-22-2025 Note Patient Education Neurology Migraine Headache [...] these instructions at home: Medicines ??? Take ftzk-rch-koixzsc and prescription medicines only as told by [...] Headache and Migraine Patients (CHAMP): [email or web address].org ??? Chinese Migraine Foundation: [email or web address].org ??? National Headache Foundation: [...] you by you (more content not included)... [facility] 11-01-2024 History of Present illness Narrative Images from the original note were not included. [address] , [address] [facility], [address] P: [phone] F: [phone] HPI Historian of HPI: patient River Fitzgerald is [...] next 72 hours. documented in this encounter [facility] 04-30-2024 Note Peripheral blood sme ar evaluation: [facility] Comment on above: Performed By: #### 1 [id number] #### [facility] [address] [place] [address] 04-30-2024 Note Peripheral blood sme ar evaluation: Essentially normal peripheral smear. CPT: 78653 Kan Fatima MD 04/30/2024 09:11:30 EDT [facility] 07-26-2023 Evaluation + Plan note Future Scheduled TestsCBC w/ Auto Diff 07/26/23Comprehensive Metabolic Panel 07/26/23Lipid Panel 07/26/23 [facility] 05-07-2023 Evaluation note Encounter Date Diagnosis Assessment [...] no improvement in 2 to 3 days [facility] Other Evaluation + Plan note Future Appointments Appointment Date:08/08/2023 05:40:00 PM Scheduled Provider: Location:[facility] Appointment Type: Lab Draw Future Scheduled Tests Laboratory* CBC w/ Auto Diff 07/26/23 * Comprehensive Metabolic Panel 07/26/23 * Lipid Panel 07/26/23 [facility] Future Appointments Appointment Date:06/07/2024 07:00:00 AM Scheduled Provider:Rich Burnette MD Location:[facility] Appointment Type: Open Diagnostic Tests Pending * Path. Review 04/27/24 Future Scheduled Tests Laboratory* CBC w/ Auto Diff 07/26/23 * Comprehensive Metabolic Panel 07/26/23 [facility] Future Appointments Appointment Date:04/09/2025 04:00:00 PM Scheduled Provider:LINA ZAPATA CNP Location:[facility] Appointment Type: Open [facility]No [facility] [employer] Other Evaluation note* Diagnosis Acute non-recurrent maxillary sinusitis- Primary [facility] - Reported* Type Description Date Surgical History LEEP Surgical History tonsillectomy and adenoidectomy Surgical History C section Surgical History right breast lumpectomy Hospitalization History see above [facility] Other Hospital course Narrative No data available for this section [facility] No data available for this section [facility] No data available for this section [facility] Summary Purpose Family History No Family History [...] CREATED AUTHOR AUTHOR'S ORGANIZ ATION 04/28/2024 [facility] DATE CREATED AUTHOR AUTHOR'S ORGANIZ ATION 04/30/2024 [facility] DATE CREATED AUTHOR AUTHOR'S ORGANIZ ATION 06/04/2024 [facility] DATE CREATED AUTHOR AUTHOR'S ORGANIZ ATION 11/05/2024 [facility] EPIC DATE CREATED AUTHOR AUTHOR'S ORGANIZ ATION 07/29/2025 [facility] REASON FOR VISIT (unrecogniz ed section and content) bilateral ear pressure. 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 [facility] [employer] [facility]. provides no warranty or guarantee of the accuracy or completeness of information in this document.
[2025-08-01 04:07] LABS: FSH 6.6 mIU/mL (.)
[2025-08-02 15:08] LABS: Estrogens, Total 145 pg/mL (.)
== END 2025-07-30 15:53 | disposition home or self-care (01) ==
PROVIDERS: PCP Nurse Practitioner; Visit Provider Nurse Practitioner
DX: R59.9 Enlarged lymph nodes, unspecified (principal); R53.83 Other fatigue; E66.01 Morbid (severe) obesity due to excess calories; Z87.891 Personal history of nicotine dependence; Z68.42 Body mass index [BMI] 45.0-49.9, adult; R23.4 Changes in skin texture; N95.1 Menopausal and female climacteric states; R45.4 Irritability and anger
CPT/HCPCS: 36415; 82533; 82672; 83001; 83002; 83525; 84144; 84146; 84403; 84443; 85025